=== PATIENT | female | born 1940 | race Caucasian/White ===

== ENCOUNTER 2020-04-17 10:19 | Outpatient (CLI) | payer MEDICARE, SELFPAY ==
--- NOTE | ~2020-04-17 | MM_ITS ---
EXAMINATION: MM screening [facility] BI w delfin HISTORY: Screening TECHNIQUE: Craniocaudal and mediolateral oblique 3-D tomosynthesis images were obtained and synthetic 2-D images were generated. CAD analysis was submitted and interpreted. COMPARISON: Comparison to multiple prior studies sequentially, with oldest reviewed study dated 09/18. BREAST PARENCHYMAL COMPOSITION: There are scattered areas of fibroglandular density. FINDINGS: There is architectural distortion in the right breast, consistent with previous lumpectomy. There is no evidence of suspicious mass, calcification, or architectural distortion to suggest malig micha in either breast. There has been no suspicious interval change. IMPRESSION: 1. No mammographic evidence of malignancy. 2. Recommend routine screening mammography in one year. BI-RADS Category 2: Benign finding(s). Reviewed, dictated and finalized at location A.
== END 2020-04-17 10:20 | disposition home or self-care (01) ==
LOC: ANHIMG 10:24
PROVIDERS: PCP Internal Medicine; Visit Provider Internal Medicine
DX: Z12.31 Encounter for screening mammogram for malignant neoplasm of breast (principal)
CPT/HCPCS: 77063; 77067

== ENCOUNTER 2020-11-02 15:35 | Outpatient (CLI) | payer MEDICARE, SELFPAY | END 2020-11-02 15:36 | disposition home or self-care (01) | LOC: ANHCOVIDVC 15:35 | PROVIDERS: PCP Internal Medicine | DX: Z23 Encounter for immunization (principal) | CPT/HCPCS: 0001A; 91300 ==

== ENCOUNTER 2020-11-23 15:44 | Outpatient (CLI) | payer MEDICARE, SELFPAY | END 2020-11-23 15:45 | disposition home or self-care (01) | LOC: ANHCOVIDVC 15:44 | PROVIDERS: PCP Internal Medicine | DX: Z23 Encounter for immunization (principal) | CPT/HCPCS: 0002A; 91300 ==

== ENCOUNTER 2021-05-08 10:55 | Outpatient (CLI) | payer MEDICARE, SELFPAY ==
--- NOTE | ~2021-05-08 | MM_ITS ---
EXAMINATION: MM screening [facility] BI w delfin HISTORY: Screening mammogram TECHNIQUE: Craniocaudal and mediolateral oblique 3-D tomosynthesis images were obtained and synthetic 2-D images were generated. CAD analysis was submitted and interpreted. COMPARISON: 04/17/2020, 03/21/2019, 03/19/2018 bilateral digital screening mammogram examinations BREAST PARENCHYMAL COMPOSITION: There are scattered areas of fibroglandular density. FINDINGS: Status post right partial mastectomy for breast malignancy, surgical clips and stable posto perative surgical architectural distortion. There is no evidence of suspicious mass, calcification, o r architectural distortion to suggest malignancy in either breast. There has been no suspicious inter ratna change. IMPRESSION: 1. Status post right partial mastectomy for breast cancer. No mammographic evidence of malignancy. 2. Recommend routine screening mammography in one year. BI-RADS Category 2: Benign finding(s). Reviewed, dictated and finalized at location A. IMPRESSION: 1. Status post right partial mastectomy for breast cancer. No mammographic evid ence of malignancy. 2. Recommend routine screening mammography in one year. BI-RADS Category 2: Benign finding(s).
== END 2021-05-08 10:56 | disposition home or self-care (01) ==
LOC: ANHIMG 10:57
PROVIDERS: PCP Internal Medicine; Visit Provider Internal Medicine
DX: Z12.31 Encounter for screening mammogram for malignant neoplasm of breast (principal); Z90.11 Acquired absence of right breast and nipple; Z85.3 Personal history of malignant neoplasm of breast
CPT/HCPCS: 77063; 77067

== ENCOUNTER 2021-12-15 09:28 | Outpatient (CLI) | payer MEDICARE, SELFPAY | END 2021-12-15 09:29 | disposition home or self-care (01) | LOC: ANHVASCINF 09:30 | PROVIDERS: PCP Internal Medicine | DX: C43.4 Malignant melanoma of scalp and neck (principal) | CPT/HCPCS: 96523 ==

== ENCOUNTER 2021-12-31 14:34 | Outpatient (CLI) | payer MEDICARE, SELFPAY ==
--- NOTE | ~2021-12-31 | XR_ITS ---
EXAMINATION: XR lumbar spine 2-3V DATE: 12/31/2021 14:52 INDICATION: Low back pain TECHNIQUE: Anteroposterior and lateral views of the lumbar spine, and cone-down lateral view of the l umbosacral junction were obtained. COMPARISON: None. FINDINGS: There is levoscoliosis of the lumbar spine. There are 4 mm of retrolisthesis of T12 on L1 a nd L1 on L2 and 5 mm of anterolisthesis of L4 on L5. There is no fracture. There is severe loss of in tervertebral disc space height at L5-S1 and moderate loss of disc space height throughout the remaind er of the lumbar spine. There is severe facet osteoarthritis of the lower lumbar spine. The vertebral body heights are maintained. Small degenerative osteophytes project from the anterior endplates of m ultiple vertebral bodies. Calcified atherosclerosis is noted. IMPRESSION: 1. Moderate lumbar spondylosis without acute findings. Reviewed, dictated and finalized at location B.
== END 2021-12-31 14:35 | disposition home or self-care (01) ==
PROVIDERS: PCP Internal Medicine; Visit Provider Family Medicine
DX: M47.817 Spondylosis without myelopathy or radiculopathy, lumbosacral region (principal)
CPT/HCPCS: 72100

== ENCOUNTER 2022-10-19 09:40 | Outpatient (CLI) | payer MEDICARE, SELFPAY ==
[2022-10-19 13:03] LABS: Cholesterol 187 mg/dL (0-200); HDL Direct 64 mg/dL; Triglycerides 126 mg/dL (<150)
[2022-10-19 13:15] LABS: LDL Cholesterol Direct 73 mg/dL
[2022-10-19 13:24] LABS: Free T4 Free Thyroxine 2.29 ng/mL (0.78-2.19)
[2022-10-19 13:35] LABS: Thyroid Stimulating Hormone 0.048 uIU/mL (0.465-4.680)
[2022-10-22 04:26] LABS: Thyroid Peroxidase Antibodies 16 IU/mL (<9)
== END 2022-10-19 09:41 | disposition home or self-care (01) ==
LOC: ANHWCLAB 09:41
PROVIDERS: Visit Provider Internal Medicine
DX: E03.9 Hypothyroidism, unspecified (principal)
CPT/HCPCS: 36415; 80061; 84439; 84443; 86376

== ENCOUNTER 2023-06-08 09:32 | Outpatient (CLI) | payer MEDICARE, SELFPAY ==
[2023-06-08 10:13] LABS: Alanine Aminotransferase 314 U/L (6-35); Albumin Level 3.3 g/dL (3.5-5.1); Alkaline Phosphatase 274 U/L (38-126); Anion Gap 4 mmol/L (8-16); Aspartate Amino Transferase 103 U/L (14-36); Bilirubin,Total 0.8 mg/dL (0.2-1.3); Blood Urea Nitrogen 18 mg/dL (7-17); Calcium 8.5 mg/dL (8.4-10.2); Carbon Dioxide 24 mmol/L (22-30); Chloride 107 mmol/L (98-107); Estimated Glomerular Filt Rate > 60; Glucose 80 mg/dL (65-110); Potassium 3.5 mmol/L (3.4-5.0); Sodium 135 mmol/L (137-145)
== END 2023-06-08 09:33 | disposition home or self-care (01) ==
PROVIDERS: PCP Family Medicine
DX: C43.4 Malignant melanoma of scalp and neck (principal); C78.02 Secondary malignant neoplasm of left lung
CPT/HCPCS: 36415; 36592; 80053

== ENCOUNTER 2023-07-16 10:31 | Emergency (ER) | payer MEDICARE, SELFPAY ==
--- NOTE | ~2023-07-16 | XR_ITS ---
EXAMINATION: XR chest 2V DATE: 07/16/2023 11:49 INDICATION: Left flank and chest wall pain. TECHNIQUE: Frontal and lateral views of the chest were obtained. COMPARISON: Chest 2 views 12/09/2009, PET/CT 10/16/2018 FINDINGS: A calcified right lung nodule is consistent with old granulomatous disease. There are airsp grant opacities in left lower lung zone. No pleural effusion or pneumothorax. The heart size is normal. There is a right internal jugular port with tip at superior cavoatrial junction. IMPRESSION: 1. Airspace opacities in left lower lung zone, consistent with atelectasis versus pneumonia. Reviewed, dictated and finalized at location A. ECTOR MACHINE CUT GLASS IMPRESSION: 1. Airspace opacities in left lower lung zone, consistent with atelectasis vers us pneumonia.
[2023-07-16 10:32] VITALS: BP 172/81; PULSE 86; RESP 20; TEMP 36; O2SAT 99
[2023-07-16 10:50] LABS: Basophils Percent Auto 0.2 % (0.2-1.2); Eosinophils Percent Auto 0.1 % (0-4.4); Hematocrit 37.7 % (37.0-47.0); Hemoglobin 11.8 g/dL (12.0-15.0); Immature Granulocyte Absolute 0.37 K/mm3 (0.00-0.031); Immature Granulocyte Percent A 2.3 % (0-0.5); Lymphocytes Absolute Auto 1.52 K/mm3 (0.9-3.2); Lymphocytes Percent Auto 9.3 % (18.3-44.2); Mean Corpuscular HGB Conc 31.3 g/dl (32-36); Mean Corpuscular Hemoglobin 29.9 pg (26-34); Mean Corpuscular Volume 95.4 fl (80-100); Mean Platelet Volume 9.2 fl (7.4-10.4); Monocytes Absolute Auto 0.8 K/mm3 (0.1-0.6); Neutrophils Absolute Auto 13.7 K/mm3 (1.3-6.7); Neutrophils Percent Auto 83.1 % (45.5-73.1); Platelet Count Result 243 k/mm3 (150-375); Red Blood Count 3.95 M/mm3 (4.2-5.4); White Blood Count 16.4 K/mm3 (4.5-10.0)
[2023-07-16 10:56] VITALS: BP 160/78; PULSE 78; RESP 20; O2SAT 99
[2023-07-16 11:01] VITALS: BP 161/77; PULSE 83; RESP 20; O2SAT 98
[2023-07-16 11:01] LABS: Alanine Aminotransferase 137 U/L (6-35); Albumin Level 3.8 g/dL (3.5-5.1); Alkaline Phosphatase 115 U/L (38-126); Anion Gap 8 mmol/L (8-16); Aspartate Amino Transferase 50 U/L (14-36); Bilirubin,Total 0.7 mg/dL (0.2-1.3); Blood Urea Nitrogen 16 mg/dL (7-17); Calcium 8.6 mg/dL (8.4-10.2); Carbon Dioxide 22 mmol/L (22-30); Chloride 103 mmol/L (98-107); Estimated CRCL calculation 45 ml/min; Estimated Glomerular Filt Rate > 60; Glucose 155 mg/dL (65-110); Lipase 97 U/L (23-300); Potassium 4.1 mmol/L (3.4-5.0); Sodium 133 mmol/L (137-145)
--- NOTE | 2023-07-16 11:18 | ED.GENADULT ---
HPI - General Adult General Chief complaint: Abdominal Pain Stated complaint: left flank pain Time Seen by Provider: 07/16/23 10:43 History of Present Illness HPI narrative: Patient is an 83-year-old female who presents ER with left-sided back pain. Is located in the thorax region laterally. It is worse with physical movements. No pain with deep breath. No runny nose or sore throat or productive cough. No trauma. No lower extremity numbness or weakness. No urinary issues. Cannot describe any alleviating factors. Related Data Allergies Allergy/AdvReac Type Severity Reaction Status Date / Time No Known Allergies Allergy Verified 03/02/23 11:57 Review of Systems Review of Systems: All systems reviewed & are unremarkable except as noted in HPI and below Constitutional: Constitutional: Denies chills and Denies fever(s) Cardiovascular: Cardiovascular: Denies chest pain, Denies rapid heart rate and Denies radiating jaw, neck or arm pain Respiratory: Respiratory: Denies cough, Denies dyspnea and Denies wheezing Gastrointestinal: Gastrointestinal: Denies abdominal pain, Denies nausea and Denies vomiting Musculoskeletal: Musculoskeletal: Reports back pain, Denies arthralgias and Denies joint swelling PMFSH Past Medical History Medical History Epigastric abdominal pain Essential (primary) hypertension Hyperlipidemia LDL goal <130 Hypothyroidism, unspecified Malignant melanoma of scalp Thyroid disorder Family History Family History Father Family history of liver disease, Onset Age: 55 Mother Family history of malignant neoplasm, Onset Age: 44 Other Family history of alcoholism Social History Social History Social History: Caffeine-coffee daily Smoking status: Former smoker Second hand tobacco smoke exposure: No Smoking end date: 09/04/94 Alcohol intake: never Exam Narrative: GENERAL: Well-appearing, well-nourished, and in no acute distress. HEAD: Normocephalic, atraumatic. ENT: Mucous membranes moist. CHEST: Clear to auscultation. No respiratory distress. HEART: Regular rate and rhythm. Normal peripheral pulses. Back: No reproducible midline or paraspinal muscle tenderness of the T/L-spine. No CVA tenderness. ABDOMEN: Soft, nontender, nondistended. EXTREMITIES: Normal range of motion. No edema. SKIN: Warm, dry, no rash. NEURO: Alert and oriented x3. PSYCH: Normal mood and affect. Course Course Emergency Course: Patient resting comfortably. Informed of results. Will start on oral antibiotics. Discharge home. Vital Signs Vital signs: Vital Signs Temperature 96.8 F L 07/16/23 10:32 Pulse Rate 86 07/16/23 10:32 Respiratory Rate 20 07/16/23 10:32 Blood Pressure 172/81 H 07/16/23 10:32 Pulse Oximetry 99 07/16/23 10:32 Oxygen Delivery Room Air 07/16/23 10:32 Temperature 98.0 F 07/16/23 12:57 Pulse Rate 68 07/16/23 13:31 Respiratory Rate 16 07/16/23 13:31 Blood Pressure 125/67 07/16/23 13:31 Pulse Oximetry 97 07/16/23 13:31 Oxygen Delivery Room Air 07/16/23 10:32 Medical Decision Making Vital Signs Vital Signs: Vital Signs Temperature 96.8 F L 07/16/23 10:32 Pulse Rate 86 07/16/23 10:32 Respiratory Rate 20 07/16/23 10:32 Blood Pressure 172/81 H 07/16/23 10:32 Pulse Oximetry 99 07/16/23 10:32 Oxygen Delivery Room Air 07/16/23 10:32 Temperature 98.0 F 07/16/23 12:57 Pulse Rate 68 07/16/23 13:31 Respiratory Rate 16 07/16/23 13:31 Blood Pressure 125/67 07/16/23 13:31 Pulse Oximetry 97 07/16/23 13:31 Oxygen Delivery Room Air 07/16/23 10:32 Lab Data 07/16/23 10:43 07/16/23 10:43 Labs: Lab Results 07/16/23 07/16/23 Range/Units 10:43 11:17 WBC 16.4 H (4.5-10.0) K/mm3 RBC 3.95 L (
[2023-07-16] MEDS: TIZANIDINE HCL 2 MG TABLET PO (11:28)
[2023-07-16 11:36] LABS: Appearance Urine Clear (Clear); Bacteria Urine 2+ /hpf; Bilirubin Urine Negative (Negative); Blood Urine Negative (Negative); Color Urine Yellow (Yellow); Glucose Urine UA Negative (Negative); Ketones Urine Negative (Negative); Leukocyte Esterase Ur Trace LEU/UL (Negative); Mucus Urine Present /lpf; Nitrate Urine Positive (Negative); Protein Urine Negative (Negative); RBC Urine 0-2 /hpf (0-2); Specific Grav Ur 1.014 (1.001-1.035); Squamous Epithelial Cell Urine None seen /hpf (Few); Urobilinogen Urine 0.2 mg/dL (<2.0)
[2023-07-16 11:40] LABS: Add Urine Microscopic? YES
[2023-07-16 12:57] VITALS: BP 145/75; PULSE 66; RESP 16; TEMP 36.7; O2SAT 100
[2023-07-16 13:31] VITALS: BP 125/67; PULSE 68; RESP 16; O2SAT 97
== END 2023-07-16 13:42 | disposition home or self-care (01) ==
PROVIDERS: Physician Assistant; Emergency Provider Emergency Medicine; PCP Family Medicine
DX: J18.9 Pneumonia, unspecified organism (principal); R82.998 Other abnormal findings in urine; I10 Essential (primary) hypertension; E78.5 Hyperlipidemia, unspecified; E03.9 Hypothyroidism, unspecified; Z85.820 Personal history of malignant melanoma of skin; Z87.891 Personal history of nicotine dependence
CPT/HCPCS: 36415; 71046; 80053; 81001; 83690; 85025; 87077; 87086; 87186; 99283; A9270

== ENCOUNTER 2023-07-19 06:42 | Inpatient (IN) | payer MEDICARE, SELFPAY ==
[2023-07-19] VITALS (7 sets, daily range): BP systolic 143–161; BP diastolic 62–77; PULSE 65–92; RESP 14–20; TEMP 36.3–36.8; O2SAT 97–99
--- NOTE | ~2023-07-19 | CT_ITS ---
EXAMINATION: CT brain wo con DATE: 07/19/2023 09:35 INDICATION: Fall. Found on floor at 0300 hours. TECHNIQUE: Computed tomography (CT) of the head was performed without intravenous contrast. The mA wa s adjusted according to patient size. Iterative reconstruction technique was employed. Exam dose: 60 5.33 mGy-cm total exam DLP. COMPARISON: None FINDINGS: Right vertebral and bilateral carotid siphon internal carotid artery calcifications and pro minent patchy diminished attenuation of the cerebral white matter, likely due to chronic small vessel ischemic changes. Right chronic basal ganglia lacunar infarcts. There is central and cortical cerebral and cerebellar volume loss consistent with patient chronologic al age of 83 years. Intracranial mass lesion or hemorrhage, midline shift or mass effect or subdural or epidural hematoma is detected. No fracture or bone destruction of the cranial vault. The mastoid air cells and included paranasal si nuses are unremarkable. IMPRESSION: Cerebral atherosclerosis and chronic small vessel ischemic changes of cerebral white mat ter Chronic right basal ganglia lacunar infarcts No skull fracture or acute intracranial finding Reviewed, dictated and finalized at Location A. Reviewed, dictated and finalized at location B. CIATE RESEARCH SCIENTIST IMPRESSION: Cerebral atherosclerosis and chronic small vessel ischemic changes of cerebral white matter Chronic right basal ganglia lacunar infarcts No skull fracture or acute intracranial finding
--- NOTE | ~2023-07-19 | XR_ITS ---
EXAMINATION: XR chest 2V DATE: 07/19/2023 08:33 INDICATION: Chest wall pain. Fall. TECHNIQUE: Frontal and lateral views of the chest were obtained. COMPARISON: Chest 2 views 07/16/2023, PET/CT 10/16/2018 FINDINGS: A calcified right lung nodule is consistent with old granulomatous disease. No pleural effu holly or pneumothorax. The heart size is normal. There is a right internal jugular port with tip in spears perior cavoatrial junction. IMPRESSION: 1. No acute cardiopulmonary disease. Reviewed, dictated and finalized at location A. BLADE POLISHER
[2023-07-19] MEDS: SODIUM CHLORIDE 0.9% IV 1,000 ML 999 ML IV CONT (08:08)
[2023-07-19 08:12] LABS: Basophils Percent Auto 0.1 % (0.2-1.2); Hematocrit 37.1 % (37.0-47.0); Hemoglobin 12.3 g/dL (12.0-15.0); Immature Granulocyte Absolute 0.25 K/mm3 (0.00-0.031); Immature Granulocyte Percent A 2.2 % (0-0.5); Lymphocytes Percent Auto 6.2 % (18.3-44.2); Mean Corpuscular HGB Conc 33.2 g/dl (32-36); Mean Corpuscular Hemoglobin 30.1 pg (26-34); Mean Corpuscular Volume 90.7 fl (80-100); Mean Platelet Volume 9.4 fl (7.4-10.4); Monocytes Absolute Auto 0.3 K/mm3 (0.1-0.6); Monocytes Percent Auto 2.9 % (2.6-8.5); Neutrophils Absolute Auto 9.9 K/mm3 (1.3-6.7); Neutrophils Percent Auto 88.6 % (45.5-73.1); Platelet Count Result 241 k/mm3 (150-375); Red Blood Count 4.09 M/mm3 (4.2-5.4); Red Cell Distribution Width 14.8 % (11.5-14.5); White Blood Count 11.2 K/mm3 (4.5-10.0)
[2023-07-19 08:22] LABS: Alanine Aminotransferase 100 U/L (6-35); Albumin Level 3.7 g/dL (3.5-5.1); Alkaline Phosphatase 101 U/L (38-126); Anion Gap 9 mmol/L (8-16); Aspartate Amino Transferase 39 U/L (14-36); Bilirubin,Total 1.1 mg/dL (0.2-1.3); Blood Urea Nitrogen 18 mg/dL (7-17); Calcium 8.5 mg/dL (8.4-10.2); Carbon Dioxide 21 mmol/L (22-30); Chloride 99 mmol/L (98-107); Estimated CRCL calculation 50 ml/min; Estimated Glomerular Filt Rate > 60; Glucose 136 mg/dL (65-110); Potassium 3.8 mmol/L (3.4-5.0); Sodium 129 mmol/L (137-145)
[2023-07-19 08:23] LABS: Lactic Acid Reflex 1.1 mmol/L (0.7-2.0)
--- NOTE | 2023-07-19 09:22 | ED.GENADULT ---
HPI - General Adult General Chief complaint: Fall Stated complaint: fall, shingles Time Seen by Provider: 07/19/23 07:26 History of Present Illness HPI narrative: Patient is an 83-year-old female who presents ER after a fall this morning. Occurred around 3:00 a.m.. Patient reports she is walking and legs were too weak and she collapsed to the ground. She denies hitting her head or losing consciousness. She does have history of gamma knife procedure in April of 2023 for a tumor. Patient last had immunotherapy for melanoma metastases 2 months ago. She has been off immunotherapy due to elevated liver enzymes. Patient was seen in the ER couple days ago and have possible pneumonia was started on azithromycin and she has been taking medication. She has had increased discomfort to her right chest wall and over the last 48 hours has developed shingles rash. She is not yet on any anti viral therapy. Additionally she had a urine culture that grew out E coli that is sensitive to ceftriaxone. Patient not originally treated for UTI issues asymptomatic. She still denies urinary symptoms. Related Data Home Medications Medication Instructions Recorded Confirmed levothyroxine 75 mcg capsule 75 mcg PO DAILY 07/18/23 07/19/23 pantoprazole 40 mg tablet,delayed 40 mg PO QAM 07/18/23 07/19/23 release (Protonix) prednisone 20 mg tablet 20 mg PO BID 07/18/23 07/19/23 Allergies Allergy/AdvReac Type Severity Reaction Status Date / Time No Known Allergies Allergy Verified 07/18/23 09:43 Review of Systems Review of Systems: All systems reviewed & are unremarkable except as noted in HPI and below Constitutional: Constitutional: Denies chills, Reports fatigue, Denies fever(s) and Reports weakness ENT: Denies nasal congestion and Denies sore throat Cardiovascular: Cardiovascular: Denies chest pain, Denies rapid heart rate and Denies radiating jaw, neck or arm pain Respiratory: Respiratory: Denies cough and Denies dyspnea Gastrointestinal: Gastrointestinal: Denies abdominal pain, Denies nausea and Denies vomiting Integumentary/Breasts: Skin/Breast: Reports erythema and Reports rash PMFSH Past Medical History Medical History Epigastric abdominal pain Essential (primary) hypertension Hyperlipidemia LDL goal <130 Hypothyroidism, unspecified Malignant melanoma of scalp Thyroid disorder Family History Family History Father Family history of liver disease, Onset Age: 55 Mother Family history of malignant neoplasm, Onset Age: 44 Other Family history of alcoholism Social History Social History Social History: Caffeine-coffee daily Years smoked: 7 Smoking status: Former smoker Tobacco type: cigarettes Second hand tobacco smoke exposure: No Smoking end date: 09/04/94 Alcohol intake: never Substance use: never Lack of Transportation: No Lack of Food: Never True Current Housing: I Have Housing Concerned About Future Housing: No Difficulty Paying Gas/Electric Bills: No Difficulty Paying for Meds: No Currently Unemployed: No Education: Grade School Difficulty w/ Childcare or Family Care: No Spiritual care concerns: No Exam Narrative: GENERAL: Well-appearing, well-nourished, and in no acute distress. HEAD: Normocephalic, atraumatic. EYES: PERRL and EOMI. ENT: Mucous membranes moist. CHEST: Clear to auscultation. No respiratory distress. HEART: Regular rate and rhythm. Normal peripheral pulses. ABDOMEN: Soft, nontender, nondistended. EXTREMITIES: Normal range of motion. No edema. SKIN: Warm, dry. Shingles rash extending along the left side lower ribs from the back to the abdomen. Approximately T10. NEURO: No focal deficits. Alert and oriented x3. PSYCH: Normal mood and affect. Course Course Emergency Course: Dior
--- NOTE | 2023-07-19 12:07 | ADMGEN ---
This patient, Lanette Ceballos, was admitted to 2 Medical Room 257-01. Patient/family oriented to hospital policies and general routines including ID bracelet, bed and alarms, visiting hours, pain management, procedures, bathroom and other care routines, personal items, smoking policy, room service/diet, and visiting hours. Information on how to activate the Rapid Response Team has been discussed. Patient/Family are encouraged to report perceived risks to care and to ask questions if they do not understand what they are told or what they should do.
[2023-07-19] MEDS: ACYCLOVIR SODIUM IVPB ×2 (12:39→21:26)
[2023-07-19] MEDS: WATER IVPB ×2 (12:39→21:26)
[2023-07-19] MEDS: DEXTROSE 5% IVPB ×2 (12:39→21:26)
[2023-07-19] MEDS: SODIUM CHLORIDE 0.9% IV 1,000 ML 125 ML IV CONT (12:44)
--- NOTE | 2023-07-19 17:23 | PM.IMHP ---
H&P: HPI History of Present Illness Date/Time: 07/19/23 17:23 Chief Complaint: Weakness, Fall Narrative: 83 y/o F presents here for a ground-level fall, weakness, and rash with PMH of HTN, hypothyroidism, Malignant melanoma, breast cancer, lung cancer, and hyperlipidemia. Patient presented on 07/16 for left-sided back pain that had worsened with physical movements. No URI symptoms. No trauma. Pain contributed to pneumonia, CXR impression consistent with atelectasis versus pneumonia (L). discharged home on azithromycin. Then seen by PCP for ER follow-up on 07/18, there she reported some relief from her back pain after initiation of antibiotics. Urine culture had resulted from previous ER visit, showing E coli bacteriuria. Patient denied urinary complaints. Due to incomplete resolution of back pain, Flexeril was initiated by her PCP. Then today, 07/19 patient returned to the ED after ground level fall this morning around 3:00 a.m. Patient reports that she was walking when it felt like her legs gave out. She does not remember specifics about the event but reports that she was awake for the fall. Denies LOC or head strike. Has not previously had weakness in her lower extremities and has not required an assistive device. Currently endorsing generalized weakness without focal deficit. Denies any current pain. Currently has erythematous rash following dermatome across left ribcage, does not cross midline, and no open vesicles. +itching with rash and mild tenderness. reported to ED provider that rash developed in the last 48 hours, reported to me that rash has been present for the past 2 weeks. Rash consistent with shingles. No previous shingles vaccine. Continues to deny urinary symptoms. Review of Systems Review of Systems: All systems reviewed & are unremarkable except as noted in HPI and below PMFSH Past Medical History Medical History (Updated 07/20/23 @ 02:18 by Jennifer Quiñonez APRN) Breast cancer Essential (primary) hypertension Hyperlipidemia LDL goal <130 Hypothyroidism, unspecified Lung cancer Malignant melanoma of scalp Surgical History Surgical History (Updated 07/20/23 @ 02:14 by Jennifer Quiñonez APRN) History of breast surgery resection of nipple/mass r/t cancer History of surgery of head resection - part of scalp Family History Family History Father Family history of liver disease, Onset Age: 55 Mother Family history of malignant neoplasm, Onset Age: 44 Other Family history of alcoholism Social History Social History (Updated 07/20/23 @ 02:14 by Jennifer Quiñonez APRN) Social History: Caffeine-coffee daily. Currently lives at home with her . Surrogate decision maker Ollie leslie, spouse. May also call Rober leslie, son. Code status: DNR. Years smoked: 7 Smoking status: Former smoker Tobacco type: cigarettes Second hand tobacco smoke exposure: No Smoking end date: 09/04/94 Alcohol intake: never Substance use: never Lack of Transportation: No Lack of Food: Never True Current Housing: I Have Housing Concerned About Future Housing: No Difficulty Paying Gas/Electric Bills: No Difficulty Paying for Meds: No Currently Unemployed: No Education: Grade School Difficulty w/ Childcare or Family Care: No Spiritual care concerns: No Meds Home Medications and Allergies Home Medications Medication Instructions Recorded Confirmed Type levothyroxine 75 mcg capsule 75 mcg PO DAILY 07/18/23 07/19/23 History pantoprazole 40 mg tablet,delayed 40 mg PO QAM 07/18/23 07/19/23 History release (Protonix) prednisone 20 mg tablet 20 mg PO BID 07/18/23 07/19/23 History Allergies Allergy/AdvReac Type Severity Reaction Status Date / Time No Known Allergies Allergy Verified 07/18/23 09:43 Vital Signs Vital Signs - 24 hr 07/19/23 07:06 07/19/23 08:00 07/19/23 10:47
[2023-07-19] MEDS: HYDROcodone/acetaminophen (*CRX) 5-325 MG TABLET 1 TAB PO (19:46)
[2023-07-20] MEDS: SODIUM CHLORIDE 0.9% IV 1,000 ML 125 ML IV CONT (00:59)
[2023-07-20 04:01] VITALS: BP 142/55; PULSE 69; RESP 18; TEMP 36.4; O2SAT 99
[2023-07-20] MEDS: LEVOTHYROXINE SODIUM 75 MCG TABLET PO (05:45)
[2023-07-20] MEDS: WATER IVPB ×3 (05:45→21:08)
[2023-07-20] MEDS: ACYCLOVIR SODIUM IVPB ×3 (05:45→21:08)
[2023-07-20] MEDS: DEXTROSE 5% IVPB ×3 (05:45→21:08)
[2023-07-20] MEDS: CENTRAL LINE FLUSH 10 ML IV PUSH ×3 (05:46→21:10)
[2023-07-20 05:53] LABS: Basophils Percent Auto 0.1 % (0.2-1.2); Hematocrit 33.8 % (37.0-47.0); Hemoglobin 10.8 g/dL (12.0-15.0); Immature Granulocyte Absolute 0.19 K/mm3 (0.00-0.031); Lymphocytes Absolute Auto 1.84 K/mm3 (0.9-3.2); Lymphocytes Percent Auto 18.9 % (18.3-44.2); Mean Corpuscular Hemoglobin 29.6 pg (26-34); Mean Corpuscular Volume 92.6 fl (80-100); Monocytes Absolute Auto 0.6 K/mm3 (0.1-0.6); Monocytes Percent Auto 6.4 % (2.6-8.5); Neutrophils Absolute Auto 7.1 K/mm3 (1.3-6.7); Neutrophils Percent Auto 72.6 % (45.5-73.1); Platelet Count Result 191 k/mm3 (150-375); Red Blood Count 3.65 M/mm3 (4.2-5.4); White Blood Count 9.7 K/mm3 (4.5-10.0)
[2023-07-20 06:08] LABS: Alanine Aminotransferase 70 U/L (6-35); Albumin Level 2.8 g/dL (3.5-5.1); Alkaline Phosphatase 75 U/L (38-126); Anion Gap 5 mmol/L (8-16); Aspartate Amino Transferase 27 U/L (14-36); Bilirubin,Total 0.7 mg/dL (0.2-1.3); Blood Urea Nitrogen 13 mg/dL (7-17); Calcium 7.2 mg/dL (8.4-10.2); Carbon Dioxide 21 mmol/L (22-30); Chloride 107 mmol/L (98-107); Estimated CRCL calculation 50 ml/min; Estimated Glomerular Filt Rate > 60; Glucose 92 mg/dL (65-110); Magnesium 2.5 mg/dL (1.6-2.3); Potassium 3.4 mmol/L (3.4-5.0); Sodium 133 mmol/L (137-145)
[2023-07-20 06:19] LABS: Troponin I < 0.012 ng/mL (0.000-0.034)
[2023-07-20] MEDS: ENOXAPARIN 40 MG/0.4 ML SYRINGE SUB-Q (08:53)
[2023-07-20] MEDS: predniSONE 20 MG TABLET PO ×2 (08:54→17:26)
[2023-07-20] MEDS: PANTOPRAZOLE 40 MG TABLET PO (08:55)
[2023-07-20] MEDS: ACETAMINOPHEN 325 MG TABLET 650 MG PO (08:57)
--- NOTE | 2023-07-20 10:27 | PM.IMPN ---
Progress Note: A&P Assessment and Plan (1) Acute UTI: Code(s): N39.0 - Urinary tract infection, site not specified Status: Acute (2) Shingles: Qualifiers: Herpes zoster complications: without complications Qualified Code(s): B02.9 - Zoster without complications Code(s): B02.9 - Zoster without complications Status: Acute (3) Weakness: Code(s): R53.1 - Weakness Status: Acute Plan 83F w/ PMH HTN, hypothyroidism, metastatic melanoma, HLD presents after ground level fall at home. Found to have UTI and shingles and admitted on 07/20 1) fall - likely 2/2 to weakness 2/2 to UTI. - ceftriaxone started 07/19 - f/u urine and blood cultures - IVF dc'ed - PT/OT consult and probably placement 2) shingles - beginning to encrust. considering immunosuppressed will continue IV acyclovir started on 07/19 - shingles vaccination needed 3) metastatic melanoma - immunotherapy stopped 2 months ago 2/2 transamnitis. ctm LFTs - cont oral prednisone FEN: saline lock IV, heart healthy diet GI prophylaxis: on protonix DVT prophylaxis: lovenox Lines: pIV Code Status: DNR Dispo: stable More than 25 minutes spent on chart review, patient interaction and assessment and plan. Subjective Date/time seen: 07/20/23 10:27 Interval history: NAOE. pt denies pain. she has told many staff different timelines about the presence of her rash. today she tells me it has been there for a month. Review of Systems Review of Systems: All systems reviewed & are unremarkable except as noted in HPI and below Exam Const: General: comfortable and no acute distress Eyes: Pupils: Equal, round and reactive pupils present Neck: Neck: supple Resp: Effort & Inspection: normal respiratory effort Auscultation: clear to auscultation bilaterally Cardio: Rate: regular rate Rhythm: regular rhythm Heart sounds: no gallops, no murmurs and no rubs GI: GI Palp: Yes Soft to palpation Auscultation: normal bowel sounds Skin: Other: erythematous papular rash with vesicles now dehisced in a dermatomal distribution of left chest and back. not tender to palpation Extrem: General: no edema Objective Data Vital Signs Vital Signs: Vital Signs - 24 hr 07/19/23 10:47 07/19/23 11:45 07/19/23 14:00 Temperature 97.7 F 97.7 F Pulse Rate 65 74 72 Respiratory Rate 14 14 16 Blood Pressure 148/62 H 150/67 H 152/68 H Pulse Oximetry 97 97 98 Oxygen Delivery 07/19/23 19:30 07/19/23 20:08 07/20/23 04:01 Temperature 97.4 F L 97.6 F Pulse Rate 72 73 69 Respiratory Rate 16 20 18 Blood Pressure 143/70 H 142/55 H Pulse Oximetry 98 98 99 Oxygen Delivery Room Air 07/20/23 08:00 Temperature Pulse Rate Respiratory Rate Blood Pressure Pulse Oximetry Oxygen Delivery Room Air Intake/Output Intake/Output: Intake & Output 07/17/23 07/18/23 07/19/23 07/20/23 23:59 23:59 23:59 23:59 Intake Total 2754.3 490 Output Total 400 Balance 2754.3 90 Meds/Results Medications: Active Medications Generic Name Dose Route Start Last Admin Trade Name Freq PRN Reason Stop Dose Admin Acetaminophen 650 mg 07/19/23 10:44 07/20/23 08:57 Acetaminophen 325 Mg Tablet PO 650 mg Q4H PRN Administration Mild Pain (1-3) or Fever Hydrocodone Bitart/Acetaminophen 1 tab 07/19/23 10:44 07/19/23 19:46 Hydrocodone/Acetaminophen (*Crx) 5-325 Mg Tablet PO 1 tab Q4H PRN Administration Pain Rated 4-6 Calamine 1 applic 07/20/23 02:37 Calamine Lotion 120 Ml Bottle TOPICAL QAM PRN Itching Enoxaparin Sodium 40 mg 07/20/23 09:00 07/20/23 08:53 Enoxaparin 40 Mg/0.4 Ml Syringe SUB-Q 40 mg DAILY ALEXSANDER Administration Heparin Sodium (Beef Lung) 50 units 07/19/23 21:15 Heparin Flush 50 Units/5 Ml Syringe IV PUSH PRN PRN after blood draws Heparin Sodium (Beef Lung) 50 units 07/19/23 21:15 Heparin Flush 50 Units/5 Ml Syringe IV PUSH
--- NOTE | 2023-07-20 11:28 | PC.NURSE ---
On 07/20/23, the student, [Margareth Frost], provided care and completed [facility] documentation on this patient. I have reviewed the student's documentation and agree with the findings.
[2023-07-20 13:03] LABS: Free T4 Free Thyroxine Reflex 1.74 ng/dL (0.78-2.19)
[2023-07-20 13:55] LABS: Total Triiodothyronine (T3) 0.57 NG/ML (0.97-1.69)
[2023-07-20 14:00] VITALS: BP 101/47; PULSE 78; RESP 16; TEMP 36.4; O2SAT 98
[2023-07-20 20:21] VITALS: BP 122/58; PULSE 75; RESP 20; TEMP 36.3; O2SAT 96
[2023-07-21 04:45] VITALS: BP 146/71; PULSE 71; RESP 20; TEMP 36.1; O2SAT 97
[2023-07-21] MEDS: DEXTROSE 5% IVPB ×3 (05:20→21:34)
[2023-07-21] MEDS: WATER IVPB ×3 (05:20→21:34)
[2023-07-21] MEDS: ACYCLOVIR SODIUM IVPB ×3 (05:20→21:34)
[2023-07-21] MEDS: LEVOTHYROXINE SODIUM 75 MCG TABLET PO (05:20)
[2023-07-21] MEDS: CENTRAL LINE FLUSH 10 ML IV PUSH ×3 (05:21→21:35)
[2023-07-21 06:13] LABS: Basophils Percent Auto 0.1 % (0.2-1.2); Hematocrit 31.6 % (37.0-47.0); Hemoglobin 10.5 g/dL (12.0-15.0); Immature Granulocyte Absolute 0.13 K/mm3 (0.00-0.031); Immature Granulocyte Percent A 1.7 % (0-0.5); Lymphocytes Absolute Auto 0.68 K/mm3 (0.9-3.2); Lymphocytes Percent Auto 9.1 % (18.3-44.2); Mean Corpuscular HGB Conc 33.2 g/dl (32-36); Mean Corpuscular Hemoglobin 30.3 pg (26-34); Mean Corpuscular Volume 91.3 fl (80-100); Mean Platelet Volume 9.5 fl (7.4-10.4); Monocytes Absolute Auto 0.3 K/mm3 (0.1-0.6); Monocytes Percent Auto 3.6 % (2.6-8.5); Neutrophils Absolute Auto 6.4 K/mm3 (1.3-6.7); Neutrophils Percent Auto 85.5 % (45.5-73.1); Platelet Count Result 180 k/mm3 (150-375); Red Blood Count 3.46 M/mm3 (4.2-5.4); Red Cell Distribution Width 15.1 % (11.5-14.5); White Blood Count 7.4 K/mm3 (4.5-10.0)
[2023-07-21 06:23] LABS: Alanine Aminotransferase 57 U/L (6-35); Albumin Level 2.8 g/dL (3.5-5.1); Alkaline Phosphatase 68 U/L (38-126); Anion Gap 5 mmol/L (8-16); Aspartate Amino Transferase 27 U/L (14-36); Bilirubin,Total 0.5 mg/dL (0.2-1.3); Blood Urea Nitrogen 16 mg/dL (7-17); Calcium 8.1 mg/dL (8.4-10.2); Carbon Dioxide 22 mmol/L (22-30); Chloride 104 mmol/L (98-107); Estimated CRCL calculation 44 ml/min; Estimated Glomerular Filt Rate > 60; Glucose 178 mg/dL (65-110); Magnesium 2.3 mg/dL (1.6-2.3); Potassium 3.8 mmol/L (3.4-5.0); Sodium 131 mmol/L (137-145)
--- NOTE | 2023-07-21 08:15 | PC.NURSE ---
Placed patient on airborne precautions, patient has open sores from shingles rash
[2023-07-21] MEDS: PANTOPRAZOLE 40 MG TABLET PO (10:46)
[2023-07-21] MEDS: predniSONE 20 MG TABLET PO ×2 (10:46→16:48)
[2023-07-21] MEDS: ENOXAPARIN 40 MG/0.4 ML SYRINGE SUB-Q (10:47)
--- NOTE | 2023-07-21 11:32 | PM.IMPN ---
Progress Note: A&P Assessment and Plan (1) Acute UTI: Code(s): N39.0 - Urinary tract infection, site not specified Status: Acute (2) Shingles: Qualifiers: Herpes zoster complications: without complications Qualified Code(s): B02.9 - Zoster without complications Code(s): B02.9 - Zoster without complications Status: Acute (3) Weakness: Code(s): R53.1 - Weakness Status: Acute Plan 83F w/ PMH HTN, hypothyroidism, metastatic melanoma, HLD presents after ground level fall at home. Found to have UTI and shingles and admitted on 07/20 1) fall - likely 2/2 to weakness 2/2 to UTI - ceftriaxone started 07/19, cont for 5 days - f/u urine and blood cultures - IVF dc'ed - PT/OT consult and probable placement 2) shingles - acute stage, considering immunosuppressed will continue IV acyclovir started on 07/19 - shingles vaccination needed 3) metastatic melanoma - immunotherapy stopped 2 months ago 2/2 transaminitis. ctm LFTs - cont oral prednisone FEN: saline lock IV, heart healthy diet GI prophylaxis: on protonix DVT prophylaxis: lovenox Lines: pIV Code Status: DNR Dispo: stable More than 25 minutes spent on chart review, patient interaction and assessment and plan. including 15 minute discussion with patient and son Subjective Date/time seen: 07/21/23 11:32 Interval history: NAOE. pt has no complaints, she is very pleasant and doesn't have much to report. son, Rober, a rn coronary care unit with [facility] is present in the discussion although Review of Systems Review of Systems: All systems reviewed & are unremarkable except as noted in HPI and below Exam Const: General: comfortable and no acute distress Eyes: Pupils: Equal, round and reactive pupils present Neck: Neck: supple Resp: Effort & Inspection: normal respiratory effort Auscultation: clear to auscultation bilaterally Cardio: Rate: regular rate Rhythm: regular rhythm Heart sounds: no gallops, no murmurs and no rubs GI: GI Palp: Yes Soft to palpation Skin: Other: shingles rash unchanged Extrem: General: no edema Objective Data Vital Signs Vital Signs: Vital Signs - 24 hr 07/20/23 14:00 07/20/23 20:21 07/20/23 20:58 Temperature 97.5 F L 97.4 F L Pulse Rate 78 75 Respiratory Rate 16 20 Blood Pressure 101/47 L 122/58 L Pulse Oximetry 98 96 Oxygen Delivery Room Air 07/21/23 04:45 07/21/23 10:15 Temperature 97.0 F L Pulse Rate 71 Respiratory Rate 20 Blood Pressure 146/71 H Pulse Oximetry 97 Oxygen Delivery Room Air Intake/Output Intake/Output: Intake & Output 07/18/23 07/19/23 07/20/23 07/21/23 23:59 23:59 23:59 23:59 Intake Total 2754.3 1922.9 624.3 Output Total 1750 300 Balance 2754.3 172.9 324.3 Meds/Results Medications: Active Medications Generic Name Dose Route Start Last Admin Trade Name Freq PRN Reason Stop Dose Admin Acetaminophen 650 mg 07/19/23 10:44 07/20/23 08:57 Acetaminophen 325 Mg Tablet PO 650 mg Q4H PRN Administration Mild Pain (1-3) or Fever Hydrocodone Bitart/Acetaminophen 1 tab 07/19/23 10:44 07/19/23 19:46 Hydrocodone/Acetaminophen (*Crx) 5-325 Mg Tablet PO 1 tab Q4H PRN Administration Pain Rated 4-6 Calamine 1 applic 07/20/23 02:37 Calamine Lotion 120 Ml Bottle TOPICAL QAM PRN Itching Enoxaparin Sodium 40 mg 07/20/23 09:00 07/21/23 10:47 Enoxaparin 40 Mg/0.4 Ml Syringe SUB-Q 40 mg DAILY ALEXSANDER Administration Heparin Sodium (Beef Lung) 50 units 07/19/23 21:15 07/21/23 05:56 Heparin Flush 50 Units/5 Ml Syringe IV PUSH 50 units PRN PRN Administration after blood draws Heparin Sodium (Beef Lung) 50 units 07/19/23 21:15 Heparin Flush 50 Units/5 Ml Syringe IV PUSH PRN PRN after intermittent infusion Heparin Sodium (Beef Lung) 50 units 07/20/23 09:00 07/20/23 09:08 Heparin Flush 50 Units/5 Ml Syringe IV PUSH Not Given QAM ALEXSANDER
[2023-07-21 14:00] VITALS: BP 118/53; PULSE 99; RESP 14; TEMP 36.7; O2SAT 97
[2023-07-21 19:47] VITALS: BP 135/65; PULSE 81; RESP 16; TEMP 36.4; O2SAT 97
[2023-07-21] MEDS: CALAMINE LOTION 120 ML BOTTLE 1 APPLIC TOPICAL (21:37)
[2023-07-22 03:30] VITALS: BP 135/61; PULSE 76; RESP 16; TEMP 36.4; O2SAT 98
[2023-07-22] MEDS: CENTRAL LINE FLUSH 10 ML IV PUSH ×3 (05:22→22:13)
[2023-07-22] MEDS: LEVOTHYROXINE SODIUM 75 MCG TABLET PO (05:23)
[2023-07-22] MEDS: ACYCLOVIR SODIUM IVPB ×3 (05:25→22:11)
[2023-07-22] MEDS: WATER IVPB ×3 (05:25→22:11)
[2023-07-22] MEDS: DEXTROSE 5% IVPB ×3 (05:25→22:11)
[2023-07-22] MEDS: PANTOPRAZOLE 40 MG TABLET PO (09:50)
[2023-07-22] MEDS: ENOXAPARIN 40 MG/0.4 ML SYRINGE SUB-Q (09:51)
[2023-07-22] MEDS: predniSONE 20 MG TABLET PO ×2 (09:51→18:46)
[2023-07-22 10:05] LABS: Basophils Percent Auto 0.2 % (0.2-1.2); Hematocrit 35.4 % (37.0-47.0); Hemoglobin 11.6 g/dL (12.0-15.0); Immature Granulocyte Absolute 0.15 K/mm3 (0.00-0.031); Immature Granulocyte Percent A 1.1 % (0-0.5); Lymphocytes Percent Auto 9.2 % (18.3-44.2); Mean Corpuscular HGB Conc 32.8 g/dl (32-36); Mean Corpuscular Hemoglobin 30.1 pg (26-34); Mean Corpuscular Volume 91.9 fl (80-100); Mean Platelet Volume 9.4 fl (7.4-10.4); Monocytes Absolute Auto 0.4 K/mm3 (0.1-0.6); Monocytes Percent Auto 3.1 % (2.6-8.5); Neutrophils Absolute Auto 11.3 K/mm3 (1.3-6.7); Neutrophils Percent Auto 86.4 % (45.5-73.1); Platelet Count Result 221 k/mm3 (150-375); Red Blood Count 3.85 M/mm3 (4.2-5.4); Red Cell Distribution Width 14.7 % (11.5-14.5); White Blood Count 13.1 K/mm3 (4.5-10.0)
[2023-07-22 10:16] LABS: Alanine Aminotransferase 67 U/L (6-35); Albumin Level 3.4 g/dL (3.5-5.1); Alkaline Phosphatase 87 U/L (38-126); Anion Gap 8 mmol/L (8-16); Aspartate Amino Transferase 37 U/L (14-36); Bilirubin,Total 0.5 mg/dL (0.2-1.3); Blood Urea Nitrogen 22 mg/dL (7-17); Calcium 8.9 mg/dL (8.4-10.2); Carbon Dioxide 22 mmol/L (22-30); Chloride 102 mmol/L (98-107); Estimated CRCL calculation 44 ml/min; Estimated Glomerular Filt Rate > 60; Glucose 169 mg/dL (65-110); Magnesium 2.1 mg/dL (1.6-2.3); Potassium 4.1 mmol/L (3.4-5.0); Sodium 132 mmol/L (137-145)
--- NOTE | 2023-07-22 11:45 | PM.IMPN ---
Progress Note: A&P Assessment and Plan (1) Acute UTI: Code(s): N39.0 - Urinary tract infection, site not specified Status: Acute (2) Shingles: Qualifiers: Herpes zoster complications: without complications Qualified Code(s): B02.9 - Zoster without complications Code(s): B02.9 - Zoster without complications Status: Acute (3) Weakness: Code(s): R53.1 - Weakness Status: Acute Plan 83F w/ PMH HTN, hypothyroidism, metastatic melanoma, HLD presents after ground level fall at home. Found to have UTI and shingles and admitted on 07/20 1) fall - likely 2/2 to weakness 2/2 to UTI - ceftriaxone started 07/19, cont for 5 days - ecoli sensitive to ceftriaxone, continue. blood cultures ngtd - 07/22 leukocytosis, will check procalcitonin. patients symptomatology is unchanged, this is likely 2/2 to stress or prednisone at the moment. - PT/OT consult and probable placement 2) shingles - acute stage, considering immunosuppressed will continue IV acyclovir started on 07/19. plan to switch to PO tomorrow - shingles vaccination needed - no need for isolation at the moment, but the rash does need to be covered with dressings. consulted wound care. 3) metastatic melanoma - immunotherapy stopped 2 months ago 2/2 transaminitis. ctm LFTs - cont oral prednisone FEN: saline lock IV, heart healthy diet GI prophylaxis: on protonix DVT prophylaxis: lovenox Lines: pIV Code Status: DNR Dispo: stable More than 35 minutes spent on chart review, patient interaction and assessment and plan. Subjective Date/time seen: 07/22/23 11:45 Interval history: NAOE. patient has no complaints other than her shingles rash being itchy. she is completely amenable to going for acute rehab stay at SNF. Review of Systems Review of Systems: All systems reviewed & are unremarkable except as noted in HPI and below Exam Const: General: comfortable and no acute distress Eyes: Pupils: Equal, round and reactive pupils present Neck: Neck: supple Resp: Effort & Inspection: normal respiratory effort Auscultation: clear to auscultation bilaterally, no crackles, no rales and no rhonchi Cardio: Rate: regular rate Rhythm: regular rhythm Heart sounds: no gallops, no murmurs and no rubs GI: Inspection: non-distended GI Palp: Yes Soft to palpation and No Tenderness to palpation present (GI) Auscultation: normal bowel sounds Skin: Lesions: lesion noted (unchanged, although view obscured by abundance of calamine lotion) Extrem: General: no edema Objective Data Vital Signs Vital Signs: Vital Signs - 24 hr 07/21/23 13:24 07/21/23 14:00 07/21/23 19:47 Temperature 98.1 F 97.5 F L Pulse Rate 99 81 Respiratory Rate 14 16 Blood Pressure 118/53 L 135/65 Pulse Oximetry 97 97 Oxygen Delivery Room Air 07/21/23 21:28 07/22/23 03:30 Temperature 97.5 F L Pulse Rate 76 Respiratory Rate 16 Blood Pressure 135/61 Pulse Oximetry 98 Oxygen Delivery Room Air Intake/Output Intake/Output: Intake & Output 07/19/23 07/20/23 07/21/23 07/22/23 23:59 23:59 23:59 23:59 Intake Total 2754.3 1922.9 1922.9 634.3 Output Total 1750 300 Balance 2754.3 172.9 1622.9 634.3 Meds/Results Medications: Active Medications Generic Name Dose Route Start Last Admin Trade Name Freq PRN Reason Stop Dose Admin Acetaminophen 650 mg 07/19/23 10:44 07/20/23 08:57 Acetaminophen 325 Mg Tablet PO 650 mg Q4H PRN Administration Mild Pain (1-3) or Fever Hydrocodone Bitart/Acetaminophen 1 tab 07/19/23 10:44 07/19/23 19:46 Hydrocodone/Acetaminophen (*Crx) 5-325 Mg Tablet PO 1 tab Q4H PRN Administration Pain Rated 4-6 Calamine 1 applic 07/20/23 02:37 07/21/23 21:37 Calamine Lotion 120 Ml Bottle TOPICAL 1 applic QAM PRN Administration Itching Enoxaparin Sodium 40 mg 07/20/23 09:00 07/22/23 09:51 Enoxaparin 40 Mg/0.4 Ml Syringe SUB-Q 40 mg DAILY ALEXSANDER Administra
[2023-07-22 14:00] VITALS: BP 119/72; PULSE 99; RESP 14; TEMP 37.2; O2SAT 98
[2023-07-22 20:09] VITALS: BP 134/74; PULSE 77; RESP 18; TEMP 36.6; O2SAT 99
[2023-07-22] MEDS: CALAMINE LOTION 120 ML BOTTLE 1 APPLIC TOPICAL (22:23)
[2023-07-23 05:16] VITALS: BP 144/63; PULSE 64; RESP 18; TEMP 37.1; O2SAT 99
[2023-07-23] MEDS: CENTRAL LINE FLUSH 10 ML IV PUSH ×2 (06:18→13:53)
[2023-07-23] MEDS: LEVOTHYROXINE SODIUM 75 MCG TABLET PO (06:18)
[2023-07-23] MEDS: DEXTROSE 5% IVPB ×2 (06:20→13:53)
[2023-07-23] MEDS: ACYCLOVIR SODIUM IVPB ×2 (06:20→13:53)
[2023-07-23] MEDS: WATER IVPB ×2 (06:20→13:53)
[2023-07-23] MEDS: ENOXAPARIN 40 MG/0.4 ML SYRINGE SUB-Q (09:20)
[2023-07-23] MEDS: predniSONE 20 MG TABLET PO ×2 (09:21→17:43)
[2023-07-23] MEDS: PANTOPRAZOLE 40 MG TABLET PO (09:21)
[2023-07-23] MEDS: ACETAMINOPHEN 325 MG TABLET 650 MG PO (09:32)
[2023-07-23 09:40] LABS: Basophils Percent Auto 0.3 % (0.2-1.2); Hematocrit 35.4 % (37.0-47.0); Hemoglobin 11.5 g/dL (12.0-15.0); Immature Granulocyte Absolute 0.34 K/mm3 (0.00-0.031); Immature Granulocyte Percent A 2.4 % (0-0.5); Lymphocytes Absolute Auto 1.43 K/mm3 (0.9-3.2); Mean Corpuscular HGB Conc 32.5 g/dl (32-36); Mean Corpuscular Volume 92.4 fl (80-100); Mean Platelet Volume 9.5 fl (7.4-10.4); Monocytes Absolute Auto 0.5 K/mm3 (0.1-0.6); Monocytes Percent Auto 3.1 % (2.6-8.5); Neutrophils Absolute Auto 12.1 K/mm3 (1.3-6.7); Neutrophils Percent Auto 84.2 % (45.5-73.1); Platelet Count Result 224 k/mm3 (150-375); Red Blood Count 3.83 M/mm3 (4.2-5.4); Red Cell Distribution Width 14.6 % (11.5-14.5); White Blood Count 14.4 K/mm3 (4.5-10.0)
[2023-07-23 09:51] LABS: Anion Gap 7 mmol/L (8-16); Blood Urea Nitrogen 21 mg/dL (7-17); Calcium 8.8 mg/dL (8.4-10.2); Carbon Dioxide 23 mmol/L (22-30); Chloride 102 mmol/L (98-107); Estimated CRCL calculation 44 ml/min; Estimated Glomerular Filt Rate > 60; Glucose 163 mg/dL (65-110); Potassium 3.8 mmol/L (3.4-5.0); Sodium 132 mmol/L (137-145)
[2023-07-23 10:23] LABS: Procalcitonin 0.1 ng/mL
[2023-07-23] MEDS: CALAMINE LOTION 120 ML BOTTLE 1 APPLIC TOPICAL (12:31)
[2023-07-23 15:45] VITALS: BP 117/51; PULSE 99; RESP 20; TEMP 36.2; O2SAT 99
--- NOTE | 2023-07-23 16:00 | PM.DS ---
DS: Admitting Diagnosis Discharge Date 07/23/23 Admitting Diagnosis fall at home DS: Discharge Diagnosis Discharge Diagnosis (1) Acute UTI: Code(s): N39.0 - Urinary tract infection, site not specified Status: Acute (2) Shingles: Qualifiers: Herpes zoster complications: without complications Qualified Code(s): B02.9 - Zoster without complications Code(s): B02.9 - Zoster without complications Status: Acute (3) Weakness: Code(s): R53.1 - Weakness Status: Acute DS: Summary Hospital Course Hospital Course: 83F presented after fall at home. found to have UTI and shingle. treated adequately, will be going home with PO augmentin and acyclovir recheck white count in 2 days Time Spent with Patient Time attestation: Total time spent providing and/or coordinating discharge services: Exam Const: General: cooperative and no acute distress Resp: Effort & Inspection: normal respiratory effort Auscultation: clear to auscultation bilaterally Cardio: Rate: regular rate Rhythm: regular rhythm Heart sounds: S1 normal heart sound present and S2 normal heart sound present GI: GI Palp: No abdominal tenderness Auscultation: normal bowel sounds DS: Data Data Completed and Pending Labs on day of discharge: Labs from last 24 hours 07/23/23 09:10 WBC 14.4 H RBC 3.83 L Hgb 11.5 L Hct 35.4 L MCV 92.4 MCH 30.0 MCHC 32.5 RDW 14.6 H Plt Count 224 MPV 9.5 Immature Gran % (Auto) 2.4 H Neut % (Auto) 84.2 H Lymph % (Auto) 10.0 L Butts % (Auto) 3.1 Eos % (Auto) 0.0 Baso % (Auto) 0.3 Lymph # (Auto) 1.43 Butts # (Auto) 0.5 Eos # (Auto) 0.0 Baso # (Auto) 0.0 Abs Immat Gran (auto) 0.34 H Absolute Neuts (auto) 12.1 H Absolute Nucleated RBC 0.0 Nucleated RBC % 0.0 Sodium 132 L Potassium 3.8 Chloride 102 Carbon Dioxide 23 Anion Gap 7 L BUN 21 H Creatinine 0.80 Estim Creat Clear Calc 44 Estimated GFR > 60 Glucose 163 H Calcium 8.8 Procalcitonin 0.1 Preliminary micro results at discharge 07/19/23 08:04 Blood Culture - Preliminary Blood 07/19/23 08:13 Blood Culture - Preliminary Blood Discharge Plan Discharge Attending physician on discharge: Ansley Cárdenas Discharging Clinician: Ansley Cárdenas Patient Disposition: Home Health Service Activity: january shower Diet: heart healthy Discharge Instructions: Per Care Coordination: [facility] has been arranged to follow at discharge. [facility] will contact you prior to their first visit. [facility] can be contacted at [phone]. Nursing please fax discharge paperwork to [phone]. Patient Instructions: Antibiotic Form Stand Alone Forms: General Discharge Information Follow-up/Referrals: Nishant Navarro, [Primary Care Provider] - 2 Weeks Discharge Medications: New Zyrtec 10 mg capsule 10 mg PO DAILY PRN (Reason: allergy symptoms) Qty: 30 0RF acyclovir 800 mg tablet See Rx Instructions .ROUTE .COMPLEX Qty: 90 0RF Rx Instructions: 800 mg 5 times daily until all lesions have crusted amoxicillin-pot clavulanate 875-125 mg tablet 1 tablet PO Q12H 2 Days Qty: 4 0RF calamine-zinc oxide Lotion 1 applic topical 4-6XD PRN (Reason: skin irritation) Qty: 177 0RF Continued prednisone 20 mg tablet 20 mg PO BID pantoprazole [Protonix] 40 mg tablet,delayed release (DR/EC) 40 mg PO QAM levothyroxine 75 mcg capsule 75 mcg PO DAILY Date of admission: 07/20/23 09:40 Primary Care Provider: Nishant Navarro Admitting Provider: Ansley Cárdenas Attending physician on admission: Ansley Cárdenas Condition: Stable
[2023-07-23] MEDS: ALTEPLASE 2 MG VIAL (CATHFLO) IV PUSH (17:43)
--- NOTE | 2023-07-23 19:29 | PC.NURSE ---
Cath King given at 1743. Port function restored after first attempt
[2023-07-23] MEDS: HEPARIN SODIUM LOCK FLUSH 500 UNITS/5 ML SYRINGE IV PUSH (19:37)
== END 2023-07-23 19:55 | disposition home health service (06) | DRG 596 ==
LOC: ANHED 07:45 → ANH2MED 11:01
PROVIDERS: Student in an Organized Health Care Education/Training Program; Admitting Provider General Practice; Emergency Provider Emergency Medicine; PCP Family Medicine; Visit Provider General Practice
DX: B02.9 Zoster without complications (principal); N39.0 Urinary tract infection, site not specified; C79.9 Secondary malignant neoplasm of unspecified site; I10 Essential (primary) hypertension; E78.5 Hyperlipidemia, unspecified; E03.9 Hypothyroidism, unspecified; R53.1 Weakness; W19.XXXA Unspecified fall, initial encounter; Z85.820 Personal history of malignant melanoma of skin; Z85.3 Personal history of malignant neoplasm of breast
CPT/HCPCS: 36415; 36591; 70450; 71046; 80048; 80053; 83605; 83735; 84145; 84439; 84443; 84480; 84484; 85025; 87040; 96361; 96365; 96372; 96375; 97110; 97116; 97161; 97165; 99285; A9270; G0378; J0133; J0696; J1642; J1650; J2997; J7030; J7060; J7512

== ENCOUNTER 2023-07-25 08:36 | Outpatient (CLI) | payer MEDICARE, SELFPAY ==
[2023-07-25 09:20] LABS: Basophils Absolute Auto 0.1 K/mm3 (0.0-0.1); Basophils Percent Auto 0.3 % (0.2-1.2); Hematocrit 37.1 % (37.0-47.0); Hemoglobin 11.7 g/dL (12.0-15.0); Immature Granulocyte Absolute 0.78 K/mm3 (0.00-0.031); Lymphocytes Absolute Auto 2.02 K/mm3 (0.9-3.2); Mean Corpuscular HGB Conc 31.5 g/dl (32-36); Mean Corpuscular Hemoglobin 29.3 pg (26-34); Mean Platelet Volume 9.2 fl (7.4-10.4); Monocytes Absolute Auto 0.9 K/mm3 (0.1-0.6); Monocytes Percent Auto 5.6 % (2.6-8.5); Neutrophils Absolute Auto 11.8 K/mm3 (1.3-6.7); Neutrophils Percent Auto 76.1 % (45.5-73.1); Nucleated Red Blood Cells Perc 0.1 % (0.0-0.2); Platelet Count Result 235 k/mm3 (150-375); Red Blood Count 3.99 M/mm3 (4.2-5.4); White Blood Count 15.5 K/mm3 (4.5-10.0)
== END 2023-07-25 08:37 | disposition home or self-care (01) ==
PROVIDERS: PCP Family Medicine; Visit Provider General Practice
DX: N39.0 Urinary tract infection, site not specified (principal)
CPT/HCPCS: 36415; 80053; 85025; 99212; G0463

== ENCOUNTER 2023-07-26 12:11 | Emergency (ER) | payer MEDICARE, SELFPAY ==
[2023-07-26 12:19] VITALS: BP 124/74; PULSE 101; RESP 16; TEMP 35.7; O2SAT 98
--- NOTE | 2023-07-26 12:39 | ED.GENADULT ---
HPI - General Adult General Chief complaint: Back Pain/Injury Stated complaint: Lower Back Pain,Lt Arm Pain,Rash Time Seen by Provider: 07/26/23 12:39 Source: patient Mode of arrival: ambulatory Limitations: no limitations History of Present Illness HPI narrative: 83 yo F presents with son with c/o pain related to shingles. Was hospitalized for shingles and UTI. given IV antibiotics and acyclovir. Was sent home on PO acyclovir. Pt's pain getting progressively worse. Tylenol and ibuprofen no helping. pt has pain to L axilla and shoulder where she does not have shingles rash. Pt sitting in wheelchair grimacing with pain. Has tried to get a hold of PCP for pain medication. Let several message and son says no one has called back. All systems reviewed and negative except as noted above. Related Data Home Medications Medication Instructions Recorded Confirmed levothyroxine 75 mcg capsule 88 mcg PO DAILY 07/18/23 07/26/23 pantoprazole 40 mg tablet,delayed 40 mg PO QAM 07/18/23 07/26/23 release (Protonix) Allergies Allergy/AdvReac Type Severity Reaction Status Date / Time No Known Allergies Allergy Verified 07/26/23 12:14 Review of Systems Review of Systems: CONSTITUTIONAL: Denies fever, chills, or sweats. EYES: Denies visual changes, redness, or discharge. ENT: Denies rhinorrhea, congestion, sore throat, or otalgia. CARDIOVASCULAR: Denies chest pain, palpitations, or edema. RESPIRATORY: Denies cough or dyspnea. GASTROINTESTINAL: Denies abdominal pain, nausea, vomiting, or diarrhea. GENITOURINARY: Denies dysuria or hematuria. SKIN: Reports Painful shingles rash. MUSCULOSKELETAL: Denies back pain, joint pain, or myalgia. NEUROLOGIC: Denies headache, numbness, or weakness. PSYCHIATRIC: Denies anxiety or depression. All other systems reviewed are negative, except as documented in HPI. [facility] Past Medical History Medical History (Updated 07/26/23 @ 12:51 by Tasha Senior NP) Breast cancer Essential (primary) hypertension Hyperlipidemia LDL goal <130 Hypothyroidism, unspecified Lung cancer Malignant melanoma of scalp Surgical History Surgical History (Updated 07/20/23 @ 02:14 by Jennifer Quiñonez APRN) History of breast surgery resection of nipple/mass r/t cancer History of surgery of head resection - part of scalp Family History Family History Father Family history of liver disease, Onset Age: 55 Mother Family history of malignant neoplasm, Onset Age: 44 Other Family history of alcoholism Social History Social History (Updated 07/20/23 @ 02:14 by Jennifer Quiñonez, PERSONAL LINES UNDERWRITER) Social History: Caffeine-coffee daily. Currently lives at home with her . Surrogate decision maker Ollie leslie, spouse. May also call Rober leslie, son. Code status: DNR. Years smoked: 7 Smoking status: Former smoker Tobacco type: cigarettes Second hand tobacco smoke exposure: No Smoking end date: 09/04/94 Alcohol intake: never Substance use: never Lack of Transportation: No Lack of Food: Never True Current Housing: I Have Housing Concerned About Future Housing: No Difficulty Paying Gas/Electric Bills: No Difficulty Paying for Meds: No Currently Unemployed: No Education: Grade School Difficulty w/ Childcare or Family Care: No Spiritual care concerns: No Comments At time of signature, agree with nursing past medical, surgical, social and family history. There is no relevant family history pertinent to the presenting complaint. Exam Narrative: GENERAL: This is a well-nourished, well-developed patient, in no apparent distress. HEAD: normocephalic, atraumatic. EYES: PERRL. Sclera clear/white. Vision is grossly intact. EARS: External ears normal, auditory canals clear and without drainage, TMs normal without perforation. Hearing grossly intact. NOSE: External nose normal with no obvious nasal discharge
== END 2023-07-26 12:52 | disposition home or self-care (01) ==
PROVIDERS: Emergency Provider Nurse Practitioner Family; PCP Family Medicine
DX: M54.50 Low back pain, unspecified (principal); B02.29 Other postherpetic nervous system involvement; Z87.891 Personal history of nicotine dependence; I10 Essential (primary) hypertension; E78.5 Hyperlipidemia, unspecified; E03.9 Hypothyroidism, unspecified; Z85.3 Personal history of malignant neoplasm of breast; Z85.828 Personal history of other malignant neoplasm of skin; Z85.118 Personal history of other malignant neoplasm of bronchus and lung
CPT/HCPCS: 99213; G0463

== ENCOUNTER 2023-08-01 14:46 | Outpatient (RCR) | payer MEDICARE, SELFPAY ==
[2023-06-15 09:48] LABS: Alanine Aminotransferase 96 U/L (6-35); Albumin Level 3.6 g/dL (3.5-5.1); Alkaline Phosphatase 161 U/L (38-126); Anion Gap 6 mmol/L (8-16); Aspartate Amino Transferase 31 U/L (14-36); Bilirubin,Total 0.8 mg/dL (0.2-1.3); Blood Urea Nitrogen 20 mg/dL (7-17); Carbon Dioxide 23 mmol/L (22-30); Chloride 103 mmol/L (98-107); Estimated Glomerular Filt Rate 60; Glucose 104 mg/dL (65-110); Potassium 4.3 mmol/L (3.4-5.0); Sodium 132 mmol/L (137-145)
[2023-06-22 09:37] LABS: Alanine Aminotransferase 38 U/L (6-35); Albumin Level 3.4 g/dL (3.5-5.1); Alkaline Phosphatase 101 U/L (38-126); Anion Gap 5 mmol/L (8-16); Aspartate Amino Transferase 24 U/L (14-36); Bilirubin,Total 0.7 mg/dL (0.2-1.3); Blood Urea Nitrogen 17 mg/dL (7-17); Calcium 8.6 mg/dL (8.4-10.2); Carbon Dioxide 22 mmol/L (22-30); Chloride 105 mmol/L (98-107); Estimated Glomerular Filt Rate > 60; Glucose 96 mg/dL (65-110); Sodium 132 mmol/L (137-145)
[2023-07-18 15:27] LABS: Alanine Aminotransferase 104 U/L (6-35); Albumin Level 3.9 g/dL (3.5-5.1); Alkaline Phosphatase 108 U/L (38-126); Anion Gap 10 mmol/L (8-16); Aspartate Amino Transferase 40 U/L (14-36); Blood Urea Nitrogen 18 mg/dL (7-17); Calcium 8.7 mg/dL (8.4-10.2); Carbon Dioxide 22 mmol/L (22-30); Chloride 98 mmol/L (98-107); Estimated Glomerular Filt Rate > 60; Glucose 155 mg/dL (65-110); Sodium 130 mmol/L (137-145)
[2023-07-25 09:34] LABS: Alanine Aminotransferase 58 U/L (6-35); Albumin Level 3.5 g/dL (3.5-5.1); Alkaline Phosphatase 87 U/L (38-126); Anion Gap 6 mmol/L (8-16); Aspartate Amino Transferase 27 U/L (14-36); Bilirubin,Total 0.6 mg/dL (0.2-1.3); Blood Urea Nitrogen 22 mg/dL (7-17); Calcium 8.8 mg/dL (8.4-10.2); Carbon Dioxide 24 mmol/L (22-30); Chloride 102 mmol/L (98-107); Estimated Glomerular Filt Rate 60; Glucose 97 mg/dL (65-110); Potassium 4.3 mmol/L (3.4-5.0); Sodium 132 mmol/L (137-145)
[2023-08-01 15:25] LABS: Alanine Aminotransferase 40 U/L (6-35); Albumin Level 3.4 g/dL (3.5-5.1); Alkaline Phosphatase 62 U/L (38-126); Anion Gap 5 mmol/L (8-16); Aspartate Amino Transferase 28 U/L (14-36); Bilirubin,Total 0.5 mg/dL (0.2-1.3); Blood Urea Nitrogen 24 mg/dL (7-17); Calcium 8.7 mg/dL (8.4-10.2); Carbon Dioxide 26 mmol/L (22-30); Chloride 102 mmol/L (98-107); Estimated Glomerular Filt Rate > 60; Glucose 114 mg/dL (65-110); Potassium 4.1 mmol/L (3.4-5.0); Sodium 133 mmol/L (137-145)
== END 2023-09-13 23:59 | disposition home or self-care (01) ==
LOC: ANHLAB 14:46
PROVIDERS: PCP Family Medicine
DX: C43.4 Malignant melanoma of scalp and neck (principal); C78.02 Secondary malignant neoplasm of left lung; C79.31 Secondary malignant neoplasm of brain; R79.89 Other specified abnormal findings of blood chemistry
CPT/HCPCS: 36415; 36591; 36592; 80053; 85025; 99212; G0463

== ENCOUNTER 2023-08-03 06:45 | Inpatient (IN) | payer MEDICARE, SELFPAY ==
[2023-08-03] VITALS (17 sets, daily range): BP systolic 84–167; BP diastolic 36–88; PULSE 59–126; RESP 12–18; TEMP 35.8–36.7; O2SAT 97–100; BMI 10.0; BMI 27.5
--- NOTE | ~2023-08-03 | CT_ITS ---
CT head without contrast Indication: Status post fall COMPARISON: 07/19/2023 Technique: Serial scans were obtained through the brain without the administration of contrast. Dose reduction technique was used on this scan by utilizing automated exposure control and iterative recon struction technique. The dose-length product (DLP) was 605.33 mGy-cm. Findings: There is no evidence of intracranial hemorrhage, mass lesion, or acute infarct. The ventri cles and subarachnoid spaces are dilated, consistent with mild to moderate atrophy. Low attenuation regions are seen within the periventricular white matter bilaterally, likely representing changes fro m chronic microvascular ischemic disease. There is no evidence of edema, mass effect or midline shif t. The visualized paranasal sinuses and mastoid air cells are clear. Impression: No intracranial hemorrhage, mass, or acute infarct. Atrophy and chronic white matter changes, as above. Reviewed, dictated and finalized at location M. WALS SPECIALIST Impression: No intracranial hemorrhage, mass, or acute infarct. Atrophy and chronic white matter changes, as above.
--- NOTE | ~2023-08-03 | XR_ITS ---
Clinical Indication: Weakness, altered mental status AP and lateral views of the chest: Comparison: 07/19/2023 Findings: Stable right-sided Mediport. The lungs are clear, without evidence of focal consolidation o r pleural effusion. Cardiomediastinal silhouette is within normal limits. Bones and soft tissues are unremarkable. Impression: Right-sided Mediport. Clear lungs. Reviewed, dictated and finalized at location M. ERCIAL REPORTER Impression: Right-sided Mediport. Clear lungs.
--- NOTE | ~2023-08-03 | CT_ITS ---
EXAMINATION: CT brain wo con DATE: 08/08/2023 17:56 INDICATION: fall . TECHNIQUE: Computed tomography (CT) of the head was performed without intravenous contrast. The mA wa s adjusted according to patient size. Iterative reconstruction technique was employed. The dose-lengt h product was 605.33 mGy-cm. COMPARISON: 08/03/2023. FINDINGS: No acute intracranial hemorrhage or extra-axial fluid collection. No hydrocephalus, mass, or herniation. No acute ischemic infarct. Unremarkable dural venous sinus attenuation. No acute osseous abnormality. The aerated spaces are clear. Moderate atrophy and chronic white matter change. Atherosclerotic intracranial calcification. Bilater al lens replacements. IMPRESSION: No acute intracranial process. Reviewed, dictated and finalized at location K. N RESOURCES DIRECTOR
--- NOTE | ~2023-08-03 | CT_ITS ---
Noncontrast CT scan of the cervical spine Technique: Multiple contiguous axial [address] images of the cervical spine were obtained and rec onstructed in 2D sagittal and coronal planes on the acquisition scanner. Dose reduction technique was used on this scan by utilizing automated exposure control, adjustment of the mA and/or kV according to patient size. The dose-length product (DLP) was 322.44 mGy-cm. Clinical History: Pain Findings: No fracture identified. There is minimal grade 1 anterolisthesis of C4 over C5, and of C3 o erwin C4. There is advanced degenerative disc narrowing at C5-C6 and C6-C7. There is degenerative paredes e at the articulation of the odontoid process with the anterior arch of C1. There is left neural fora elijah narrowing at C3-C4 with prominent left facet arthropathy. There are additional scattered facet joint degenerative changes in the cervical spine. There is bilateral neural foraminal narrowing at C5 -C6, and right neural foraminal narrowing at C6-C7. No prevertebral soft tissue swelling. Impression: No fracture. Minimal grade 1 anterolisthesis of C3 over C4, and of C4 over C5. Mild to moderate degenerative spondylosis, as above. Reviewed, dictated and finalized at location . ERY TECHNICIAN Impression: No fracture. Minimal grade 1 anterolisthesis of C3 over C4, and of C4 over C5. Mild to moderate degenerative spondylosis, as above.
--- NOTE | 2023-08-03 06:58 | ECG_ITS ---
Measurements Intervals [place] Rate: 69 P: 52 ME: 174 QRS: 18 QRSD: 77 T: 29 QT: 359 QTc: 385 Interpretive Statements SINUS RHYTHM BASELINE ARTIFACT- V6 NORMAL ECG NO PREVIOUS ECG AVAILABLE FOR COMPARISON Electronically Signed On 08-03-2023 7:51:05 PATTERNMAKER HELPER by Natanael Riddle D.O.
--- NOTE | 2023-08-03 07:35 | ED.FALL ---
HPI - Fall General Chief Complaint: Fall Stated Complaint: glf, weakness Time Seen by Provider: 08/03/23 07:33 Source: family and EMS Mode of arrival: EMS Limitations: clinical condition History of Present Illness HPI Narrative: 83 YEARS OLD WHITE FEMALE CAME FROM HOME WITH GENERAL WEAKNESS AND MULTIPLE FALLS LATELY. HER SON IS TELLING ME THAT SHE HAD A RECENT DIAGNOSIS OF SHINGLES, STARTED ON GABAPENTIN, INCREASE THE THROUGH YOUR FAMILY PHYSICIAN YESTERDAY +AMITRIPTYLINE WAS ADDED AT THE TIME. HISTORY OF CONSTIPATION, STARTED ON MIRALAX SUBSEQUENTLY DEVELOPED MASSIVE DIARRHEA. HISTORY OF MULTIPLE URINARY TRACT INFECTION. PATIENT DID NOT EAT OR DRINK OR TAKING HER MEDICATIONS THIS MORNING. Related Data Home Medications Medication Instructions Recorded Confirmed levothyroxine 75 mcg capsule 88 mcg PO DAILY 07/18/23 08/02/23 pantoprazole 40 mg tablet,delayed 40 mg PO QAM 07/18/23 08/02/23 release (Protonix) prednisone 20 mg tablet 40 mg PO DAILY 08/02/23 08/02/23 Allergies Allergy/AdvReac Type Severity Reaction Status Date / Time No Known Allergies Allergy Verified 08/02/23 14:03 Review of Systems Review of Systems: All systems reviewed & are unremarkable except as noted in HPI and below PMFSH Past Medical History Medical History Breast cancer Essential (primary) hypertension Hyperlipidemia LDL goal <130 Hypothyroidism, unspecified Lung cancer Malignant melanoma of scalp Surgical History Surgical History History of breast surgery resection of nipple/mass r/t cancer History of surgery of head resection - part of scalp Family History Family History Father Family history of liver disease, Onset Age: 55 Mother Family history of malignant neoplasm, Onset Age: 44 Other Family history of alcoholism Social History Social History Social History: Caffeine-coffee daily. Currently lives at home with her . Surrogate decision maker Ollie leslie, spouse. May also call Rober leslie, son. Code status: DNR. Years smoked: 7 Smoking status: Former smoker Tobacco type: cigarettes Second hand tobacco smoke exposure: No Smoking end date: 09/04/94 Alcohol intake: never Substance use: never Lack of Transportation: No Lack of Food: Never True Current Housing: I Have Housing Concerned About Future Housing: No Difficulty Paying Gas/Electric Bills: No Difficulty Paying for Meds: No Currently Unemployed: No Education: Grade School Difficulty w/ Childcare or Family Care: No Spiritual care concerns: No Exam Narrative: CONSTITUTIONAL: DENIES FEVER, CHILLS, OR SWEATS. EYES: DENIES VISUAL CHANGES, REDNESS, OR DISCHARGE. ENT: DENIES RHINORRHEA, CONGESTION, SORE THROAT, OR OTALGIA. CARDIOVASCULAR: DENIES CHEST PAIN, PALPITATIONS, OR EDEMA. RESPIRATORY: DENIES COUGH OR DYSPNEA. GASTROINTESTINAL: DENIES ABDOMINAL PAIN, NAUSEA, VOMITING, OR DIARRHEA. GENITOURINARY: DENIES DYSURIA OR HEMATURIA. SKIN: LEFT CHEST AND UPPER ABDOMEN SHINGLES RASH MUSCULOSKELETAL: DENIES BACK PAIN, JOINT PAIN, OR MYALGIA. NEUROLOGIC: DENIES HEADACHE, NUMBNESS, OR WEAKNESS. PSYCHIATRIC: DENIES ANXIETY OR DEPRESSION. Course Reevaluation(s) Reevaluation #1: NO NEW CHANGES COMPARED TO ON ARRIVAL TO THE Date: 08/03/23 Time: 10:50 Vital Signs Vital signs: Vital Signs Temperature 35.8 C L 08/03/23 06:46 Pulse Rate 92 08/03/23 06:46 Respiratory Rate 12 08/03/23 06:46 Blood Pressure 142/86 H 08/03/23 06:46 Pulse Oximetry 98 08/03/23 06:46 Oxygen Delivery Room Air 08/03/23 06:46 Temperature 35.8 C L 08/03/23 06:46 Pulse Rate 92 08/03/23 06:46 Respiratory Rate 12 08/03/23 06:46 Blood Pressure 142/86 H 08/03/23 06:46 Pulse Oximetry 98
[2023-08-03 07:36] LABS: Appearance Urine Clear (Clear); Bilirubin Urine Negative (Negative); Blood Urine Negative (Negative); Color Urine Yellow (Yellow); Glucose Urine UA Negative (Negative); Ketones Urine Negative (Negative); Leukocyte Esterase Ur Negative LEU/UL (Negative); Nitrate Urine Negative (Negative); Protein Urine Negative (Negative); Specific Grav Ur 1.007 (1.001-1.035); Urobilinogen Urine 0.2 mg/dL (<2.0)
[2023-08-03 07:44] LABS: Alanine Aminotransferase 50 U/L (6-35); Albumin Level 4.4 g/dL (3.5-5.1); Alkaline Phosphatase 89 U/L (38-126); Anion Gap 10 mmol/L (8-16); Aspartate Amino Transferase 27 U/L (14-36); Bilirubin,Total 0.9 mg/dL (0.2-1.3); Blood Urea Nitrogen 17 mg/dL (7-17); Calcium 10.7 mg/dL (8.4-10.2); Carbon Dioxide 27 mmol/L (22-30); Chloride 101 mmol/L (98-107); Estimated CRCL calculation 34 ml/min; Estimated Glomerular Filt Rate 53; Glucose 100 mg/dL (65-110); Sodium 138 mmol/L (137-145)
[2023-08-03 07:47] LABS: Basophils Percent Auto 0.2 % (0.2-1.2); Hematocrit 42.5 % (37.0-47.0); Hemoglobin 13.8 g/dL (12.0-15.0); Immature Granulocyte Absolute 0.21 K/mm3 (0.00-0.031); Immature Granulocyte Percent A 1.5 % (0-0.5); Lymphocytes Absolute Auto 1.78 K/mm3 (0.9-3.2); Lymphocytes Percent Auto 12.5 % (18.3-44.2); Mean Corpuscular HGB Conc 32.5 g/dl (32-36); Mean Corpuscular Volume 92.4 fl (80-100); Mean Platelet Volume 9.2 fl (7.4-10.4); Monocytes Absolute Auto 0.8 K/mm3 (0.1-0.6); Monocytes Percent Auto 5.3 % (2.6-8.5); Neutrophils Absolute Auto 11.4 K/mm3 (1.3-6.7); Neutrophils Percent Auto 80.5 % (45.5-73.1); Platelet Count Result 280 k/mm3 (150-375); Red Cell Distribution Width 16.1 % (11.5-14.5); White Blood Count 14.2 K/mm3 (4.5-10.0)
[2023-08-03 07:47] LABS: Add Urine Microscopic? NO
--- NOTE | 2023-08-03 10:51 | PC.NURSE ---
Heart Healthy lunch tray ordered
--- NOTE | 2023-08-03 13:13 | PCCCNOTE ---
CC contacted for referral to [facility], Cari at [facility] met with the family in the ED. Preference form signed.
--- NOTE | 2023-08-03 13:43 | PC.NURSE ---
PT in room assisting patient to stand, PT reports she got lightheaded and stated she felt like she was going to pass out. PT assisted patient back into bed. RN entered room to assess. made aware.
[2023-08-03] MEDS: SODIUM CHLORIDE 0.9% IV 1,000 ML 999 ML IV CONT (13:53)
--- NOTE | 2023-08-03 13:57 | PC.NURSE ---
Attempted orthostatic blood pressures per EDP order. Patient reported feeling dizzy when raised to sitting position from supine. Pt stated feeling weak and this RN did not feel safe attempting to get patient to stand. MD made aware and adjusted orders.
--- NOTE | 2023-08-03 14:55 | ADMGEN ---
This patient, Lanette Ceballos, was admitted to 2 Medical Room 240-01. Patient/family oriented to hospital policies and general routines including ID bracelet, bed and alarms, visiting hours, pain management, procedures, bathroom and other care routines, personal items, smoking policy, room service/diet, and visiting hours. Information on how to activate the Rapid Response Team has been discussed. Patient/Family are encouraged to report perceived risks to care and to ask questions if they do not understand what they are told or what they should do.
--- NOTE | 2023-08-03 15:36 | PM.IMHP ---
H&P: HPI History of Present Illness Date/Time: 08/03/23 15:36 Chief Complaint: Weakness Narrative: 83 y/o F presents here with weakness and chest wall pain with PMH of HTN, hypothyroidism, metastatic melanoma, breast and lunc cx, and HLD. Patient originally presented on 07/16 for left-sided back pain that had worsened with physical movements.?+UC from this visit. Pain attributed to possible PNA and discharged home on azithromycin.? Saw PCP for ER follow-up on 07/18, due to incomplete resolution of back pain, Flexeril was initiated by her PCP.? On 07/19 patient returned to the ED after ground level fall that morning around 3:00 a.m and generalized weakness.? Patient reports that while she was walking it felt like her legs gave out. Has not previously had weakness in her lower extremities and has not required an assistive device. Noted that patient had erythematous rash following dermatome across left ribcage and was diagnosed with Shingles. Patient was admitted and started on IV acyclovir, weakness attributed to recent UTI. She was discharged on the with Acyclovir and Augmentin.Patient returned to an [facility] on 08/02 with complaints of post herpetic neuralgia and some dysuria/ hematuria. She was discharged with amitriptyline and her gabapentin was increased to 600 mg t.i.d. Since increase, patient has had 2 falls - one at 12:30 last night and one at 05:30 this morning, both ground level without loss of consciousness or complaint of injury. Son reports that these falls were typically occurring when she was getting up to go to use the restroom. Prior to admission on the 07/19 she was walking unassisted. Now using walker and continuing to have falls. Son reports that he assists to make sure that she is eating enough daily, reports some poor hydration. Patient was then admitted. PT was at bedside evaluating patient when she had a syncopal episode. Blood pressure was initially 60/palp, shortly thereafter hypotension resolved. she denies chest pain, shortness of breath, palpitations. No neurological deficits endorse or observed by family member. Patient's only complaint at this time is post herpetic pain to her left chest wall, increased somnolence, and loose stools. Review of Systems Review of Systems: All systems reviewed & are unremarkable except as noted in HPI and below PMFSH Past Medical History Medical History (Updated 08/03/23 @ 17:35 by Jennifer Quiñonez APRN) Breast cancer Essential (primary) hypertension Hyperlipidemia LDL goal <130 Hypothyroidism, unspecified Lung cancer Malignant melanoma of scalp Shingles Surgical History Surgical History History of breast surgery resection of nipple/mass r/t cancer History of surgery of head resection - part of scalp Family History Family History Father Family history of liver disease, Onset Age: 55 Mother Family history of malignant neoplasm, Onset Age: 44 Other Family history of alcoholism Social History Social History Social History: Caffeine-coffee daily. Currently lives at home with her . Surrogate decision maker Ollie leslie, spouse. May also call Rober leslie, son. Code status: DNR. Years smoked: 7 Smoking status: Former smoker Second hand tobacco smoke exposure: No Alcohol intake: never Substance use: never Lack of Transportation: No Lack of Food: Never True Current Housing: I Have Housing Concerned About Future Housing: No Difficulty Paying Gas/Electric Bills: No Difficulty Paying for Meds: No Currently Unemployed: No Education: Grade School Difficulty w/ Childcare or Family Care: No Spiritual care concerns: No Meds Home Medications and Allergies Home Medications Medication Instructions Recorded Confirmed Type lev
[2023-08-03 18:26] LABS: Toxigenic C. Diff NEGATIVE (NEGATIVE)
[2023-08-03] MEDS: oxyCODONE/ACETAMINOPHEN (*CRX) 10-325 MG TABLET 1 TAB PO ×2 (18:31→23:58)
[2023-08-03] MEDS: SODIUM CHLORIDE 0.9% IV 1,000 ML 100 ML IV CONT (18:31)
[2023-08-03] MEDS: ACYCLOVIR 400 MG TABLET 800 MG PO ×2 (18:32→20:10)
[2023-08-03 21:32] LABS: Lactic Acid Reflex 1.6 mmol/L (0.7-2.0)
[2023-08-03] MEDS: CAPSAICIN 0.025% CREAM 60 GM TUBE 1 APPLIC TOPICAL (23:40)
--- NOTE | 2023-08-04 | ECHO_ITS ---
Patient Info Name: Lanette Ceballos Age: 83 years : 1940 Gender: Female Ht: 65 in Wt: 165 lbs BSA: 1.87 m2 HR: 71 bpm BP: 117 / 60 mmHg Heart Rhythm: Sinus Rhythm Technical Quality: Fair Exam Date: 08/04/2023 10:07 AM Exam Location: Echo Lab Patient Status: Inpatient Admit Date: 08/04/2023 Staff Ordering Physician: Kenia Candelario APRN Corrections Sergeant: Dana Bridges RDCS Attending Provider: Heather Butler MD Referring Physician: Andree SONI; Exam Type: CA echo doppler color flow Study Info Indications R55 - Syncope and collapse Complete two-dimensional, color flow and Doppler transthoracic echocardiogram is performed. Summary 1. Complete two-dimensional, color flow and Doppler transthoracic echocardiogram is performed. 2. Left ventricular chamber dimension is normal. 3. Left ventricular systolic function is normal, estimated at 65-70%. 4. The left ventricular diastolic function is grade I diastolic dysfunction. 5. E/e 9 is minimally elevated. 6. No pulmonary hypertension, estimated pulmonary arterial systolic pressure is 26 mmHg. Left Ventricle E/e 9 is minimally elevated. Left ventricular chamber dimension is normal. Left ventricular systolic function is normal, estimated at 65-70%. The left ventricular diastolic function is grade I diastolic dysfunction. Right Ventricle Right ventricular chamber dimension is normal. Right ventricular systolic function is normal. Left Atria Left atrial chamber dimension is normal. Right Atria Right atrial chamber dimension is normal. Aortic Valve The aortic valve is trileaflet. There is no aortic valve stenosis. There is no aortic valve regurgitation. Pulmonic Valve There is no pulmonic regurgitation. Mitral Valve There is no mitral valve stenosis. There is no mitral valve regurgitation. Tricuspid Valve There is no tricuspid valve regurgitation. No pulmonary hypertension, estimated pulmonary arterial systolic pressure is 26 mmHg. Pericardium/Pleural There is no pericardial effusion. Inferior Vena Cava Normal inferior vena cava with >50% collapse upon inspiration consistent with normal right atrial pressure, 5 mmHg. Aorta The aortic root size at the sinus of Valsalva is normal. Left Ventricular Outflow Tract Name Value Normal LVOT 2D LVOT Diameter 2.0 cm LVOT Doppler LVOT Peak Gradient 2 mmHg LVOT Mean Gradient 1 mmHg LVOT VTI 10 cm LVOT VTI/AV VTI Ratio 0.6 LVOT Stroke Volume 31 ml LVOT CO 2.7 l/min LVOT CI 1.4 l/min/m2 Pulmonic Valve Name Value Normal RVOT Doppler RVOT Peak Gradient 2 mmHg PV Doppler PV Peak Gradient 4 mmHg Mitral
[2023-08-04 05:04] VITALS: BP 117/60; PULSE 71; RESP 18; TEMP 36.6; O2SAT 96
[2023-08-04] MEDS: oxyCODONE/ACETAMINOPHEN (*CRX) 10-325 MG TABLET 1 TAB PO ×3 (05:39→20:32)
[2023-08-04] MEDS: LEVOTHYROXINE SODIUM 88 MCG TABLET PO (05:39)
[2023-08-04] MEDS: CAPSAICIN 0.025% CREAM 60 GM TUBE 1 APPLIC TOPICAL ×3 (05:42→18:01)
[2023-08-04 06:07] LABS: Basophils Percent Auto 0.2 % (0.2-1.2); Hematocrit 33.8 % (37.0-47.0); Hemoglobin 10.5 g/dL (12.0-15.0); Immature Granulocyte Absolute 0.09 K/mm3 (0.00-0.031); Immature Granulocyte Percent A 0.9 % (0-0.5); Lymphocytes Absolute Auto 2.64 K/mm3 (0.9-3.2); Lymphocytes Percent Auto 25.3 % (18.3-44.2); Mean Corpuscular HGB Conc 31.1 g/dl (32-36); Mean Corpuscular Hemoglobin 30.2 pg (26-34); Mean Corpuscular Volume 97.1 fl (80-100); Monocytes Absolute Auto 0.5 K/mm3 (0.1-0.6); Monocytes Percent Auto 5.2 % (2.6-8.5); Neutrophils Absolute Auto 7.1 K/mm3 (1.3-6.7); Neutrophils Percent Auto 68.4 % (45.5-73.1); Nucleated Red Blood Cells Perc 0.2 % (0.0-0.2); Platelet Count Result 203 k/mm3 (150-375); Red Blood Count 3.48 M/mm3 (4.2-5.4); Red Cell Distribution Width 16.6 % (11.5-14.5); White Blood Count 10.4 K/mm3 (4.5-10.0)
[2023-08-04 06:24] LABS: Alanine Aminotransferase 34 U/L (6-35); Albumin Level 3.1 g/dL (3.5-5.1); Alkaline Phosphatase 61 U/L (38-126); Anion Gap 5 mmol/L (8-16); Aspartate Amino Transferase 22 U/L (14-36); Bilirubin,Total 0.7 mg/dL (0.2-1.3); Blood Urea Nitrogen 18 mg/dL (7-17); Calcium 8.1 mg/dL (8.4-10.2); Carbon Dioxide 23 mmol/L (22-30); Chloride 106 mmol/L (98-107); Estimated CRCL calculation 38 ml/min; Estimated Glomerular Filt Rate 53; Glucose 95 mg/dL (65-110); Potassium 3.6 mmol/L (3.4-5.0); Sodium 134 mmol/L (137-145)
[2023-08-04 06:50] LABS: Free T4 Free Thyroxine 1.24 ng/mL (0.78-2.19)
--- NOTE | 2023-08-04 07:26 | P.PNIM_ITS ---
Progress Note: A&P Assessment and Plan (1) Weakness: Code(s): R53.1 - Weakness Status: Acute Assessment and Plan: 08/03/23: * suspect weakness secondary to recent shingles infection given ongoing/intermittent weakness for the past month. however will rule out polypharmacy and will hold gabapentin, Zyrtec, and amitriptyline for 24 hours to assess if somnolence resolves. Consider alternative medication for post herpetic neuralgia such as Lyrica or monotherapy with increased dose of gabapentin. Due to mild tachycardia/hypotension with reported loose stools will also rehydrate, monitor I&Os, orthostatics daily, and obtain blood cultures. Adding c.diff given recent admission/atb administration. Hx of hypothyroidism, last TSH 4.57 on 07/20 and son reported compliance with medications. Low suspicion for alteration in thyroid levels, but given continued weakness and diarrhea will add TSH/T3/T4 to AM labs. Continue PT/OT evaluation and treatment. Care coordination consulted and plan for discharge to [facility]. WBC mildly elevated, likely due to daily oral prednisone. Continue to monitor labs. 08/04/23: * weakness most likely secondary to polypharmacy * Gabapentin, Zyrtec, amitriptyline on hold * PT and OT ordered (2) At risk for polypharmacy: Code(s): Z91.89 - Other specified personal risk factors, not elsewhere classified Status: Acute Assessment and Plan: 08/04/23: * see above (3) Post herpetic neuralgia: Code(s): B02.29 - Other postherpetic nervous system involvement Status: Acute Assessment and Plan: 08/03/23: * Holding gabapentin and amitriptyline due to suspected polypharmacy. Will assess for resolution of somnolence. Consider resuming gabapentin as monotherapy or alternative medications such as Lyrica. Rash remains open, continuing acyclovir and will consult Wound Care. will hold calamine lotion, substitute for capsaicin cream to be applied scheduled. Tyl and Oxy/Tyl PO prn for pain. 08/04/23: * Continue to hold Zyrtec, gabapentin, and amitriptyline due to AMS most likely related to polypharmacy. * Continue neuro checks * Stop Acyclovir and start Valtrex * Wound care to see patient today * Continue Prednisone 40 mg daily (4) Shingles: Qualifiers: Herpes zoster complications: without complications Qualified Code(s): B02.9 - Zoster without complications Code(s): B02.9 - Zoster without complications Status: Acute Assessment and Plan: 08/04/23: * see above (5) Syncope: Code(s): R55 - Syncope and collapse Status: Acute Assessment and Plan: 08/04/23: * Patient had a syncopal episode when in the ER with systolic blood pressure 60/palp. She recovered there after. * Will check Echo today * Orthostatic blood pressures from yesterday 120/51 with map of 74 when lying down, 114/70 with map of 84 when sitting, 84/36 with map of 52 when standing. * Will repeat orthostatic blood pressures today. (6) Hypothyroidism, unspecified: Qualifiers: Hypothyroidism type: unspecified Qualified Code(s): E03.9 - Hypothyroidism, unspecified Code(s): E03.9 - Hypothyroidism, unspecified Status: Acute Assessment and Plan: 08/04/23: * TSH 16.40, up from previous read of 4.57 on 07/20/23 * Free T4 1.24, Free T3 pending * Patient currently on levothyroxine 88 mcg po daily, questioning compliance with home medication. * Patient's son reports compliance with taking medication. * Will increase dose of levothyroxine to 100
--- NOTE | 2023-08-04 07:26 | PM.IMPN ---
Progress Note: A&P Assessment and Plan (1) Weakness: Code(s): R53.1 - Weakness Status: Acute Assessment and Plan: 08/03/23: suspect weakness secondary to recent shingles infection given ongoing/intermittent weakness for the past month. however will rule out polypharmacy and will hold gabapentin, Zyrtec, and amitriptyline for 24 hours to assess if somnolence resolves. Consider alternative medication for post herpetic neuralgia such as Lyrica or monotherapy with increased dose of gabapentin. Due to mild tachycardia/hypotension with reported loose stools will also rehydrate, monitor I&Os, orthostatics daily, and obtain blood cultures. Adding c.diff given recent admission/atb administration. Hx of hypothyroidism, last TSH 4.57 on 07/20 and son reported compliance with medications. Low suspicion for alteration in thyroid levels, but given continued weakness and diarrhea will add TSH/T3/T4 to AM labs. Continue PT/OT evaluation and treatment. Care coordination consulted and plan for discharge to [facility]. WBC mildly elevated, likely due to daily oral prednisone. Continue to monitor labs. 08/04/23: weakness most likely secondary to polypharmacy Gabapentin, Zyrtec, amitriptyline on hold PT and OT ordered (2) At risk for polypharmacy: Code(s): Z91.89 - Other specified personal risk factors, not elsewhere classified Status: Acute Assessment and Plan: 08/04/23: see above (3) Post herpetic neuralgia: Code(s): B02.29 - Other postherpetic nervous system involvement Status: Acute Assessment and Plan: 08/03/23: Holding gabapentin and amitriptyline due to suspected polypharmacy. Will assess for resolution of somnolence. Consider resuming gabapentin as monotherapy or alternative medications such as Lyrica. Rash remains open, continuing acyclovir and will consult Wound Care. will hold calamine lotion, substitute for capsaicin cream to be applied scheduled. Tyl and Oxy/Tyl PO prn for pain. 08/04/23: Continue to hold Zyrtec, gabapentin, and amitriptyline due to AMS most likely related to polypharmacy. Continue neuro checks Stop Acyclovir and start Valtrex Wound care to see patient today Continue Prednisone 40 mg daily (4) Shingles: Qualifiers: Herpes zoster complications: without complications Qualified Code(s): B02.9 - Zoster without complications Code(s): B02.9 - Zoster without complications Status: Acute Assessment and Plan: 08/04/23: see above (5) Syncope: Code(s): R55 - Syncope and collapse Status: Acute Assessment and Plan: 08/04/23: Patient had a syncopal episode when in the ER with systolic blood pressure 60/palp. She recovered there after. Will check Echo today Orthostatic blood pressures from yesterday 120/51 with map of 74 when lying down, 114/70 with map of 84 when sitting, 84/36 with map of 52 when standing. Will repeat orthostatic blood pressures today. (6) Hypothyroidism, unspecified: Qualifiers: Hypothyroidism type: unspecified Qualified Code(s): E03.9 - Hypothyroidism, unspecified Code(s): E03.9 - Hypothyroidism, unspecified Status: Acute Assessment and Plan: 08/04/23: TSH 16.40, up from previous read of 4.57 on 07/20/23 Free T4 1.24, Free T3 pending Patient currently on levothyroxine 88 mcg po daily, questioning compliance with home medication. Patient's son reports compliance with taking medication. Will increase dose of levothyroxine to 100 mcg po daily Time Spent With Patient Time with patient: Greater than 35 minutes Subjective Date/time seen: 08/04/23 07:26 Interval history: This is an 83 year old female who presented to the hospital on 08/03/23 for evaluation of weakness and frequent falls. Work up in hospital includes a chest x-ray which was negative for any cardiopulmonary disease, CT of the head revealed atrophy and chronic white matter changes
--- NOTE | 2023-08-04 08:22 | PCPTNOTE ---
Addendum entered by Akanksha Noriega, RECYCLER 08/04/23 08:24: RN notified. Original Note: Attempted to see patient's for Physical Therapy this morning. Patient stated that she was doing terrible and said no therapy today.
[2023-08-04] MEDS: ACYCLOVIR 400 MG TABLET 800 MG PO (08:53)
[2023-08-04] MEDS: PANTOPRAZOLE 40 MG TABLET PO (08:53)
[2023-08-04] MEDS: ENOXAPARIN 40 MG/0.4 ML SYRINGE SUB-Q (08:53)
[2023-08-04] MEDS: predniSONE 20 MG TABLET 40 MG PO (08:53)
[2023-08-04] MEDS: valACYclovir HCL 500 MG TABLET 1000 MG PO ×2 (12:30→20:32)
[2023-08-04 14:32] VITALS: BP 157/84; PULSE 102; RESP 17; TEMP 36.7; O2SAT 96
[2023-08-04 14:34] VITALS: BP 155/97; PULSE 134; O2SAT 100
[2023-08-04] MEDS: SODIUM CHLORIDE 0.9% IV 1,000 ML 100 ML IV CONT (16:52)
[2023-08-04 19:43] VITALS: BP 189/88; PULSE 100; RESP 16; TEMP 36.6; O2SAT 97
[2023-08-04 19:44] VITALS: BP 119/92; BP 152/112
[2023-08-05] VITALS (7 sets, daily range): BP systolic 110–143; BP diastolic 50–90; PULSE 74–98; RESP 16; TEMP 36.4–36.9; O2SAT 95–100
[2023-08-05] MEDS: LEVOTHYROXINE SODIUM 100 MCG TABLET PO (06:16)
[2023-08-05] MEDS: CAPSAICIN 0.025% CREAM 60 GM TUBE 1 APPLIC TOPICAL ×3 (06:16→18:13)
--- NOTE | 2023-08-05 07:58 | P.PNIM_ITS ---
Progress Note: A&P Assessment and Plan (1) Weakness: Code(s): R53.1 - Weakness Status: Acute Assessment and Plan: 08/03/23: * suspect weakness secondary to recent shingles infection given ongoing/intermittent weakness for the past month. however will rule out polypharmacy and will hold gabapentin, Zyrtec, and amitriptyline for 24 hours to assess if somnolence resolves. Consider alternative medication for post herpetic neuralgia such as Lyrica or monotherapy with increased dose of gabapentin. Due to mild tachycardia/hypotension with reported loose stools will also rehydrate, monitor I&Os, orthostatics daily, and obtain blood cultures. Adding c.diff given recent admission/atb administration. Hx of hypothyroidism, last TSH 4.57 on 07/20 and son reported compliance with medications. Low suspicion for alteration in thyroid levels, but given continued weakness and diarrhea will add TSH/T3/T4 to AM labs. Continue PT/OT evaluation and treatment. Care coordination consulted and plan for discharge to [facility]. WBC mildly elevated, likely due to daily oral prednisone. Continue to monitor labs. 08/04/23: * weakness most likely secondary to polypharmacy * Gabapentin, Zyrtec, amitriptyline on hold * PT and OT ordered 08/05/23: * No change to current treatment plan * Case coordination working on placement at [facility] * Continue with PT and OT (2) At risk for polypharmacy: Code(s): Z91.89 - Other specified personal risk factors, not elsewhere classified Status: Acute Assessment and Plan: 08/04/23: * see above (3) Post herpetic neuralgia: Code(s): B02.29 - Other postherpetic nervous system involvement Status: Acute Assessment and Plan: 08/03/23: * Holding gabapentin and amitriptyline due to suspected polypharmacy. Will assess for resolution of somnolence. Consider resuming gabapentin as monotherapy or alternative medications such as Lyrica. Rash remains open, continuing acyclovir and will consult Wound Care. will hold calamine lotion, substitute for capsaicin cream to be applied scheduled. Tyl and Oxy/Tyl PO prn for pain. 08/04/23: * Continue to hold Zyrtec, gabapentin, and amitriptyline due to AMS most likely related to polypharmacy. * Continue neuro checks * Stop Acyclovir and start Valtrex * Wound care to see patient today * Continue Prednisone 40 mg daily 08/05/23: * No change to current treatment plan (4) Shingles: Qualifiers: Herpes zoster complications: without complications Qualified Code(s): B02.9 - Zoster without complications Code(s): B02.9 - Zoster without complications Status: Acute Assessment and Plan: 08/04/23: * see above (5) Syncope: Code(s): R55 - Syncope and collapse Status: Acute Assessment and Plan: 08/04/23: * Patient had a syncopal episode when in the ER with systolic blood pressure 60/palp. She recovered there after. * Will check Echo today * Orthostatic blood pressures from yesterday 120/51 with map of 74 when lying down, 114/70 with map of 84 when sitting, 84/36 with map of 52 when standing. * Will repeat orthostatic blood pressures today. 08/05/23: * Orthostatic blood pressures today shown a blood pressure of 189/88 with the map of 121 in the supine position, 152/112 with a map of 125 in the sitting position, and then 119/92 with a map of 101 when standing. * Echo revealed grade 1 diastolic dysfunction normal LV systolic function with an estimated EF of 65-70%, normal RV function * This syncopal episode
--- NOTE | 2023-08-05 07:58 | PM.IMPN ---
Progress Note: A&P Assessment and Plan (1) Weakness: Code(s): R53.1 - Weakness Status: Acute Assessment and Plan: 08/03/23: suspect weakness secondary to recent shingles infection given ongoing/intermittent weakness for the past month. however will rule out polypharmacy and will hold gabapentin, Zyrtec, and amitriptyline for 24 hours to assess if somnolence resolves. Consider alternative medication for post herpetic neuralgia such as Lyrica or monotherapy with increased dose of gabapentin. Due to mild tachycardia/hypotension with reported loose stools will also rehydrate, monitor I&Os, orthostatics daily, and obtain blood cultures. Adding c.diff given recent admission/atb administration. Hx of hypothyroidism, last TSH 4.57 on 07/20 and son reported compliance with medications. Low suspicion for alteration in thyroid levels, but given continued weakness and diarrhea will add TSH/T3/T4 to AM labs. Continue PT/OT evaluation and treatment. Care coordination consulted and plan for discharge to [facility]. WBC mildly elevated, likely due to daily oral prednisone. Continue to monitor labs. 08/04/23: weakness most likely secondary to polypharmacy Gabapentin, Zyrtec, amitriptyline on hold PT and OT ordered 08/05/23: No change to current treatment plan Case coordination working on placement at [facility] Continue with PT and OT (2) At risk for polypharmacy: Code(s): Z91.89 - Other specified personal risk factors, not elsewhere classified Status: Acute Assessment and Plan: 08/04/23: see above (3) Post herpetic neuralgia: Code(s): B02.29 - Other postherpetic nervous system involvement Status: Acute Assessment and Plan: 08/03/23: Holding gabapentin and amitriptyline due to suspected polypharmacy. Will assess for resolution of somnolence. Consider resuming gabapentin as monotherapy or alternative medications such as Lyrica. Rash remains open, continuing acyclovir and will consult Wound Care. will hold calamine lotion, substitute for capsaicin cream to be applied scheduled. Tyl and Oxy/Tyl PO prn for pain. 08/04/23: Continue to hold Zyrtec, gabapentin, and amitriptyline due to AMS most likely related to polypharmacy. Continue neuro checks Stop Acyclovir and start Valtrex Wound care to see patient today Continue Prednisone 40 mg daily 08/05/23: No change to current treatment plan (4) Shingles: Qualifiers: Herpes zoster complications: without complications Qualified Code(s): B02.9 - Zoster without complications Code(s): B02.9 - Zoster without complications Status: Acute Assessment and Plan: 08/04/23: see above (5) Syncope: Code(s): R55 - Syncope and collapse Status: Acute Assessment and Plan: 08/04/23: Patient had a syncopal episode when in the ER with systolic blood pressure 60/palp. She recovered there after. Will check Echo today Orthostatic blood pressures from yesterday 120/51 with map of 74 when lying down, 114/70 with map of 84 when sitting, 84/36 with map of 52 when standing. Will repeat orthostatic blood pressures today. 08/05/23: Orthostatic blood pressures today shown a blood pressure of 189/88 with the map of 121 in the supine position, 152/112 with a map of 125 in the sitting position, and then 119/92 with a map of 101 when standing. Echo revealed grade 1 diastolic dysfunction normal LV systolic function with an estimated EF of 65-70%, normal RV function This syncopal episode may have been contributed from her polypharmacy (6) Hypothyroidism, unspecified: Qualifiers: Hypothyroidism type: unspecified Qualified Code(s): E03.9 - Hypothyroidism, unspecified Code(s): E03.9 - Hypothyroidism, unspecified Status: Acute Assessment and Plan: 08/04/23: TSH 16.40, up from previous read of 4.57 on 07/20/23 Free T4 1.24, Free T3 pending Patient currently on levothyroxine 88 m
[2023-08-05] MEDS: predniSONE 20 MG TABLET 40 MG PO (09:18)
[2023-08-05] MEDS: ENOXAPARIN 40 MG/0.4 ML SYRINGE SUB-Q (09:19)
[2023-08-05] MEDS: valACYclovir HCL 500 MG TABLET 1000 MG PO ×2 (09:19→20:43)
[2023-08-05] MEDS: PANTOPRAZOLE 40 MG TABLET PO (09:19)
[2023-08-05] MEDS: oxyCODONE/ACETAMINOPHEN (*CRX) 10-325 MG TABLET 1 TAB PO ×3 (09:26→20:43)
[2023-08-05] MEDS: ALTEPLASE 2 MG VIAL (CATHFLO) IV PUSH (10:30)
[2023-08-05] MEDS: CENTRAL LINE FLUSH 10 ML IV PUSH ×2 (13:13→20:44)
[2023-08-05 18:11] LABS: Hemoglobin 10.5 g/dL (12.0-15.0); Mean Corpuscular HGB Conc 31.8 g/dl (32-36); Mean Corpuscular Hemoglobin 29.9 pg (26-34); Mean Platelet Volume 9.1 fl (7.4-10.4); Platelet Count Result 213 k/mm3 (150-375); Red Blood Count 3.51 M/mm3 (4.2-5.4); Red Cell Distribution Width 15.9 % (11.5-14.5); White Blood Count 9.7 K/mm3 (4.5-10.0)
[2023-08-05] MEDS: SODIUM CHLORIDE 0.9% IV 1,000 ML 100 ML IV CONT ×2 (18:12→20:44)
[2023-08-05 18:34] LABS: Anion Gap 7 mmol/L (8-16); Blood Urea Nitrogen 20 mg/dL (7-17); Calcium 8.4 mg/dL (8.4-10.2); Carbon Dioxide 20 mmol/L (22-30); Chloride 105 mmol/L (98-107); Estimated CRCL calculation 53 ml/min; Estimated Glomerular Filt Rate > 60; Glucose 155 mg/dL (65-110); Sodium 132 mmol/L (137-145)
[2023-08-06] VITALS (8 sets, daily range): BP systolic 141–175; BP diastolic 65–74; PULSE 71–89; RESP 16–18; TEMP 35.8–36.8; O2SAT 92–98
[2023-08-06 06:08] LABS: Basophils Percent Auto 0.1 % (0.2-1.2); Hematocrit 29.3 % (37.0-47.0); Hemoglobin 9.4 g/dL (12.0-15.0); Immature Granulocyte Absolute 0.07 K/mm3 (0.00-0.031); Immature Granulocyte Percent A 0.9 % (0-0.5); Lymphocytes Absolute Auto 0.89 K/mm3 (0.9-3.2); Lymphocytes Percent Auto 11.3 % (18.3-44.2); Mean Corpuscular HGB Conc 32.1 g/dl (32-36); Mean Corpuscular Hemoglobin 29.7 pg (26-34); Mean Corpuscular Volume 92.4 fl (80-100); Mean Platelet Volume 8.9 fl (7.4-10.4); Monocytes Absolute Auto 0.5 K/mm3 (0.1-0.6); Monocytes Percent Auto 6.5 % (2.6-8.5); Neutrophils Absolute Auto 6.4 K/mm3 (1.3-6.7); Neutrophils Percent Auto 81.2 % (45.5-73.1); Platelet Count Result 180 k/mm3 (150-375); Red Blood Count 3.17 M/mm3 (4.2-5.4); Red Cell Distribution Width 15.6 % (11.5-14.5); White Blood Count 7.9 K/mm3 (4.5-10.0)
[2023-08-06 06:18] LABS: Alanine Aminotransferase 32 U/L (6-35); Albumin Level 2.7 g/dL (3.5-5.1); Alkaline Phosphatase 52 U/L (38-126); Anion Gap 4 mmol/L (8-16); Aspartate Amino Transferase 20 U/L (14-36); Bilirubin,Total 0.4 mg/dL (0.2-1.3); Blood Urea Nitrogen 15 mg/dL (7-17); Calcium 7.7 mg/dL (8.4-10.2); Carbon Dioxide 20 mmol/L (22-30); Chloride 108 mmol/L (98-107); Estimated CRCL calculation 61 ml/min; Estimated Glomerular Filt Rate > 60; Glucose 115 mg/dL (65-110); Potassium 3.6 mmol/L (3.4-5.0); Sodium 132 mmol/L (137-145)
[2023-08-06] MEDS: CAPSAICIN 0.025% CREAM 60 GM TUBE 1 APPLIC TOPICAL ×3 (06:51→16:58)
[2023-08-06] MEDS: CENTRAL LINE FLUSH 10 ML IV PUSH ×3 (06:51→20:43)
[2023-08-06] MEDS: LEVOTHYROXINE SODIUM 100 MCG TABLET PO (06:52)
[2023-08-06] MEDS: ENOXAPARIN 40 MG/0.4 ML SYRINGE SUB-Q (07:58)
[2023-08-06] MEDS: valACYclovir HCL 500 MG TABLET 1000 MG PO ×2 (07:58→20:42)
[2023-08-06] MEDS: predniSONE 20 MG TABLET 40 MG PO (07:58)
[2023-08-06] MEDS: PANTOPRAZOLE 40 MG TABLET PO (08:01)
[2023-08-06] MEDS: oxyCODONE/ACETAMINOPHEN (*CRX) 10-325 MG TABLET 1 TAB PO ×4 (09:44→20:42)
--- NOTE | 2023-08-06 10:56 | P.PNIM_ITS ---
Progress Note: A&P Assessment and Plan (1) Weakness: Code(s): R53.1 - Weakness Status: Acute Assessment and Plan: 08/03/23: * suspect weakness secondary to recent shingles infection given ongoing/intermittent weakness for the past month. however will rule out polypharmacy and will hold gabapentin, Zyrtec, and amitriptyline for 24 hours to assess if somnolence resolves. Consider alternative medication for post herpetic neuralgia such as Lyrica or monotherapy with increased dose of gabapentin. Due to mild tachycardia/hypotension with reported loose stools will also rehydrate, monitor I&Os, orthostatics daily, and obtain blood cultures. Adding c.diff given recent admission/atb administration. Hx of hypothyroidism, last TSH 4.57 on 07/20 and son reported compliance with medications. Low suspicion for alteration in thyroid levels, but given continued weakness and diarrhea will add TSH/T3/T4 to AM labs. Continue PT/OT evaluation and treatment. Care coordination consulted and plan for discharge to [facility]. WBC mildly elevated, likely due to daily oral prednisone. Continue to monitor labs. 08/04/23: * weakness most likely secondary to polypharmacy * Gabapentin, Zyrtec, amitriptyline on hold * PT and OT ordered 08/05/23: * No change to current treatment plan * Case coordination working on placement at [facility] * Continue with PT and OT 08/06/23: * No change to current treatment plan * Blood cultures are still pending (2) At risk for polypharmacy: Code(s): Z91.89 - Other specified personal risk factors, not elsewhere classified Status: Acute Assessment and Plan: 08/04/23: * see above (3) Post herpetic neuralgia: Code(s): B02.29 - Other postherpetic nervous system involvement Status: Acute Assessment and Plan: 08/03/23: * Holding gabapentin and amitriptyline due to suspected polypharmacy. Will assess for resolution of somnolence. Consider resuming gabapentin as monotherapy or alternative medications such as Lyrica. Rash remains open, continuing acyclovir and will consult Wound Care. will hold calamine lotion, substitute for capsaicin cream to be applied scheduled. Tyl and Oxy/Tyl PO prn for pain. 08/04/23: * Continue to hold Zyrtec, gabapentin, and amitriptyline due to AMS most likely related to polypharmacy. * Continue neuro checks * Stop Acyclovir and start Valtrex * Wound care to see patient today * Continue Prednisone 40 mg daily 08/05/23: * No change to current treatment plan 08/06/23: * We will restart gabapentin 600 mg b.i.d. which is a lesser dose in which she was originally prescribed. We will continue to monitor her pain and mental status. * Amitriptyline will remain on hold (4) Shingles: Qualifiers: Herpes zoster complications: without complications Qualified Code(s): B02.9 - Zoster without complications Code(s): B02.9 - Zoster without complications Status: Acute Assessment and Plan: 08/04/23: * see above (5) Syncope: Code(s): R55 - Syncope and collapse Status: Acute Assessment and Plan: 08/04/23: * Patient had a syncopal episode when in the ER with systolic blood pressure 60/palp. She recovered there after. * Will check Echo today * Orthostatic blood pressures from yesterday 120/51 with map of 74 when lying down, 114/70 with map of 84 when sitting, 84/36 with map of 52 when standing. * Will repeat orthostatic blood pressures today. 08/05/23: * Orthostatic blood pressures today shown a bl
--- NOTE | 2023-08-06 10:56 | PM.IMPN ---
Progress Note: A&P Assessment and Plan (1) Weakness: Code(s): R53.1 - Weakness Status: Acute Assessment and Plan: 08/03/23: suspect weakness secondary to recent shingles infection given ongoing/intermittent weakness for the past month. however will rule out polypharmacy and will hold gabapentin, Zyrtec, and amitriptyline for 24 hours to assess if somnolence resolves. Consider alternative medication for post herpetic neuralgia such as Lyrica or monotherapy with increased dose of gabapentin. Due to mild tachycardia/hypotension with reported loose stools will also rehydrate, monitor I&Os, orthostatics daily, and obtain blood cultures. Adding c.diff given recent admission/atb administration. Hx of hypothyroidism, last TSH 4.57 on 07/20 and son reported compliance with medications. Low suspicion for alteration in thyroid levels, but given continued weakness and diarrhea will add TSH/T3/T4 to AM labs. Continue PT/OT evaluation and treatment. Care coordination consulted and plan for discharge to [facility]. WBC mildly elevated, likely due to daily oral prednisone. Continue to monitor labs. 08/04/23: weakness most likely secondary to polypharmacy Gabapentin, Zyrtec, amitriptyline on hold PT and OT ordered 08/05/23: No change to current treatment plan Case coordination working on placement at [facility] Continue with PT and OT 08/06/23: No change to current treatment plan Blood cultures are still pending (2) At risk for polypharmacy: Code(s): Z91.89 - Other specified personal risk factors, not elsewhere classified Status: Acute Assessment and Plan: 08/04/23: see above (3) Post herpetic neuralgia: Code(s): B02.29 - Other postherpetic nervous system involvement Status: Acute Assessment and Plan: 08/03/23: Holding gabapentin and amitriptyline due to suspected polypharmacy. Will assess for resolution of somnolence. Consider resuming gabapentin as monotherapy or alternative medications such as Lyrica. Rash remains open, continuing acyclovir and will consult Wound Care. will hold calamine lotion, substitute for capsaicin cream to be applied scheduled. Tyl and Oxy/Tyl PO prn for pain. 08/04/23: Continue to hold Zyrtec, gabapentin, and amitriptyline due to AMS most likely related to polypharmacy. Continue neuro checks Stop Acyclovir and start Valtrex Wound care to see patient today Continue Prednisone 40 mg daily 08/05/23: No change to current treatment plan 08/06/23: We will restart gabapentin 600 mg b.i.d. which is a lesser dose in which she was originally prescribed. We will continue to monitor her pain and mental status. Amitriptyline will remain on hold (4) Shingles: Qualifiers: Herpes zoster complications: without complications Qualified Code(s): B02.9 - Zoster without complications Code(s): B02.9 - Zoster without complications Status: Acute Assessment and Plan: 08/04/23: see above (5) Syncope: Code(s): R55 - Syncope and collapse Status: Acute Assessment and Plan: 08/04/23: Patient had a syncopal episode when in the ER with systolic blood pressure 60/palp. She recovered there after. Will check Echo today Orthostatic blood pressures from yesterday 120/51 with map of 74 when lying down, 114/70 with map of 84 when sitting, 84/36 with map of 52 when standing. Will repeat orthostatic blood pressures today. 08/05/23: Orthostatic blood pressures today shown a blood pressure of 189/88 with the map of 121 in the supine position, 152/112 with a map of 125 in the sitting position, and then 119/92 with a map of 101 when standing. Echo revealed grade 1 diastolic dysfunction normal LV systolic function with an estimated EF of 65-70%, normal RV function This syncopal episode may have been contributed from her polypharmacy 08/06/23: Orthostatic blood pressures today are still showing improvement Patient has had or syn
--- NOTE | 2023-08-06 13:18 | PC.NURSE ---
0800 Call received from lab that patient has positive blood cultures and after 30 min report was still not in computer. Lab notified and they will call [facility] to see if report can be faxed.
--- NOTE | 2023-08-06 13:20 | PC.NURSE ---
1000 Call placed to lab regarding blood culture result not in computer yet, they will call [facility] again.
--- NOTE | 2023-08-06 13:22 | PC.NURSE ---
1320 I have still not received blood culture results from this a called this am , lab notified again.
[2023-08-06] MEDS: GABAPENTIN 300 MG CAPSULE 600 MG PO (15:25)
[2023-08-06] MEDS: ACETAMINOPHEN 325 MG TABLET 650 MG PO (15:25)
[2023-08-07] VITALS (7 sets, daily range): BP systolic 102–161; BP diastolic 60–100; PULSE 76–111; RESP 17–18; TEMP 36.3–37; O2SAT 92–96
[2023-08-07] MEDS: CAPSAICIN 0.025% CREAM 60 GM TUBE 1 APPLIC TOPICAL ×4 (00:56→17:01)
[2023-08-07] MEDS: CENTRAL LINE FLUSH 10 ML IV PUSH ×3 (05:07→21:38)
[2023-08-07] MEDS: LEVOTHYROXINE SODIUM 100 MCG TABLET PO (05:10)
[2023-08-07] MEDS: oxyCODONE/ACETAMINOPHEN (*CRX) 10-325 MG TABLET 1 TAB PO ×2 (05:10→12:00)
[2023-08-07 06:12] LABS: Basophils Percent Auto 0.2 % (0.2-1.2); Hematocrit 31.4 % (37.0-47.0); Hemoglobin 10.3 g/dL (12.0-15.0); Immature Granulocyte Absolute 0.04 K/mm3 (0.00-0.031); Immature Granulocyte Percent A 0.7 % (0-0.5); Lymphocytes Absolute Auto 1.24 K/mm3 (0.9-3.2); Lymphocytes Percent Auto 21.2 % (18.3-44.2); Mean Corpuscular HGB Conc 32.8 g/dl (32-36); Mean Corpuscular Hemoglobin 30.5 pg (26-34); Mean Corpuscular Volume 92.9 fl (80-100); Mean Platelet Volume 9.2 fl (7.4-10.4); Monocytes Absolute Auto 0.3 K/mm3 (0.1-0.6); Monocytes Percent Auto 5.5 % (2.6-8.5); Neutrophils Absolute Auto 4.3 K/mm3 (1.3-6.7); Neutrophils Percent Auto 72.4 % (45.5-73.1); Nucleated Red Blood Cells Perc 0.3 % (0.0-0.2); Platelet Count Result 187 k/mm3 (150-375); Red Blood Count 3.38 M/mm3 (4.2-5.4); White Blood Count 5.9 K/mm3 (4.5-10.0)
[2023-08-07 06:38] LABS: Alanine Aminotransferase 34 U/L (6-35); Alkaline Phosphatase 59 U/L (38-126); Anion Gap 4 mmol/L (8-16); Aspartate Amino Transferase 20 U/L (14-36); Bilirubin,Total 0.6 mg/dL (0.2-1.3); Blood Urea Nitrogen 16 mg/dL (7-17); Calcium 8.2 mg/dL (8.4-10.2); Carbon Dioxide 21 mmol/L (22-30); Chloride 105 mmol/L (98-107); Estimated CRCL calculation 53 ml/min; Estimated Glomerular Filt Rate > 60; Glucose 99 mg/dL (65-110); Potassium 3.8 mmol/L (3.4-5.0); Sodium 130 mmol/L (137-145)
[2023-08-07 07:25] LABS: Anisocytosis 1+ (NORMAL); Platelet Estimate Adequate (Adequate); Schistocytes None Seen (NORMAL)
[2023-08-07] MEDS: ENOXAPARIN 40 MG/0.4 ML SYRINGE SUB-Q (07:52)
[2023-08-07] MEDS: AMOXICILLIN/CLAVULANATE K 875-125 MG TAB 1 TABLET PO (07:52)
[2023-08-07] MEDS: GABAPENTIN 300 MG CAPSULE 600 MG PO ×2 (07:52→17:01)
[2023-08-07] MEDS: predniSONE 20 MG TABLET 40 MG PO (07:53)
[2023-08-07] MEDS: PANTOPRAZOLE 40 MG TABLET PO (07:53)
[2023-08-07] MEDS: valACYclovir HCL 500 MG TABLET 1000 MG PO ×2 (07:53→21:30)
[2023-08-07] MEDS: LINEZOLID 600 MG TABLET PO ×2 (11:59→21:30)
--- NOTE | 2023-08-07 12:14 | PM.DS ---
DS: Admitting Diagnosis Discharge Date 08/07/23 Admitting Diagnosis Weakness post herpetic neurologia DS: Discharge Diagnosis Discharge Diagnosis (1) Weakness: Code(s): R53.1 - Weakness Status: Acute (2) At risk for polypharmacy: Code(s): Z91.89 - Other specified personal risk factors, not elsewhere classified Status: Acute (3) Post herpetic neuralgia: Code(s): B02.29 - Other postherpetic nervous system involvement Status: Acute (4) Shingles: Qualifiers: Herpes zoster complications: without complications Qualified Code(s): B02.9 - Zoster without complications Code(s): B02.9 - Zoster without complications Status: Acute (5) Syncope: Code(s): R55 - Syncope and collapse Status: Acute (6) Hypothyroidism, unspecified: Qualifiers: Hypothyroidism type: unspecified Qualified Code(s): E03.9 - Hypothyroidism, unspecified Code(s): E03.9 - Hypothyroidism, unspecified Status: Acute DS: Summary Hospital Course Reason for hospitalization: weakness post herpetic neuralgia bacteremia Hospital Course: This is an 83 year old female who presented to the hospital on 08/03/23 for evaluation of weakness and frequent falls. Work up in hospital includes a chest x-ray which was negative for any cardiopulmonary disease, CT of the head revealed atrophy and chronic white matter changes and was negative for any hemorrhage, mass, or acute infarct; CT of cervical spine was negative for any fracture, minimal grade 1 anterolisthesis of C3-C4, and C4-C5, mild to moderate degenerative spondylosis. While in the ER the patient had a syncopal episode with blood pressures 60's/palp however patient recovered fully shortly after. During her hospital stay, her mentation improved over a few days and patient is currently back to baseline mental status. She is alert and oriented x3, has trouble with remembering dates but according to family this is her baseline. She was at risk for polypharmacy (read notes below) as she went to multiple providers over the course of a few weeks and was taking Flexeril, started on 150mg of amitriptyline, and had increased her Neurontin to 600mg TID. All these medications were held on admission. Amitriptyline and Flexeril were discontinued and I decreased her Neurontin dose to 600 mg BID. We also changed her acyclovir to Valtrex. She was started on [place] as well. So far she is tolerating this regimen well. VSS, she is afebrile, she is on room air. Blood cultures were obtained and shown enterococcus faecium in 1 out of 2 vials. Patient started on oral Linezolid 600 mg BID for 14 days. New set of blood cultures were obtained. She will need negative blood cultures to discontinue antibiotic use. Patient is stable for discharge to [facility]. Of note, patient was recently hospitalized on 07/16/23 for left sided back pain. She was diagnosed with a UTI and possible pneumonia, urine cultures showing E.coli. She was discharged home on Azithromycin. On 07/19/23 patient was seen at PCP office with increasing back pain. She was prescribed Flexeril. On 07/19/23 patient presented back to the hospital after a ground level fall and generalized weakness. She was noted to have a shingles rash on this admission and was started on acyclovir and Augmentin. She was discharged on the the . [facility] with complaints of post herpetic neuralgia. She was given amitriptyline and gabapentin was increased to 600 mg TID. After the increase in her medications from the [facility] patient had 2 additional falls prompting her to get re-evaluated again.? Status at Discharge Cognitive/behavioral status at discharge: Alert and oriented x3 Functional status at discharge: uses cane/walker Overall status at discharge: patient is progressing back to baseline Time Spent with Patient Time attestation: Total time spent providing and/or coordinating discharge servic
[2023-08-08] VITALS (7 sets, daily range): BP systolic 90–156; BP diastolic 60–78; PULSE 65–120; RESP 12–19; TEMP 35.6–36.8; O2SAT 96–100
[2023-08-08] MEDS: CAPSAICIN 0.025% CREAM 60 GM TUBE 1 APPLIC TOPICAL ×5 (00:21→23:51)
[2023-08-08] MEDS: CENTRAL LINE FLUSH 10 ML IV PUSH ×3 (05:02→20:42)
[2023-08-08 05:10] LABS: Hematocrit 27.5 % (37.0-47.0); Hemoglobin 8.8 g/dL (12.0-15.0); Immature Granulocyte Absolute 0.07 K/mm3 (0.00-0.031); Immature Granulocyte Percent A 0.9 % (0-0.5); Lymphocytes Absolute Auto 1.19 K/mm3 (0.9-3.2); Lymphocytes Percent Auto 15.7 % (18.3-44.2); Mean Corpuscular Volume 93.9 fl (80-100); Monocytes Absolute Auto 0.4 K/mm3 (0.1-0.6); Monocytes Percent Auto 5.4 % (2.6-8.5); Neutrophils Absolute Auto 5.9 K/mm3 (1.3-6.7); Platelet Count Result 177 k/mm3 (150-375); Red Blood Count 2.93 M/mm3 (4.2-5.4); White Blood Count 7.6 K/mm3 (4.5-10.0)
[2023-08-08] MEDS: oxyCODONE/ACETAMINOPHEN (*CRX) 10-325 MG TABLET 1 TAB PO ×2 (05:10→08:56)
[2023-08-08] MEDS: LEVOTHYROXINE SODIUM 100 MCG TABLET PO (05:11)
[2023-08-08 05:20] LABS: Alanine Aminotransferase 32 U/L (6-35); Albumin Level 2.7 g/dL (3.5-5.1); Alkaline Phosphatase 55 U/L (38-126); Anion Gap 4 mmol/L (8-16); Aspartate Amino Transferase 20 U/L (14-36); Bilirubin,Total 0.5 mg/dL (0.2-1.3); Blood Urea Nitrogen 18 mg/dL (7-17); Calcium 7.8 mg/dL (8.4-10.2); Carbon Dioxide 22 mmol/L (22-30); Chloride 105 mmol/L (98-107); Estimated CRCL calculation 42 ml/min; Estimated Glomerular Filt Rate 60; Glucose 118 mg/dL (65-110); Potassium 4.3 mmol/L (3.4-5.0); Sodium 131 mmol/L (137-145)
[2023-08-08] MEDS: ACETAMINOPHEN 325 MG TABLET 650 MG PO (06:49)
--- NOTE | 2023-08-08 07:24 | P.PNIM_ITS ---
Progress Note: A&P Assessment and Plan (1) Bacteremia: Code(s): R78.81 - Bacteremia Status: Acute Assessment and Plan: 08/08/23: * First set of blood cultures showing VRE in 1 vial and Gram-positive cocci and chains in the other vial on the preliminary read. * 2nd set of blood cultures are pending * patient will remain on Levaquin po for now * Case Management following for discharge needs. Plan is to go to [facility] once blood cultures are negative. * Started patient on Dulcolax and Colace as she reports no BM in 5 days (2) Weakness: Code(s): R53.1 - Weakness Status: Acute Assessment and Plan: 08/03/23: * suspect weakness secondary to recent shingles infection given ongoing/intermittent weakness for the past month. however will rule out polypharmacy and will hold gabapentin, Zyrtec, and amitriptyline for 24 hours to assess if somnolence resolves. Consider alternative medication for post herpetic neuralgia such as Lyrica or monotherapy with increased dose of gabapentin. Due to mild tachycardia/hypotension with reported loose stools will also rehydrate, monitor I&Os, orthostatics daily, and obtain blood cultures. Adding c.diff given recent admission/atb administration. Hx of hypothyroidism, last TSH 4.57 on 07/20 and son reported compliance with medications. Low suspicion for alteration in thyroid levels, but given continued weakness and diarrhea will add TSH/T3/T4 to AM labs. Continue PT/OT evaluation and treatment. Care coordination consulted and plan for discharge to [facility]. WBC mildly elevated, likely due to daily oral prednisone. Continue to monitor labs. 08/04/23: * weakness most likely secondary to polypharmacy * Gabapentin, Zyrtec, amitriptyline on hold * PT and OT ordered 08/05/23: * No change to current treatment plan * Case coordination working on placement at [facility] * Continue with PT and OT 08/06/23: * No change to current treatment plan (3) At risk for polypharmacy: Code(s): Z91.89 - Other specified personal risk factors, not elsewhere classified Status: Acute Assessment and Plan: 08/04/23: * see above (4) Post herpetic neuralgia: Code(s): B02.29 - Other postherpetic nervous system involvement Status: Acute Assessment and Plan: 08/03/23: * Holding gabapentin and amitriptyline due to suspected polypharmacy. Will assess for resolution of somnolence. Consider resuming gabapentin as monotherapy or alternative medications such as Lyrica. Rash remains open, continuing acyclovir and will consult Wound Care. will hold calamine lotion, substitute for capsaicin cream to be applied scheduled. Tyl and Oxy/Tyl PO prn for pain. 08/04/23: * Continue to hold Zyrtec, gabapentin, and amitriptyline due to AMS most likely related to polypharmacy. * Continue neuro checks * Stop Acyclovir and start Valtrex * Wound care to see patient today * Continue Prednisone 40 mg daily 08/05/23: * No change to current treatment plan 08/06/23: * We will restart gabapentin 600 mg b.i.d. which is a lesser dose in which she was originally prescribed. We will continue to monitor her pain and mental status. * Amitriptyline will remain on hold 08/08/23: * will continue Valtrex, prednisone, [place], and gabapentin * Encouraged patient to ask for her pain medication that is prescribed as needed. * Will start amitriptyline 12.5 mg at HS now that she is more alert and awake (5) Shingles: Qualifiers: Herpes zoster complication
--- NOTE | 2023-08-08 07:24 | PM.IMPN ---
Progress Note: A&P Assessment and Plan (1) Bacteremia: Code(s): R78.81 - Bacteremia Status: Acute Assessment and Plan: 08/08/23: First set of blood cultures showing VRE in 1 vial and Gram-positive cocci and chains in the other vial on the preliminary read. 2nd set of blood cultures are pending patient will remain on Levaquin po for now Case Management following for discharge needs. Plan is to go to [facility] once blood cultures are negative. Started patient on Dulcolax and Colace as she reports no BM in 5 days (2) Weakness: Code(s): R53.1 - Weakness Status: Acute Assessment and Plan: 08/03/23: suspect weakness secondary to recent shingles infection given ongoing/intermittent weakness for the past month. however will rule out polypharmacy and will hold gabapentin, Zyrtec, and amitriptyline for 24 hours to assess if somnolence resolves. Consider alternative medication for post herpetic neuralgia such as Lyrica or monotherapy with increased dose of gabapentin. Due to mild tachycardia/hypotension with reported loose stools will also rehydrate, monitor I&Os, orthostatics daily, and obtain blood cultures. Adding c.diff given recent admission/atb administration. Hx of hypothyroidism, last TSH 4.57 on 07/20 and son reported compliance with medications. Low suspicion for alteration in thyroid levels, but given continued weakness and diarrhea will add TSH/T3/T4 to AM labs. Continue PT/OT evaluation and treatment. Care coordination consulted and plan for discharge to [facility]. WBC mildly elevated, likely due to daily oral prednisone. Continue to monitor labs. 08/04/23: weakness most likely secondary to polypharmacy Gabapentin, Zyrtec, amitriptyline on hold PT and OT ordered 08/05/23: No change to current treatment plan Case coordination working on placement at [facility] Continue with PT and OT 08/06/23: No change to current treatment plan (3) At risk for polypharmacy: Code(s): Z91.89 - Other specified personal risk factors, not elsewhere classified Status: Acute Assessment and Plan: 08/04/23: see above (4) Post herpetic neuralgia: Code(s): B02.29 - Other postherpetic nervous system involvement Status: Acute Assessment and Plan: 08/03/23: Holding gabapentin and amitriptyline due to suspected polypharmacy. Will assess for resolution of somnolence. Consider resuming gabapentin as monotherapy or alternative medications such as Lyrica. Rash remains open, continuing acyclovir and will consult Wound Care. will hold calamine lotion, substitute for capsaicin cream to be applied scheduled. Tyl and Oxy/Tyl PO prn for pain. 08/04/23: Continue to hold Zyrtec, gabapentin, and amitriptyline due to AMS most likely related to polypharmacy. Continue neuro checks Stop Acyclovir and start Valtrex Wound care to see patient today Continue Prednisone 40 mg daily 08/05/23: No change to current treatment plan 08/06/23: We will restart gabapentin 600 mg b.i.d. which is a lesser dose in which she was originally prescribed. We will continue to monitor her pain and mental status. Amitriptyline will remain on hold 08/08/23: will continue Valtrex, prednisone, [place], and gabapentin Encouraged patient to ask for her pain medication that is prescribed as needed. Will start amitriptyline 12.5 mg at HS now that she is more alert and awake (5) Shingles: Qualifiers: Herpes zoster complications: without complications Qualified Code(s): B02.9 - Zoster without complications Code(s): B02.9 - Zoster without complications Status: Acute Assessment and Plan: 08/04/23: see above Reporting 9/10 pain mostly on her abdomen where shingles are (6) Hypothyroidism, unspecified: Qualifiers: Hypothyroidism type: unspecified Qualified Code(s): E03.9 - Hypothyroidism, unspecified Code(s): E03.9 - Hypothyroidism, unspecifi
[2023-08-08] MEDS: GABAPENTIN 300 MG CAPSULE 600 MG PO ×2 (08:10→16:33)
[2023-08-08] MEDS: valACYclovir HCL 500 MG TABLET 1000 MG PO ×2 (08:10→20:42)
[2023-08-08] MEDS: ENOXAPARIN 40 MG/0.4 ML SYRINGE SUB-Q (08:10)
[2023-08-08] MEDS: LINEZOLID 600 MG TABLET PO ×2 (08:11→20:43)
[2023-08-08] MEDS: PANTOPRAZOLE 40 MG TABLET PO (08:11)
[2023-08-08] MEDS: predniSONE 20 MG TABLET 40 MG PO (08:11)
--- NOTE | 2023-08-08 11:22 | PC.NURSE ---
On 08/08/23, the student, [Kami Luna], provided care and completed [facility] documentation on this patient. I have reviewed the student's documentation and agree with the findings.
[2023-08-08] MEDS: DOCUSATE SODIUM 100 MG CAPSULE PO (20:42)
[2023-08-09 04:35] LABS: Basophils Percent Auto 0.1 % (0.2-1.2); Hemoglobin 8.8 g/dL (12.0-15.0); Immature Granulocyte Absolute 0.17 K/mm3 (0.00-0.031); Immature Granulocyte Percent A 2.2 % (0-0.5); Lymphocytes Absolute Auto 1.42 K/mm3 (0.9-3.2); Lymphocytes Percent Auto 18.4 % (18.3-44.2); Mean Corpuscular HGB Conc 32.6 g/dl (32-36); Mean Corpuscular Hemoglobin 30.2 pg (26-34); Mean Corpuscular Volume 92.8 fl (80-100); Mean Platelet Volume 8.9 fl (7.4-10.4); Monocytes Absolute Auto 0.5 K/mm3 (0.1-0.6); Monocytes Percent Auto 6.7 % (2.6-8.5); Neutrophils Absolute Auto 5.6 K/mm3 (1.3-6.7); Neutrophils Percent Auto 72.6 % (45.5-73.1); Nucleated Red Blood Cells Perc 0.3 % (0.0-0.2); Platelet Count Result 175 k/mm3 (150-375); Red Blood Count 2.91 M/mm3 (4.2-5.4); Red Cell Distribution Width 16.1 % (11.5-14.5); White Blood Count 7.7 K/mm3 (4.5-10.0)
[2023-08-09 04:47] LABS: Alanine Aminotransferase 36 U/L (6-35); Albumin Level 2.8 g/dL (3.5-5.1); Alkaline Phosphatase 59 U/L (38-126); Anion Gap 1 mmol/L (8-16); Aspartate Amino Transferase 24 U/L (14-36); Bilirubin,Total 0.5 mg/dL (0.2-1.3); Blood Urea Nitrogen 16 mg/dL (7-17); Calcium 7.8 mg/dL (8.4-10.2); Carbon Dioxide 24 mmol/L (22-30); Chloride 105 mmol/L (98-107); Estimated CRCL calculation 38 ml/min; Estimated Glomerular Filt Rate 53; Glucose 122 mg/dL (65-110); Potassium 4.1 mmol/L (3.4-5.0); Sodium 130 mmol/L (137-145)
[2023-08-09 05:07] VITALS: BP 131/68; PULSE 67; RESP 19; TEMP 36; O2SAT 99
[2023-08-09] MEDS: CAPSAICIN 0.025% CREAM 60 GM TUBE 1 APPLIC TOPICAL ×2 (05:21→12:13)
[2023-08-09] MEDS: CENTRAL LINE FLUSH 10 ML IV PUSH ×2 (05:21→15:28)
[2023-08-09] MEDS: LEVOTHYROXINE SODIUM 100 MCG TABLET PO (05:21)
[2023-08-09] MEDS: DOCUSATE SODIUM 100 MG CAPSULE PO (08:10)
[2023-08-09] MEDS: BISACODYL 5 MG TABLET EC PO (08:10)
[2023-08-09] MEDS: ENOXAPARIN 40 MG/0.4 ML SYRINGE SUB-Q (08:11)
[2023-08-09] MEDS: GABAPENTIN 300 MG CAPSULE 600 MG PO (08:11)
[2023-08-09] MEDS: predniSONE 20 MG TABLET 40 MG PO (08:11)
[2023-08-09] MEDS: valACYclovir HCL 500 MG TABLET 1000 MG PO (08:11)
[2023-08-09] MEDS: PANTOPRAZOLE 40 MG TABLET PO (08:11)
[2023-08-09] MEDS: LINEZOLID 600 MG TABLET PO (08:11)
[2023-08-09] MEDS: ACETAMINOPHEN 325 MG TABLET 650 MG PO (10:30)
--- NOTE | 2023-08-09 12:57 | PM.DS ---
DS: Admitting Diagnosis Discharge Date 08/09/23 Admitting Diagnosis multiple falls, shingles DS: Discharge Diagnosis Discharge Diagnosis (1) Bacteremia: Code(s): R78.81 - Bacteremia Status: Acute (2) Weakness: Code(s): R53.1 - Weakness Status: Acute (3) At risk for polypharmacy: Code(s): Z91.89 - Other specified personal risk factors, not elsewhere classified Status: Acute (4) Post herpetic neuralgia: Code(s): B02.29 - Other postherpetic nervous system involvement Status: Acute (5) Shingles: Qualifiers: Herpes zoster complications: without complications Qualified Code(s): B02.9 - Zoster without complications Code(s): B02.9 - Zoster without complications Status: Acute (6) Hypothyroidism, unspecified: Qualifiers: Hypothyroidism type: unspecified Qualified Code(s): E03.9 - Hypothyroidism, unspecified Code(s): E03.9 - Hypothyroidism, unspecified Status: Acute DS: Summary Hospital Course Hospital Course: This is a 83-year-old female with a past medical history of hypertension, hypothyroidism, metastatic melanoma, breast and lung cancer and hyperlipidemia the presented to the ED on 08/03/2023. Patient presented to the hospital due to left-sided back pain as well as a ground level fall. She was found to have a erythematous rash following a dermatome across her left ribcage that was diagnosed as shingles. She was started on IV acyclovir then transition to Valtrex. patient had recently been seen for complaints of herpetic neuralgia and her gabapentin was increased to the 600 mg t.i.d. as well as an increase in her Flexeril and amitriptyline. Due to her increased falls Flexeril was discontinued, gabapentin was decreased to 60 b.i.d. patient did have positive blood culture in 1 bottle being VRE. Blood cultures were redrawn. Due to possible contaminant patient was not started on any antibiotics at that time. Blood cultures remain negative after 48 hours. she was accepted into [facility] and discharged there. Her labs and vital signs are stable and she is medically clear for discharge at this time. Will continue to follow blood cultures and call patient if blood cultures come back concerning. Time Spent with Patient Time attestation: Total time spent providing and/or coordinating discharge services: Exam Narrative: GENERAL: Comfortable, no acute distress HENMT: moist mucous membranes EYES: EOM intact b/l NECK: no lymphadenopathy RESPIRATORY: clear to auscultation CARDIO: RRR GI: soft, nontender, bowel sounds present SKIN: no rashes EXTREMITIES: no edema, redness or tenderness DS: Data Data Completed and Pending Labs on day of discharge: Labs from last 24 hours 08/09/23 04:27 WBC 7.7 RBC 2.91 L Hgb 8.8 L Hct 27.0 L MCV 92.8 MCH 30.2 MCHC 32.6 RDW 16.1 H Plt Count 175 MPV 8.9 Immature Gran % (Auto) 2.2 H Neut % (Auto) 72.6 Lymph % (Auto) 18.4 Taylor % (Auto) 6.7 Eos % (Auto) 0.0 Baso % (Auto) 0.1 L Lymph # (Auto) 1.42 Taylor # (Auto) 0.5 Eos # (Auto) 0.0 Baso # (Auto) 0.0 Abs Immat Gran (auto) 0.17 H Absolute Neuts (auto) 5.6 Absolute Nucleated RBC 0.0 Nucleated RBC % 0.3 H Sodium 130 L Potassium 4.1 Chloride 105 Carbon Dioxide 24 Anion Gap 1 L BUN 16 Creatinine 1.00 Estim Creat Clear Calc 38 Estimated GFR 53 L Glucose 122 H Calcium 7.8 L Total Bilirubin 0.5 AST 24 ALT 36 H Alkaline Phosphatase 59 Total Protein 5.0 L Albumin 2.8 L Preliminary micro results at discharge 08/07/23 14:14 Blood Culture - Preliminary Blood 08/07/23 14:13 Blood Culture - Preliminary Blood 08/03/23 16:07 Blood Culture - Preliminary Blood Vanco Res Enterococcus faecium 08/03/23 16:25 Blood Culture - Preliminary Blood Discharge Plan Discharge Attending physician on discharge: Farzad Scott Discharging Clinician: Meliza Amaro
[2023-08-09 13:52] VITALS: BP 133/69; PULSE 95; RESP 14; TEMP 36.1; O2SAT 96
[2023-08-09] MEDS: HEPARIN SODIUM LOCK FLUSH 500 UNITS/5 ML SYRINGE IV PUSH (15:27)
== END 2023-08-09 16:14 | DRG 81 ==
LOC: ANHED 10:55 → ANH2MED 13:56
PROVIDERS: Emergency Medicine; Nurse Practitioner Acute Care; Student in an Organized Health Care Education/Training Program; Admitting Provider Family Medicine; Emergency Provider Emergency Medicine; PCP Family Medicine; Visit Provider Internal Medicine Critical Care Medicine
DX: R40.0 Somnolence (principal); B02.29 Other postherpetic nervous system involvement; R78.81 Bacteremia; Z16.21 Resistance to vancomycin; R53.1 Weakness; R55 Syncope and collapse; T43.015A Adverse effect of tricyclic antidepressants, initial encounter; T45.0X5A Adverse effect of antiallergic and antiemetic drugs, initial encounter; T42.6X5A Adverse effect of other antiepileptic and sedative-hypnotic drugs, initial encounter; B02.9 Zoster without complications; B95.2 Enterococcus as the cause of diseases classified elsewhere; E03.9 Hypothyroidism, unspecified; E78.5 Hyperlipidemia, unspecified; I10 Essential (primary) hypertension; R29.6 Repeated falls; Z66 Do not resuscitate; Z85.820 Personal history of malignant melanoma of skin; Z85.3 Personal history of malignant neoplasm of breast; Z85.118 Personal history of other malignant neoplasm of bronchus and lung
CPT/HCPCS: 36415; 70450; 71046; 72125; 80048; 80053; 81003; 83605; 84439; 84443; 84480; 85025; 85027; 87040; 87147; 87181; 87186; 87493; 93005; 93306; 96361; 96372; 97110; 97116; 97161; 97165; 97530; 97535; 99285; A9270; G0378; J1642; J1650; J2997; J7030; J7512

== ENCOUNTER → 2023-08-17 10:39 | Outpatient (REF) | payer OTHER, SELFPAY ==
--- NOTE | ~2023-08-17 | CT_ITS ---
EXAMINATION: CT abdomen pelvis w con INDICATION: Left flank pain, abdominal distention TECHNIQUE: Computed tomographic images of the abdomen and pelvis were obtained after the administrati on of 100 cc of Omnipaque 350 intravenous contrast. The dose-length product (DLP) was 879.49 mGy-cm. Automated exposure control and iterative reconstruction technique were employed. COMPARISON: None available FINDINGS: Minimal dependent atelectasis is present in the lung bases. The heart size is normal. There is a Port-A-Cath tip in the distal superior vena cava. The liver, spleen, pancreas, and adrenal glan ds are normal. Stones are present in the nondistended gallbladder. There are peripelvic cysts of the kidneys. A large volume of colonic stool is present. There is hyperattenuating material in the cecum abutting normal thickness colonic wall. There is moderate thoracolumbar spondylosis. The appendix is normal. No pathologically enlarged abdominal or pelvic lymph nodes are identified. No free intraperit barbour gas or evidence of bowel obstruction. There is calcified atherosclerosis of the aorta and many of the other arteries. IMPRESSION: 1. Constipation. 2. Hyperattenuating material of the cecum, likely hyperdense stool. Reviewed, dictated and finalized at location L. ING SUPERVISOR
== END ==
LOC: ANHIMG 10:39
PROVIDERS: PCP Family Medicine; Visit Provider Internal Medicine
DX: K59.00 Constipation, unspecified (principal)
CPT/HCPCS: 74177; Q9967

== ENCOUNTER 2023-09-25 10:16 | Emergency (ER) | payer MEDICARE, SELFPAY ==
[2023-09-25] VITALS (9 sets, daily range): BP systolic 92–145; BP diastolic 53–83; PULSE 91–117; RESP 16–35; TEMP 36.4; O2SAT 99–100
--- NOTE | ~2023-09-25 | XR_ITS ---
XR chest 1V portable 09/25/2023 11:28 Indication: Weakness Procedure: AP portable chest Comparison: Comparison to multiple prior studies sequentially, with oldest reviewed study dated 03/2010. Findings: Heart size normal. There are calcified granulomas bilaterally. Right-sided portacatheter ti p in the condyle aspect of the SVC. No focal air space disease, pulmonary edema, pleural effusion or suspected pneumothorax. Shallow inspiration. Impression: 1: No acute cardiopulmonary disease. Reviewed, dictated and finalized at location B. ALL FINISHER FOREMAN Impression: 1: No acute cardiopulmonary disease.
--- NOTE | 2023-09-25 10:37 | ECG_ITS ---
Measurements Intervals [place] Rate: 116 P: -1 [place]: 139 QRS: -6 QRSD: 74 T: 32 QT: 284 QTc: 395 Interpretive Statements SINUS TACHYCARDIA DELAYED PRECORDIAL R/S TRANSITION CONSIDER INFERIOR INFARCT, AGE INDETERMINATE BASELINE ARTIFACT- I, II, III, AVR, AVL, AVF, V5 ABNORMAL ECG COMPARED TO ECG 08/03/2023 07:29:16 SINUS TACHYCARDIA NOW PRESENT Electronically Signed On 09-25-2023 11:48:26 CHIEF CONSTRUCTION INSPECTOR by Ntaanael Riddle D.O.
--- NOTE | 2023-09-25 12:16 | ED.GENADULT ---
HPI - General Adult General Chief complaint: Weakness Stated complaint: FTT Time Seen by Provider: 09/25/23 12:01 History of Present Illness HPI narrative: Patient is an 83-year-old female with a history of metastatic melanoma, lung and brain cancer ( primaries?) presenting with an episode of somnolence. Patient is coming from a nursing facility. She reportedly did not want to wake up this morning so they sent her in for evaluation. She is currently being treated for pneumonia as well as a UTI. For me, patient is alert and oriented. She tells me that she has been to this hospital many times. She complains of 3-6 months of abdominal pain that is unchanged. Related Data Home Medications Medication Instructions Recorded Confirmed levothyroxine 75 mcg capsule 88 mcg PO DAILY 07/18/23 09/29/23 pantoprazole 40 mg tablet,delayed 40 mg PO DAILY 07/18/23 09/29/23 release (Protonix) prednisone 20 mg tablet 10 mg PO DAILY 08/02/23 09/29/23 amitriptyline 150 mg tablet 25 mg PO QHS 09/29/23 09/29/23 bisacodyl 10 mg rectal suppository 10 mg RECTAL HS PRN Constipation 09/29/23 09/29/23 bisacodyl 5 mg tablet 5 mg PO HS 09/29/23 09/29/23 budesonide 0.25 mg/2 mL suspension 0.5 mg inhalation DAILY 09/29/23 09/29/23 for nebulization (Pulmicort) ceftriaxone 1 gram solution for 1 g IM DAILY 09/29/23 09/29/23 injection cephalexin 500 mg capsule 500 mg PO BID 09/29/23 09/29/23 cetirizine 10 mg tablet 10 mg PO DAILY PRN allergic 09/29/23 09/29/23 rhinitis ciprofloxacin HCl 500 mg tablet 500 mg PO BID 09/29/23 09/29/23 (Cipro) docusate sodium 100 mg capsule 100 mg PO BID 09/29/23 09/29/23 ferrous sulfate 325 mg (65 mg 325 mg PO BID 09/29/23 09/29/23 iron) capsule,extended release ipratropium 0.5 mg-albuterol 3 mg 3 ml inhalation Q4H 09/29/23 09/29/23 (2.5 mg base)/3 mL nebulization soln lidocaine 4 % topical patch 2 patch transdermal BID 09/29/23 09/29/23 (Lidocaine Pain Relief) lidocaine HCl 0.5 mg intradermal 0.5 mg intradermal ONCE 09/29/23 09/29/23 pen injector megestrol 625 mg/5 mL (125 mg/mL) 625 mg PO DAILY 09/29/23 09/29/23 oral suspension naloxone 4 mg/actuation nasal 1 spray intranasal Q2-3M PRN 09/29/23 09/29/23 spray (Narcan) overdose ondansetron 4 mg disintegrating 4 mg PO Q6H PRN Nausea 09/29/23 09/29/23 tablet potassium chloride 10 mEq 20 meq PO DAILY 09/29/23 09/29/23 capsule,extended release pregabalin 25 mg capsule (Lyrica) 25 mg PO TID 09/29/23 09/29/23 Allergies Allergy/AdvReac Type Severity Reaction Status Date / Time No Known Allergies Allergy Verified 09/28/23 21:28 Review of Systems Review of Systems: All systems reviewed & are unremarkable except as noted in HPI and below PMFSH Past Medical History Medical History Breast cancer Essential (primary) hypertension Hyperlipidemia LDL goal <130 Hypothyroidism, unspecified Lung cancer Malignant melanoma of scalp Shingles Surgical History Surgical History History of breast surgery resection of nipple/mass r/t cancer History of surgery of head resection - part of scalp Family History Family History Father Family history of liver disease, Onset Age: 55 Mother Family history of malignant neoplasm, Onset Age: 44 Other Family history of alcoholism Social History Social History Social History: Caffeine-coffee daily. Currently lives at home with her . Surrogate decision maker Ollie leslie, spouse. May also call Rober leslie, son. Code status: DNR. Years smoked: 7 Smoking status: Former smoker Second hand tobacco smoke exposure: No Additional smoking assessment comments: Pulled forward Alcohol intake: former Substance use: never Do You Feel Safe in your Home?: Yes Lack o
[2023-09-25 12:27] LABS: Hematocrit 36.7 % (37.0-47.0); Hemoglobin 10.9 g/dL (12.0-15.0); Mean Corpuscular HGB Conc 29.7 g/dl (32-36); Mean Corpuscular Hemoglobin 29.1 pg (26-34); Mean Corpuscular Volume 97.9 fl (80-100); Mean Platelet Volume 12.1 fl (7.4-10.4); Platelet Count Result 69 k/mm3 (150-375); Red Blood Count 3.75 M/mm3 (4.2-5.4); Red Cell Distribution Width 20.7 % (11.5-14.5); White Blood Count 16.1 K/mm3 (4.5-10.0)
[2023-09-25] MEDS: SODIUM CHLORIDE 0.9% IV 1,000 ML 999 ML IV CONT ×2 (12:34→12:58)
[2023-09-25 12:35] LABS: Appearance Urine Cloudy (Clear); Bacteria Urine Rare /hpf; Bilirubin Urine Negative (Negative); Budding Yeast Urine Present /hpf; Color Urine Dark Yellow (Yellow); Glucose Urine UA Negative (Negative); Hyaline Casts Urine Present /lpf; Ketones Urine 1+ mg/dL (Negative); Leukocyte Esterase Ur 1+ LEU/UL (Negative); Mucus Urine Present /lpf; Nitrate Urine Positive (Negative); Protein Urine 1+ mg/dL (Negative); RBC Urine >100 /hpf (0-2); Specific Grav Ur 1.025 (1.001-1.035); Squamous Epithelial Cell Urine Few /hpf (Few); Urobilinogen Urine 0.2 mg/dL (<2.0); WBC Urine 21-50 /hpf; pH Urine 5.5 (5.0-9.0)
[2023-09-25 12:36] LABS: Add Urine Microscopic? YES
[2023-09-25 12:42] LABS: Alanine Aminotransferase 46 U/L (6-35); Albumin Level 2.5 g/dL (3.5-5.1); Alkaline Phosphatase 105 U/L (38-126); Anion Gap 7 mmol/L (8-16); Aspartate Amino Transferase 56 U/L (14-36); Bilirubin,Total 0.7 mg/dL (0.2-1.3); Blood Urea Nitrogen 27 mg/dL (7-17); Calcium 7.7 mg/dL (8.4-10.2); Carbon Dioxide 18 mmol/L (22-30); Chloride 106 mmol/L (98-107); Estimated CRCL calculation 38 ml/min; Estimated Glomerular Filt Rate 60; Glucose 168 mg/dL (65-110); Potassium 5.6 mmol/L (3.4-5.0); Sodium 131 mmol/L (137-145)
[2023-09-25 12:54] LABS: Band Neutrophils Percent 10 % (0-6); Metamyelocytes Percent 6 %; Monocytes Absolute Manual 2.57 K/mm3 (0.1-0.90); Monocytes Percent Manual 16 % (3-9); Myelocytes Percent 1 %; Neutrophils Absolute Manual 11.59 K/mm3 (1.7-7.2); Neutrophils Percent Manual 62 % (46-73); Nucleated Red Blood Cells 9 %; Platelet Estimate Decreased (Adequate); Total Cells Counted 100
[2023-09-25 12:55] LABS: Anisocytosis 1+ (NORMAL); Burr Cells 1+ (NORMAL); Hypochromasia 1+ (NORMAL); Poikilocytosis 1+ (NORMAL); Schistocytes Rare (NORMAL)
[2023-09-25] MEDS: FLUCONAZOLE 150 MG TABLET PO (12:58)
[2023-09-25] MEDS: cefTRIAXone 2 GM/NS 100 ML 2 GM/100 ML BAG IVPB (12:58)
[2023-09-25] MEDS: ACETAMINOPHEN 500 MG TABLET 1000 MG PO (14:41)
[2023-09-25] MEDS: HEPARIN SODIUM LOCK FLUSH 500 UNITS/5 ML VIAL (16:25)
== END 2023-09-25 17:10 ==
PROVIDERS: Emergency Medicine; Emergency Provider Emergency Medicine; PCP Family Medicine
DX: N39.0 Urinary tract infection, site not specified (principal); E86.0 Dehydration; J18.9 Pneumonia, unspecified organism; I10 Essential (primary) hypertension; E78.5 Hyperlipidemia, unspecified; E03.9 Hypothyroidism, unspecified; Z85.820 Personal history of malignant melanoma of skin; Z85.3 Personal history of malignant neoplasm of breast; Z85.118 Personal history of other malignant neoplasm of bronchus and lung; Z85.841 Personal history of malignant neoplasm of brain; Z87.891 Personal history of nicotine dependence; R00.0 Tachycardia, unspecified; R94.31 Abnormal electrocardiogram [ECG] [EKG]
CPT/HCPCS: 36415; 71045; 80053; 81001; 85025; 85055; 87086; 87088; 87106; 93005; 96361; 96365; 99284; A9270; J0696; J1642; J7030

== ENCOUNTER 2023-09-28 21:14 | Inpatient (IN) | payer MEDICARE, SELFPAY ==
--- NOTE | ~2023-09-28 | XR_ITS ---
EXAMINATION: XR chest 1V portable DATE: 09/28/2023 21:55 INDICATION: Weakness. TECHNIQUE: A single frontal view of the chest was obtained. COMPARISON: Chest single view 09/25/2023 FINDINGS: A calcified right lung nodule and calcified right hilar lymph nodes are consistent with old granulomatous disease. There is mild atelectasis in left lower lung zone. No pleural effusion or pne umothorax. The heart size is normal. There is a right internal jugular port with tip at superior cavo atrial junction. IMPRESSION: 1. Mild atelectasis in left lower lung zone. Reviewed, dictated and finalized at location E. STERED NURSE FLOAT POOL
--- NOTE | ~2023-09-28 | CT_ITS ---
EXAMINATION: CT brain wo con DATE: 09/28/2023 22:25 INDICATION: Altered mental status. TECHNIQUE: Computed tomography (CT) of the head was performed without intravenous contrast. The mA wa s adjusted according to patient size. Iterative reconstruction technique was employed. The dose-lengt h product was 681.00 mGy-cm. COMPARISON: Head CT 08/08/2023 FINDINGS: There are scattered areas of low attenuation in the cerebral white matter. There is no intr acranial hemorrhage, acute infarction, or abnormal intracranial mass lesion. The ventricles are swetha l in size. There is mucosal thickening in the sphenoid sinuses. The mastoid air cells are normal. The re are likely changes of ocular lens replacement surgeries. IMPRESSION: 1. Stable extensive nonspecific cerebral white matter disease, which likely represents chronic small vessel ischemic disease. Reviewed, dictated and finalized at location E. ER ASSISTANT IMPRESSION: 1. Stable extensive nonspecific cerebral white matter disease, which likely rep resents chronic small vessel ischemic disease.
--- NOTE | ~2023-09-28 | CT_ITS ---
EXAMINATION: CT abdomen pelvis w con DATE: 09/28/2023 22:34 INDICATION: Abdominal pain. TECHNIQUE: Computed tomography (CT) of the abdomen and pelvis was performed with 100 mL Omnipaque 350 intravenous contrast. Automated exposure control and iterative reconstruction technique were employe d. The dose-length product was 832.74 mGy-cm. COMPARISON: CT abdomen and pelvis 08/17/2023 FINDINGS: The visualized portions of the lung bases demonstrate groundglass opacities in right upper lobe. There is bronchiectasis in right middle lobe with mild atelectasis and scarring. There are airs pace and groundglass opacities in left lower lobe. No pleural effusion. The heart size is normal. The re are coronary artery calcifications. No pericardial effusion. There are pulmonary emboli in right u pper lobe. The liver and spleen are normal. There are gallstones in the gallbladder, which is normal in size. There are scattered diverticula in the colon. There is wall thickening of the colon througho ut, consistent with colitis. The appendix is normal. There is moderate stenosis of celiac axis. There is no significant stenosis of superior mesenteric artery or inferior mesenteric artery. There is a s mall volume of ascites. There is deep vein thrombosis in the thighs. There is severe thoracic spondyl osis and moderate lumbar spondylosis. IMPRESSION: 1. Pancolitis. 2. Acute pulmonary emboli in right upper lobe. 3. Deep vein thrombosis in the thighs bilaterally. 4. Groundglass opacities in right lung upper lobe and airspace and groundglass opacities in left lowe r lobe, consistent with infarct versus pneumonia. 5. Small volume of ascites. Reviewed, dictated and finalized at location E. ATTENDANT IMPRESSION: 1. Pancolitis. 2. Acute pulmonary emboli in right upper lobe. 3. Deep vein thrombosis in the thighs bilaterally. 4. Groundglass opacities in right lung upper lobe and airspace and groundglass opacities in left lower lobe, consistent with infarct versus pneumonia. 5. Small volume of ascites.
[2023-09-28 21:16] VITALS: BP 108/75; PULSE 113; RESP 15; O2SAT 100
[2023-09-28 21:19] VITALS: BP 108/76; PULSE 112; RESP 20; TEMP 36.3; O2SAT 97
[2023-09-28 21:29] VITALS: PULSE 111
--- NOTE | 2023-09-28 21:36 | ECG_ITS ---
Measurements Intervals [place] Rate: 110 P: 28 [place]: 142 QRS: 9 QRSD: 69 T: 44 QT: 313 QTc: 423 Interpretive Statements SINUS TACHYCARDIA DELAYED PRECORDIAL R/S TRANSITION CONSIDER INFERIOR INFARCT, AGE INDETERMINATE BASELINE ARTIFACT- II, III, AVL, AVF ABNORMAL ECG COMPARED TO ECG 09/25/2023 10:48:54 NO SIGNIFICANT CHANGES Electronically Signed On 09-29-2023 6:40:12 MECHANICAL ENGINEERING COOP by Natanael Riddle D.O.
[2023-09-28 21:52] VITALS: BP 109/57; PULSE 95; RESP 22; O2SAT 97
[2023-09-28 22:09] LABS: Alanine Aminotransferase 51 U/L (6-35); Albumin Level 2.8 g/dL (3.5-5.1); Alkaline Phosphatase 149 U/L (38-126); Anion Gap 12 mmol/L (8-16); Aspartate Amino Transferase 65 U/L (14-36); Bilirubin,Total 1.4 mg/dL (0.2-1.3); Blood Urea Nitrogen 28 mg/dL (7-17); Calcium 8.3 mg/dL (8.4-10.2); Carbon Dioxide 16 mmol/L (22-30); Chloride 108 mmol/L (98-107); Estimated CRCL calculation 40 ml/min; Estimated Glomerular Filt Rate > 60; Glucose 166 mg/dL (65-110); Lipase 110 U/L (23-300); Magnesium 2.6 mg/dL (1.6-2.3); Potassium 5.1 mmol/L (3.4-5.0); Sodium 136 mmol/L (137-145)
[2023-09-28 22:26] LABS: Procalcitonin 1.3 ng/mL; Troponin I 0.041 ng/mL (0.000-0.034)
[2023-09-28 22:31] LABS: INR 1.1; Partial Thromboplastin Time 25.9 SECONDS (22.3-36.8); Prothrombin Time 14.6 Seconds (11.1-14.7)
[2023-09-28] MEDS: SODIUM CHLORIDE 0.9% IV 1,000 ML 999 ML IV CONT ×3 (22:34→23:31)
[2023-09-28] MEDS: MORPHINE SULFATE (*CRX) 4 MG/ML INJ 2 MG IV PUSH (22:34)
[2023-09-28 22:35] LABS: Influenza A QL RT-PCR Negative (Negative); Influenza B QL RT-PCR Negative (Negative); RSV RNA, RT-PCR Negative (Negative); SARS-CoV-2 RNA PCR Negative (Negative)
[2023-09-28 23:32] VITALS: PULSE 106; RESP 15; O2SAT 93
[2023-09-28 23:43] LABS: Appearance Urine Clear (Clear); Bilirubin Urine Negative (Negative); Blood Urine Negative (Negative); Color Urine Yellow (Yellow); Glucose Urine UA Negative (Negative); Ketones Urine Negative (Negative); Leukocyte Esterase Ur Negative LEU/UL (Negative); Nitrate Urine Negative (Negative); Protein Urine Negative (Negative); Specific Grav Ur 1.028 (1.001-1.035); Urobilinogen Urine 0.2 mg/dL (<2.0); pH Urine 5.5 (5.0-9.0)
--- NOTE | 2023-09-28 23:52 | ED.GENADULT ---
HPI - General Adult General Chief complaint: Altered Mental Status Stated complaint: altered loc Time Seen by Provider: 09/28/23 21:27 History of Present Illness HPI narrative: patient is 83-year-old female who presents emergency department with chief complaint of generalized weakness dehydration change in mental status patient recently was treated for a UTI and was hydrated in the emergency department. The patient has history of metastatic melanoma and reports that she has also been having abdominal pain the patient has also had some diarrhea as well per the family the patient is DNR and they are contemplating possible hospice care Related Data Home Medications Medication Instructions Recorded Confirmed levothyroxine 75 mcg capsule 88 mcg PO DAILY 07/18/23 09/20/23 pantoprazole 40 mg tablet,delayed 40 mg PO QAM 07/18/23 09/20/23 release (Protonix) prednisone 20 mg tablet 40 mg PO DAILY 08/02/23 09/20/23 Allergies Allergy/AdvReac Type Severity Reaction Status Date / Time No Known Allergies Allergy Verified 09/28/23 21:28 Review of Systems Review of Systems: A 10 system review of systems was completed on the patient and is negative except for what is stated in the HPI. Nursing and ancillary documentation was reviewed. COUNT INCLUDES [facility] Past Medical History Medical History Breast cancer Essential (primary) hypertension Hyperlipidemia LDL goal <130 Hypothyroidism, unspecified Lung cancer Malignant melanoma of scalp Shingles Surgical History Surgical History History of breast surgery resection of nipple/mass r/t cancer History of surgery of head resection - part of scalp Family History Family History Father Family history of liver disease, Onset Age: 55 Mother Family history of malignant neoplasm, Onset Age: 44 Other Family history of alcoholism Social History Social History Social History: Caffeine-coffee daily. Currently lives at home with her . Surrogate decision maker Ollie leslie, spouse. May also call Rober leslie, son. Code status: DNR. Years smoked: 7 Smoking status: Former smoker Tobacco type: cigarettes Second hand tobacco smoke exposure: No Additional smoking assessment comments: pt states she smoke one pack of cigarettes per day and staopped in 1963 Alcohol intake: former Substance use: never Lack of Transportation: No Lack of Food: Never True Current Housing: I Have Housing Concerned About Future Housing: No Difficulty Paying Gas/Electric Bills: No Difficulty Paying for Meds: No Currently Unemployed: No Education: Grade School Difficulty w/ Childcare or Family Care: No Spiritual care concerns: No Exam Narrative: GENERAL: Well-appearing, well-nourished, and in no acute distress. HEAD: Normocephalic, atraumatic. EYES: PERRLA and EOMI. ENT: Nares clear, no rhinorrhea or epistaxis. Mucous membranes moist. NECK: Supple. CHEST: Clear to auscultation. No respiratory distress. HEART: Regular rate and rhythm. No murmur heard. Normal peripheral pulses. ABDOMEN: Soft, diffuse mild tenderness, nondistended, normal active bowel sounds. EXTREMITIES: Normal range of motion. No edema. SKIN: Warm, dry, no rash. NEURO: No focal deficits. Alert and oriented x3 slow to respond. PSYCH: Normal mood and affect. Course Vital Signs Vital signs: Vital Signs Pulse Rate 113 H 09/28/23 21:16 Respiratory Rate 15 09/28/23 21:16 Blood Pressure 108/75 09/28/23 21:16 Pulse Oximetry 100 09/28/23 21:16 Temperature 36.3 C L 09/28/23 21:19 Pulse Rate 106 H 09/28/23 23:32 Respiratory Rate 15 09/28/23 23:32 Blood Pressure 109/57 L 09/28/23 21:52 Pulse Oximetry 93 09/05
[2023-09-29] VITALS (22 sets, daily range): BP systolic 87–105; BP diastolic 44–70; PULSE 100–115; RESP 16–24; TEMP 35.8–36.5; O2SAT 91–97; BMI 23.4; BMI 27.7
[2023-09-29 00:02] LABS: Add Urine Microscopic? NO
[2023-09-29] MEDS: MORPHINE SULFATE (*CRX) 4 MG/ML INJ IV PUSH ×2 (00:07→22:42)
--- NOTE | 2023-09-29 00:14 | PM.IMHP ---
H&P: HPI History of Present Illness Date/Time: 09/29/23 00:14 Chief Complaint: Generalized weakness and altered mental status Narrative: Patient was brought to the ED for evaluation of generalized weakness and altered mental status. She is assisted to complain of abdominal pain, she does have history of metastatic melanoma. She was recently treated in the ED for UTI with antibiotic and IV hydration. Family denies history of fever chills nausea vomiting. She was evaluated in the ER and found to have right upper lobe pulmonary embolism and bilateral type DVT, consolidative changes in the lungs suggestive of pneumonia and also pancolitis. Her platelet count was 69k, she also has leukocytosis, lactic acidosis. She was started on antibiotic and heparin drip in the ED. Per protocol recheck platelet count was 9, a significant drop from 69. And heparin was discontinued at the ER. Patient was admitted to IMU for further management. Review of Systems Review of Systems: All systems reviewed & are unremarkable except as noted in HPI and below PMFSH Past Medical History Medical History Breast cancer Essential (primary) hypertension Hyperlipidemia LDL goal <130 Hypothyroidism, unspecified Lung cancer Malignant melanoma of scalp Shingles Surgical History Surgical History History of breast surgery resection of nipple/mass r/t cancer History of surgery of head resection - part of scalp Family History Family History Father Family history of liver disease, Onset Age: 55 Mother Family history of malignant neoplasm, Onset Age: 44 Other Family history of alcoholism Social History Social History Social History: Caffeine-coffee daily. Currently lives at home with her . Surrogate decision maker Ollie leslie, spouse. May also call Rober leslie, son. Code status: DNR. Years smoked: 7 Smoking status: Former smoker Second hand tobacco smoke exposure: No Additional smoking assessment comments: Pulled forward Alcohol intake: former Substance use: never Do You Feel Safe in your Home?: Yes Lack of Transportation: No Lack of Food: Never True Current Housing: I Have Housing Concerned About Future Housing: No Difficulty Paying Gas/Electric Bills: No Difficulty Paying for Meds: No Currently Unemployed: No Education: Grade School Difficulty w/ Childcare or Family Care: No Spiritual care concerns: No Meds Home Medications and Allergies Home Medications Medication Instructions Recorded Confirmed Type levothyroxine 75 mcg capsule 88 mcg PO DAILY 07/18/23 09/29/23 History pantoprazole 40 mg tablet,delayed 40 mg PO DAILY 07/18/23 09/29/23 History release (Protonix) prednisone 20 mg tablet 10 mg PO DAILY 08/02/23 09/29/23 History amlodipine 5 mg tablet (Norvasc) 5 mg PO QAM #30 tabs 08/21/23 09/20/23 Rx oxycodone-acetaminophen 5 mg-325 1 tablet PO Q6H PRN Pain Rated 08/21/23 09/20/23 Rx mg tablet 7-10 #28 tabs simethicone 80 mg chewable tablet 80 mg PO QID #30 tabs 08/21/23 09/29/23 Rx amitriptyline 150 mg tablet 25 mg PO QHS 09/29/23 09/29/23 History bisacodyl 10 mg rectal suppository 10 mg RECTAL HS PRN Constipation 09/29/23 09/29/23 History bisacodyl 5 mg tablet 5 mg PO HS 09/29/23 09/29/23 History budesonide 0.25 mg/2 mL suspension 0.5 mg inhalation DAILY 09/29/23 09/29/23 History for nebulization (Pulmicort) ceftriaxone 1 gram solution for 1 g IM DAILY 09/29/23 09/29/23 History injection cephalexin 500 mg capsule 500 mg PO BID 09/29/23 09/29/23 History cetirizine 10 mg tablet 10 mg PO DAILY PRN allergic 09/29/23 09/29/23 History rhinitis ciprofloxacin HCl 500 mg tablet 500 mg PO BID 09/29/23 09/29/23 History (Cipro)
[2023-09-29 00:28] LABS: Hematocrit 30.7 % (37.0-47.0); Hemoglobin 9.2 g/dL (12.0-15.0); Mean Corpuscular Hemoglobin 29.6 pg (26-34); Mean Corpuscular Volume 98.7 fl (80-100); Red Blood Count 3.11 M/mm3 (4.2-5.4); Red Cell Distribution Width 21.4 % (11.5-14.5); White Blood Count 11.6 K/mm3 (4.5-10.0)
[2023-09-29 00:32] LABS: Platelet Count Result 9 k/mm3 (150-375)
[2023-09-29 00:51] LABS: INR 1.2; Partial Thromboplastin Time 29.9 SECONDS (22.3-36.8); Prothrombin Time 15.6 Seconds (11.1-14.7)
[2023-09-29 00:54] LABS: Anisocytosis 1+ (NORMAL); Burr Cells 1+ (NORMAL); Large Platelets Present; Platelet Estimate Decreased (Adequate); Poikilocytosis 1+ (NORMAL)
[2023-09-29 00:55] LABS: Total Cells Counted 100
[2023-09-29 01:01] LABS: Band Neutrophils Percent 3 % (0-6); Lymphocytes Percent Manual 13 % (18-44); Metamyelocytes Percent 4 %; Monocytes Percent Manual 19 % (3-9); Myelocytes Percent 2 %; Neutrophils Absolute Manual 7.19 K/mm3 (1.7-7.2); Neutrophils Percent Manual 59 % (46-73)
[2023-09-29 01:02] LABS: Nucleated Red Blood Cells 40 %; Ovalocytes 1+ (NORMAL)
[2023-09-29 01:03] LABS: Atypical Lymphocytes Present; Schistocytes None Seen (NORMAL)
[2023-09-29 01:17] LABS: Reflex Lactic Acid Yes or No Add Lactic
--- NOTE | 2023-09-29 02:01 | ADMGEN ---
This patient, Lanette Ceballos, was admitted to IMU Room 203-01. Patient/family oriented to hospital policies and general routines including ID bracelet, bed and alarms, visiting hours, pain management, procedures, bathroom and other care routines, personal items, smoking policy, room service/diet, and visiting hours. Information on how to activate the Rapid Response Team has been discussed. Patient/Family are encouraged to report perceived risks to care and to ask questions if they do not understand what they are told or what they should do.
[2023-09-29] MEDS: AZITHROMYCIN 500 MG/NS 250 ML 500 MG/250 ML BAG 250 MG IVPB (02:16)
[2023-09-29] MEDS: SODIUM CHLORIDE 0.9% IV 1,000 ML 100 ML IV CONT (02:16)
[2023-09-29 02:31] LABS: Lactic Acid 2.7 mmol/L (0.7-2.0)
[2023-09-29] MEDS: VANCOMYCIN 1,500 MG/NS 500 ML 1,500 MG/500 ML BAG 250 MG IVPB (03:17)
[2023-09-29 04:41] LABS: MRSA (PCR) NOT DETECTED (NOT DETECTE)
[2023-09-29 07:54] LABS: Hematocrit 32.1 % (37.0-47.0); Hemoglobin 9.4 g/dL (12.0-15.0); Immature Platelet Fraction Pct 17.5 % (0.9-11.2); Mean Corpuscular HGB Conc 29.3 g/dl (32-36); Mean Corpuscular Hemoglobin 29.9 pg (26-34); Mean Corpuscular Volume 102.2 fl (80-100); Red Blood Count 3.14 M/mm3 (4.2-5.4); Red Cell Distribution Width 21.7 % (11.5-14.5); White Blood Count 11.6 K/mm3 (4.5-10.0)
[2023-09-29 08:01] LABS: INR 1.1
[2023-09-29 08:02] LABS: Partial Thromboplastin Time 28.1 SECONDS (22.3-36.8)
[2023-09-29 08:08] LABS: Anion Gap 9 mmol/L (8-16); Blood Urea Nitrogen 23 mg/dL (7-17); Calcium 7.1 mg/dL (8.4-10.2); Carbon Dioxide 14 mmol/L (22-30); Chloride 117 mmol/L (98-107); Estimated CRCL calculation 51 ml/min; Estimated Glomerular Filt Rate > 60; Glucose 143 mg/dL (65-110); Potassium 4.1 mmol/L (3.4-5.0); Sodium 140 mmol/L (137-145)
[2023-09-29 08:11] LABS: Platelet Count Result 12 k/mm3 (150-375)
[2023-09-29 08:36] LABS: Band Neutrophils Percent 4 % (0-6); Lymphocytes Absolute Manual 2.78 K/mm3 (1.1-4.5); Monocytes Absolute Manual 1.04 K/mm3 (0.1-0.90); Monocytes Percent Manual 9 % (3-9); Myelocytes Percent 1 %; Neutrophils Absolute Manual 7.65 K/mm3 (1.7-7.2); Neutrophils Percent Manual 62 % (46-73); Nucleated Red Blood Cells 40 %; Total Cells Counted 100
[2023-09-29 08:37] LABS: Anisocytosis 1+ (NORMAL); Platelet Estimate Decreased (Adequate); Schistocytes Rare (NORMAL)
--- NOTE | 2023-09-29 10:11 | PM.IMPN ---
Progress Note: A&P Assessment and Plan (1) Acute pulmonary embolism: Code(s): I26.99 - Other pulmonary embolism without acute cor pulmonale Status: Acute (2) Pneumonia: Code(s): J18.9 - Pneumonia, unspecified organism Status: Acute (3) Deep vein thrombosis (DVT) of both lower extremities: Code(s): I82.403 - Acute embolism and thrombosis of unspecified deep veins of lower extremity, bilateral Status: Acute (4) Pancolitis: Code(s): K51.00 - Ulcerative (chronic) pancolitis without complications Status: Acute Plan This is 83-year-old female from nursing generalized altered mental status. Reports some abdominal pain. History of metastatic tried in the past. Some form colonic mass on chemotherapy per family unknown treatment plan and management recently presented the ED with UTI was treated with antibiotics. ED evaluation showed severe thrombocytopenia down to 9000 from 69 K 3 days ago. She has right chest port for which she gets heparin flushes regularly. CT abdomen revealed leyva colitis along with findings pneumonia and tap right upper lobe pulmonary embolism and bilateral thigh DVT. Suspicious for heparin-induced thrombocytopenia versus DIC. Will get a DIC panel. Due to possibility of heparin-induced thrombocytopenia will start on argatroban drip. Discussed with professional athlete who recommends argatroban drip. Will continue broad-spectrum antibiotics blood culture obtained in the ER. Urinalysis recently with [facility] L tropicalis. Recently on steroid treatment for autoimmune hepatitis. MRSA nares negative will stop vancomycin continue on Flagyl and cefepime. Code status do not resuscitate Continue to follow seems to be leaning towards hospice enrollment. Subjective Date/time seen: 09/29/23 10:11 Interval history: Chart reviewed. Discussed with [id number] patient obtunded and lethargic does follow some commands reported some diarrhea ever nursing has not noticed any since admission history of autoimmune hepatitis on prednisone Review of Systems Review of Systems: All systems reviewed & are unremarkable except as noted in HPI and below Exam Narrative: General: Opens eye to verbal commands, lethargic, confused, not in distress HEENT: Normocephalic atraumatic Respiratory: Diffuse decreasing entry bilaterally, no wheezing no rales Cardiovascular: Regular rate and rhythm no pedal edema Gastrointestinal: Nondistended, mild diffuse tenderness. Musculoskeletal/skin: No rash Neuro: Wakes up on verbal commands lethargic and somnolent generalized weakness Objective Data Vital Signs Vital Signs: Vital Signs - 24 hr 09/28/23 21:19 09/28/23 21:29 09/28/23 21:16 Temperature 97.4 F L Pulse Rate 112 H 111 H 113 H Respiratory Rate 20 15 Blood Pressure 108/76 108/75 Pulse Oximetry 97 100 Oxygen Delivery Room Air 09/28/23 21:52 09/28/23 23:32 09/29/23 01:06 Temperature Pulse Rate 95 106 H 100 Respiratory Rate 22 H 15 24 H Blood Pressure 109/57 L 105/70 Pulse Oximetry 97 93 94 Oxygen Delivery 09/29/23 01:10 09/29/23 02:00 09/29/23 01:56 Temperature 96.4 F L 97.3 F L Pulse Rate 104 H 101 H Respiratory Rate 16 Blood Pressure 95/50 L Pulse Oximetry 95 Oxygen Delivery 09/29/23 04:28 09/29/23 04:00 09/29/23 06:00 Temperature 97.5 F L Pulse Rate 102 H 101 H 103 H Respiratory Rate 16 Blood Pressure 102/63 Pulse Oximetry 97 Oxygen Delivery 09/29/23 07:42 Temperature 97.6 F Pulse Rate 106 H Respiratory Rate 16 Blood Pressure 94/56 L Pulse Oximetry 94 Oxygen Delivery Intake/Output Intake/Output: Intake & Output 09/26/23 09/27/23 09/28/23 09/29/23 23:59 23:59 23:59 23:59 Intake Total 1999 Output Total 850 Balance 1150 Meds/Results Medications: Active Medications Generic Name Dose Route Start Last Admin Trade Name Freq PRN Reason Stop Dose Admin Heparin Sodium (Porcine) 500 units
[2023-09-29] MEDS: IPRATROPIUM 0.5 MG/ALBUTEROL SULFATE 2.5 MG AMPUL.NEB 3 ML INHALATION ×3 (11:25→20:05)
[2023-09-29 11:39] LABS: Magnesium 2.2 mg/dL (1.6-2.3)
[2023-09-29 11:44] LABS: Hematocrit 31.2 % (37.0-47.0); Hemoglobin 9.1 g/dL (12.0-15.0); Immature Platelet Fraction Pct 20.4 % (0.9-11.2); Mean Corpuscular HGB Conc 29.2 g/dl (32-36); Mean Corpuscular Hemoglobin 30.1 pg (26-34); Mean Corpuscular Volume 103.3 fl (80-100); Red Blood Count 3.02 M/mm3 (4.2-5.4); Red Cell Distribution Width 21.8 % (11.5-14.5); White Blood Count 11.8 K/mm3 (4.5-10.0)
[2023-09-29] MEDS: CEFEPIME 2 GM/NS 50 ML 2 GM/50 ML BAG IVPB (11:45)
[2023-09-29] MEDS: metroNIDAZOLE 500 MG/ISO 100ML 500 MG/100 ML BAG 100 MG IVPB (11:45)
[2023-09-29 11:49] LABS: Platelet Count Result 11 k/mm3 (150-375)
[2023-09-29 11:54] LABS: INR 1.1; Partial Thromboplastin Time 25.7 SECONDS (22.3-36.8); Prothrombin Time 14.3 Seconds (11.1-14.7)
[2023-09-29 11:55] LABS: Fibrinogen 277 mg/dl (215-510)
[2023-09-29 11:58] LABS: D Dimer 2.97 ug/mL (<0.48)
[2023-09-29] MEDS: SODIUM BICARBONATE 8.4% 100 MEQ in WATER, STERILE FOR INJECTION 1,000 ML IV CONT ×2 (11:59→22:42)
[2023-09-29 12:01] LABS: Hepatitis B Surface Antigen Negative (Negative)
[2023-09-29 12:07] LABS: HAV RESULT Negative (Negative); Hepatitis B Core IgM Result Negative (Negative)
[2023-09-29 12:15] LABS: Anisocytosis 2+ (NORMAL); Band Neutrophils Percent 4 % (0-6); Large Platelets Present; Lymphocytes Absolute Manual 2.83 K/mm3 (1.1-4.5); Metamyelocytes Percent 4 %; Monocytes Absolute Manual 1.65 K/mm3 (0.1-0.90); Monocytes Percent Manual 14 % (3-9); Myelocytes Percent 2 %; Neutrophils Percent Manual 52 % (46-73); Nucleated Red Blood Cells 44 %; Ovalocytes 1+ (NORMAL); Platelet Estimate Decreased (Adequate); Poikilocytosis 1+ (NORMAL); Schistocytes None Seen (NORMAL); Total Cells Counted 100
[2023-09-29 12:16] LABS: Burr Cells 1+ (NORMAL)
[2023-09-29 12:19] LABS: Hepatitis C Virus Antibody Negative (Negative)
--- NOTE | 2023-09-29 14:10 | PM.CNGS ---
Assessment and Plan Assessment and plan (1) Acute pulmonary embolism: Code(s): I26.99 - Other pulmonary embolism without acute cor pulmonale Status: Acute Assessment and Plan: Continue argatroban drip, await family decision regarding hospice, may need IVC filter if decision to proceed with medical care (2) Deep vein thrombosis (DVT) of both lower extremities: Code(s): I82.403 - Acute embolism and thrombosis of unspecified deep veins of lower extremity, bilateral Status: Acute Assessment and Plan: see above (3) Pancolitis: Code(s): K51.00 - Ulcerative (chronic) pancolitis without complications Status: Acute Assessment and Plan: exam largely benign, continue serial exams and antibiotics History of Present Illness Consult details Consult date: 09/29/23 Reason for consult: other (IVC filter placement) Requesting physician: Sena Mosquera MD Narrative: The patient is an 83-year-old female with multiple medical issues presenting to the emergency department with altered mental status, weakness. Workup in the emergency department was significant for UTI, pneumonia, leyva colitis, PE, bilateral DVT. The patient was started on heparin drip and IV antibiotics. The patient was noted to have a precipitous drop in her platelet count and heparin drip was stopped. A HIT panel has been ordered and is pending. The patient has since been started on a argatroban drip per Hematology recommendations. Surgery is consulted for possible IVC placement. Of note, the family is having a meeting to discuss hospice care this afternoon. All history is obtained via the chart as the patient is non communicative. Review of Systems Review of Systems: ROS unobtainable: Yes unobtainable due to mental status PMFSH Past Medical History Medical History Breast cancer Essential (primary) hypertension Hyperlipidemia LDL goal <130 Hypothyroidism, unspecified Lung cancer Malignant melanoma of scalp Shingles Surgical History Surgical History History of breast surgery resection of nipple/mass r/t cancer History of surgery of head resection - part of scalp Family History Family History Father Family history of liver disease, Onset Age: 55 Mother Family history of malignant neoplasm, Onset Age: 44 Other Family history of alcoholism Social History Social History Social History: Caffeine-coffee daily. Currently lives at home with her . Surrogate decision maker Ollie leslie, spouse. May also call Rober leslie, son. Code status: DNR. Years smoked: 7 Smoking status: Former smoker Second hand tobacco smoke exposure: No Additional smoking assessment comments: Pulled forward Alcohol intake: former Substance use: never Do You Feel Safe in your Home?: Yes Lack of Transportation: No Lack of Food: Never True Current Housing: I Have Housing Concerned About Future Housing: No Difficulty Paying Gas/Electric Bills: No Difficulty Paying for Meds: No Currently Unemployed: No Education: Grade School Difficulty w/ Childcare or Family Care: No Spiritual care concerns: No Meds Home Medications and Allergies Home Medications Medication Instructions Recorded Confirmed Type levothyroxine 75 mcg capsule 88 mcg PO DAILY 07/18/23 09/29/23 History pantoprazole 40 mg tablet,delayed 40 mg PO DAILY 07/18/23 09/29/23 History release (Protonix) prednisone 20 mg tablet 10 mg PO DAILY 08/02/23 09/29/23 History amlodipine 5 mg tablet (Norvasc) 5 mg PO QAM #30 tabs 08/21/23 09/20/23 Rx oxycodone-acetaminophen 5 mg-325 1 tablet PO Q6H PRN Pain Rated 08/21/23 09/20/23 Rx mg tablet 7-10 #28 tabs simethicone 80 mg chewable tablet 80 mg PO QID #3
[2023-09-29] MEDS: MORPHINE SULFATE (*CRX) 2 MG/ML INJ IV PUSH (18:13)
--- NOTE | 2023-09-29 21:56 | PC.NURSE ---
Report called to receiving RN for a transfer to room 259. Patient being transferred by bed. Family notified and all belongings sent with the patient.
[2023-09-29] MEDS: CENTRAL LINE FLUSH 10 ML IV PUSH (22:40)
[2023-09-30] MEDS: IPRATROPIUM 0.5 MG/ALBUTEROL SULFATE 2.5 MG AMPUL.NEB 3 ML INHALATION ×2 (02:30→07:53)
[2023-09-30 03:56] VITALS: BP 106/58; PULSE 110; RESP 10; TEMP 37.2; O2SAT 94
[2023-09-30] MEDS: CENTRAL LINE FLUSH 10 ML IV PUSH (05:40)
[2023-09-30 07:53] VITALS: PULSE 110; RESP 14; O2SAT 90
[2023-09-30 08:00] VITALS: PULSE 109; RESP 14
[2023-09-30] MEDS: SODIUM BICARBONATE 8.4% 100 MEQ in WATER, STERILE FOR INJECTION 1,000 ML IV CONT (09:23)
--- NOTE | 2023-09-30 10:45 | PM.PNGS ---
Progress Note: A&P Assessment and Plan (1) Acute pulmonary embolism: Code(s): I26.99 - Other pulmonary embolism without acute cor pulmonale Status: Acute Assessment and Plan: await hospice decision, will likely need IVC filter if decision to proceed with intervention (2) Pancolitis: Code(s): K51.00 - Ulcerative (chronic) pancolitis without complications Status: Acute Assessment and Plan: exam stable, cont to follow Subjective Subjective Date/Time Seen: 09/30/23 10:45 Interval history: no acute issues overnight, still DNR/CC at this time, family meeting today re: hospice care Review of Systems Review of Systems: ROS unobtainable: Yes unobtainable due to medical condition Exam Const: General: ill appearing, lethargic, patient obtunded and uncomfortable Resp: Auscultation: diminished lung sounds Cardio: Rate: regular rate Rhythm: regular rhythm GI: Inspection: normal to inspection GI Palp: Yes abdominal tenderness, Yes Soft to palpation, Yes Tenderness to palpation present (GI), No Guarding due to palpation present (GI) and No Rigid due to palpation Objective Data Vital Signs Vital Signs: Vital Signs - 24 hr 09/29/23 11:24 09/29/23 11:25 09/29/23 11:25 Temperature 36.4 C L Pulse Rate 109 H 100 100 Respiratory Rate 17 18 18 Blood Pressure 95/63 L Pulse Oximetry 91 93 Oxygen Delivery Room Air 09/29/23 11:34 09/29/23 15:00 09/29/23 15:10 Temperature Pulse Rate 110 H 111 H 113 H Respiratory Rate 18 18 18 Blood Pressure Pulse Oximetry Oxygen Delivery 09/29/23 15:33 09/29/23 12:00 09/29/23 14:00 Temperature 36.5 C Pulse Rate 113 H 111 H 112 H Respiratory Rate 18 Blood Pressure 99/53 L Pulse Oximetry 95 Oxygen Delivery 09/29/23 16:00 09/29/23 20:08 09/29/23 20:09 Temperature Pulse Rate 113 H 115 H Respiratory Rate 18 Blood Pressure Pulse Oximetry 94 Oxygen Delivery Room Air 09/29/23 20:00 09/29/23 22:36 09/30/23 03:56 Temperature 35.9 C L 37.2 C Pulse Rate 114 H 110 H Respiratory Rate 18 10 L Blood Pressure 87/44 L 106/58 L Pulse Oximetry 93 94 Oxygen Delivery Room Air 09/30/23 07:53 09/30/23 07:53 09/30/23 08:00 Temperature Pulse Rate 110 H 109 H Respiratory Rate 14 14 Blood Pressure Pulse Oximetry 90 Oxygen Delivery Room Air Intake/Output Intake/Output: Intake & Output 09/27/23 09/28/23 09/29/23 09/30/23 23:59 23:59 23:59 23:59 Intake Total 3860 1100 Output Total 2250 125 Balance 1610 975 Meds/Results Medications: Active Medications Generic Name Dose Route Start Last Admin Trade Name Freq PRN Reason Stop Dose Admin Albuterol/Ipratropium 3 ml 09/29/23 11:05 09/30/23 07:53 Ipratropium 0.5 Mg/Albuterol Sulfate 2.5 Mg Ampul.Neb 3 Ml INHALATION 3 ml Q4H ALEXSANDER Administration Atropine Sulfate 1 - 2 drop 09/29/23 16:41 Atropine Sulfate 1% Ophth Soln 5 Ml Bottle SUBLINGUAL Q4H PRN Secretions Heparin Sodium (Porcine) 500 units 09/29/23 06:38 Heparin Sodium Lock Flush 500 Units/5 Ml Syringe IV PUSH PRN PRN see comments below Sodium Bicarbonate 100 meq/ 1,100 mls @ 100 mls/hr 09/29/23 11:30 09/30/23 09:23 Sterile Water IV CONT 100 mls/hr .Q11H ALEXSANDER Administration Lorazepam 2 mg 09/29/23 16:41 Lorazepam Inj (*Crx) 2 Mg/Ml Vial IV PUSH Q2H PRN Anxiety/Comfort Morphine Sulfate 4 mg 09/28/23 23:56 09/29/23 22:42 Morphine Sulfate (*Crx) 4 Mg/Ml Inj IV PUSH 4 mg Q2H PRN Administration Pain Rated 7-10 Morphine Sulfate 2 mg 09/29/23 16:41 09/29/23 18:13 Morphine Sulfate (*Crx) 2 Mg/Ml Inj IV PUSH 2 mg Q30M PRN Administration COMFORT Sodium Chloride 10 ml 09/29/23 14:00 09/30/23 05:40 Central Line Flush IV PUSH 10 ml Q8HR ALEXSANDER Administration Sodium Chloride 10 ml 09/29/23 06:38 Central Line Flush IV PUSH PRN PRN before/after int.
[2023-09-30] MEDS: LORazepam INJ (*CRX) 2 MG/ML VIAL IV PUSH (11:25)
--- NOTE | 2023-09-30 16:41 | PM.DS ---
DS: Admitting Diagnosis Discharge Date 09/30/23 Admitting Diagnosis Altered mental status DS: Discharge Diagnosis Discharge Diagnosis (1) Acute pulmonary embolism: Code(s): I26.99 - Other pulmonary embolism without acute cor pulmonale Status: Acute (2) Pneumonia: Code(s): J18.9 - Pneumonia, unspecified organism Status: Acute (3) Deep vein thrombosis (DVT) of both lower extremities: Code(s): I82.403 - Acute embolism and thrombosis of unspecified deep veins of lower extremity, bilateral Status: Acute (4) Pancolitis: Code(s): K51.00 - Ulcerative (chronic) pancolitis without complications Status: Acute DS: Summary Hospital Course Hospital Course: This is 83-year-old female from nursing generalized altered mental status.? Reports some abdominal pain.? History of metastatic melanoma in the past.? With further recurrence started back on chemotherapy per family and eventually was needed to be stopped due to complication recently presented the ED with UTI was treated with antibiotics.? Back with generalized weakness and altered mental status. ED evaluation showed severe thrombocytopenia down to 9000 from 69 K 3 days ago.? She has right chest port for which she gets heparin flushes regularly.? CT abdomen revealed leyva colitis along with findings pneumonia and tap right upper lobe pulmonary embolism and bilateral thigh DVT.? Suspicious for heparin-induced thrombocytopenia versus DIC.? Fibrinogen came back normal. Due to possibility of heparin-induced thrombocytopenia plan to start on argatroban drip and risks benefits reviewed with the family with risk of bleeding. Discussed with stepdown nurse who recommended argatroban drip. She was also started on broad-spectrum antibiotics blood culture obtained in the ER which remained negative.? Urinalysis recently with Maria L tropicalis.? 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 MRSA nares negative patient code status was do not resuscitate. After discussion the family reported continued decline since June last year and with the ongoing issue wanted her to be comfortable. Comfort measures were initiated at that point and will be transitioned to inpatient hospice. Time Spent with Patient Time attestation: Total time spent providing and/or coordinating discharge services: 35 minutes Exam Narrative: General: Opens eye to verbal commands, lethargic, confused, in mild distress HEENT: Normocephalic atraumatic Respiratory: Diffuse decreasing entry bilaterally, no wheezing no rales Cardiovascular: Regular rate and rhythm no pedal edema Gastrointestinal: Nondistended, mild diffuse tenderness. Musculoskeletal/skin: No rash Neuro: Wakes up on verbal commands lethargic and somnolent generalized weakness DS: Data Data Completed and Pending Labs on day of discharge: Preliminary micro results at discharge 09/29/23 00:05 Blood Culture - Preliminary Blood 09/29/23 00:05 Blood Culture - Preliminary Blood Imaging Radiologist's impression: ITS Impressions Chest X-Ray 09/28/23 21:57 IMPRESSION: 1. Mild atelectasis in left lower lung zone. Head CT 09/28/23 22:27 IMPRESSION: 1. Stable extensive nonspecific cerebral white matter disease, which likely represents chronic small vessel ischemic disease. Abdomen/Pelvis CT 09/28/23 22:35 IMPRESSION: 1. Pancolitis. 2. Acute pulmonary emboli in right upper lobe. 3. Deep vein thrombosis in the thighs bilaterally. 4. Groundglass opacities in right lung upper lobe and airspace and groundglass opacities in left lower lobe, consistent with infarct versus pneumonia. 5. Small volume of ascites. Discharge Plan Discharge Consulting providers: Stephania Day; Jenny العراقي; Sushil Meneses Discharging Clinician: Foreign Javier Anticipated Discharge Date/Time: 09/30/23 09:41 Patient Disposition: Hospice - Medical Facility Activity: dag[facility]
[2023-10-02 11:33] LABS: Heparin Induced Platelet Antib Negative (Negative)
[2023-10-02 14:47] LABS: UFH SRA Result Interpretation Negative (Negative)
[2023-10-05 22:43] LABS: Platelet Ab,Indirect (IgA) NEGATIVE (NEGATIVE); Platelet Ab,Indirect (IgG) NEGATIVE (NEGATIVE); Platelet Ab,Indirect (IgM) NEGATIVE (NEGATIVE)
== END 2023-09-30 12:02 | disposition hospice, inpatient (51) | DRG 175 ==
LOC: ANHED 23:56 → ANHIMU 09-29 00:24 → ANH2MED 09-29 22:34
PROVIDERS: Admitting Provider Student in an Organized Health Care Education/Training Program; Emergency Provider Emergency Medicine; PCP Family Medicine; Visit Provider Internal Medicine
DX: I26.99 Other pulmonary embolism without acute cor pulmonale (principal); J18.9 Pneumonia, unspecified organism; K51.00 Ulcerative (chronic) pancolitis without complications; I82.403 Acute embolism and thrombosis of unspecified deep veins of lower extremity, bilateral; N39.0 Urinary tract infection, site not specified; C43.4 Malignant melanoma of scalp and neck; D69.59 Other secondary thrombocytopenia; T45.515A Adverse effect of anticoagulants, initial encounter; Z66 Do not resuscitate; I10 Essential (primary) hypertension; E78.5 Hyperlipidemia, unspecified; E03.9 Hypothyroidism, unspecified; Z85.3 Personal history of malignant neoplasm of breast; Z87.891 Personal history of nicotine dependence; Z85.118 Personal history of other malignant neoplasm of bronchus and lung; Z51.5 Encounter for palliative care
CPT/HCPCS: 36415; 70450; 71045; 74177; 80048; 80053; 80074; 81001; 81003; 83605; 83690; 83735; 84145; 84484; 85025; 85055; 85380; 85384; 85610; 85730; 86022; 87040; 87637; 87641; 93005; 94640; 96361; 96374; 96375; 96376; 99291; A9270; G0378; J0456; J0692; J0696; J1644; J1836; J2060; J2270; J3370; J7030; Q9967

== ENCOUNTER 2023-09-30 12:04 | HOS | payer OTHER, MEDICARE, SELFPAY ==
--- NOTE | 2023-09-30 12:30 | PM.IMHP ---
H&P: HPI History of Present Illness Date/Time: 09/30/23 12:30 Chief Complaint: Uncontrolled pain and dyspnea Narrative: 83-year-old female with history of breast cancer in remission was diagnosed with metastatic melanoma and 2019. She did well with surgical excision and subsequent immunotherapy upon recurrence. 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 She had gamma knife radiation for the brain issues. She was on immunomodulator therapy until July when she experienced shingles. She took prednisone for that and post herpetic neuralgia. Her functional status has been declining rapidly since then. She was residing in a nursing facility when she was sent to the emergency department September 25 for increased weakness and altered mental status. She was diagnosed with urinary tract infection but did not improve with treatment for that so the facility sent her back to the emergency department. She had swelling in her legs and increased shortness of breath along with mental status changes and worsening weakness. She presented the emergency department on September 28 and was found to have bilateral DVTs and pulmonary emboli. She was treated with IV heparin but experience thrombocytopenia with platelet count 13713. She was also treated empirically with ceftriaxone and azithromycin for possible pneumonia with pulmonary infiltrates. She did not improve with this therapy. Surgical consultation was obtained regarding IVC filter and she was deemed a poor surgical candidate. She was experiencing shortness of breath and discomfort and restlessness. Due to her poor functional status metastatic cancer and failure to improve on medical therapy her family opted for inpatient hospice service for symptom management. [facility] Past Medical History Medical History Breast cancer Essential (primary) hypertension Hyperlipidemia LDL goal <130 Hypothyroidism, unspecified Lung cancer Malignant melanoma of scalp Shingles Surgical History Surgical History History of breast surgery resection of nipple/mass r/t cancer History of surgery of head resection - part of scalp Family History Family History Father Family history of liver disease, Onset Age: 55 Mother Family history of malignant neoplasm, Onset Age: 44 Other Family history of alcoholism Social History Social History Social History: Caffeine-coffee daily. Currently lives at home with her . Surrogate decision maker Ollie leslie, spouse. May also call Rober leslie, son. Code status: DNR. Years smoked: 7 Smoking status: Former smoker Second hand tobacco smoke exposure: No Additional smoking assessment comments: Pulled forward Alcohol intake: former Substance use: never Do You Feel Safe in your Home?: Yes Lack of Transportation: No Lack of Food: Never True Current Housing: I Have Housing Concerned About Future Housing: No Difficulty Paying Gas/Electric Bills: No Difficulty Paying for Meds: No Currently Unemployed: No Education: Grade School Difficulty w/ Childcare or Family Care: No Spiritual care concerns: No Meds Home Medications and Allergies Home Medications Medication Instructions Recorded Confirmed Type levothyroxine 75 mcg capsule 88 mcg PO DAILY 07/18/23 09/29/23 History pantoprazole 40 mg tablet,delayed 40 mg PO DAILY 07/18/23 09/29/23 History release (Protonix) prednisone 20 mg tablet 10 mg PO DAILY 08/02/23 09/29/23 History amlodipine 5 mg tablet (Norvasc) 5 mg PO QAM #30 tabs 08/21/23 09/20/23 Rx oxycodone-acetaminophen 5 mg-325 1 tablet PO Q6H PRN Pain Rated 08/21/23 09/20/23 Rx mg tablet 7-10 #28 tabs simethicone 80 mg chewable tablet 80 mg PO QID #30 tabs 12
--- NOTE | 2023-10-01 12:02 | P.DN_ITS ---
Discharge Summary Date and Time Date of : 09/30/23 Time of : 13:05 Provider Pronounced By: LOKESH Altamirano and LOKESH Beckman Probable Cause of Probable Cause of : Deep venous thromboses with bilateral multiple pulmonary emboli secondary to underlying metastatic melanoma. Summary Hospital Course: Admitted to inpatient hospice service for uncontrolled dyspnea restlessness and pain. Comfort medications were administered intravenously and symptoms were well controlled prior to initiation of morphine drip. Due to her imminent status and well controlled symptoms morphine drip was held and Mrs. Ceballos peacefully with family at bedside. Additional Data Confirmation of as documented by pronouncing clinician: Palpable Pulses, Response to Stimuli, Heart Tones and Breath Sounds Name of Provider Notified: Dr. Chang Time Provider Notified: 13:18 Provider Requests Autopsy: No Family Requests Autopsy: No Procedure Tech Notified: Yes Date [facility] Notified of : 09/30/23 Time [facility] Notified of : 13:09
== END 2023-09-30 13:05 | disposition expired | DRG 951 ==
PROVIDERS: Admitting Provider Internal Medicine; PCP Family Medicine; Visit Provider Internal Medicine
DX: Z51.5 Encounter for palliative care (principal); I26.99 Other pulmonary embolism without acute cor pulmonale; J18.9 Pneumonia, unspecified organism; I82.403 Acute embolism and thrombosis of unspecified deep veins of lower extremity, bilateral; C79.51 Secondary malignant neoplasm of bone; C79.31 Secondary malignant neoplasm of brain; C78.5 Secondary malignant neoplasm of large intestine and rectum; C43.4 Malignant melanoma of scalp and neck; K52.9 Noninfective gastroenteritis and colitis, unspecified; D64.9 Anemia, unspecified; D69.6 Thrombocytopenia, unspecified; Z66 Do not resuscitate; I10 Essential (primary) hypertension; E78.5 Hyperlipidemia, unspecified; E03.9 Hypothyroidism, unspecified; Z85.3 Personal history of malignant neoplasm of breast; Z87.891 Personal history of nicotine dependence
CPT/HCPCS: A9270